=== PATIENT | female | born 1955 | race African-American/Black ===

== ENCOUNTER → 2016-07-03 | Outpatient (CLI) | payer OTHER ==
[2015-02-20 14:38] VITALS: BP 149/84
[~2016-07-03] MED LIST: ADAL40PE SQ; CHOL10003 PO; DOCU-27 PO; FOLI1TAB16 PO; FOLIC ACID PO; HYDR-965 PO; HYDR12.58 PO; HYDR25TA9 PO; LOSA25TA4 PO; METH2.5T PO; METO25TA4 PO; METO50TA2 PO; MULT1TAB52 PO; ONDA4TAB10 PO; SIMV40TA3 PO; TRAM-29 PO
[2016-07-03 12:13] LABS: BASO # 0.1 x10^3/uL (0.0-0.2); BASO % 1 % (0-3); EOS % 2 % (0-3); HEMOGLOBIN 12.4 g/dL (12.0-15.5); LYMPH # 1.4 x10^3/uL (1.0-4.8); LYMPH % 30 % (24-48); MEAN CORPUSCULAR HEMOGLOBIN 30 pg (25-35); MEAN CORPUSCULAR HGB CONC 33 g/dL (31-37); MEAN CORPUSCULAR VOLUME 92 fL (79-100); MONO % 10 % (0-9); NEUT % 57 % (31-73); PLATELET COUNT 217 x10^3/uL (140-400); RED BLOOD COUNT 4.12 x10^6/uL (3.50-5.40); RED CELL DISTRIBUTION WIDTH 12.7 % (11.5-14.5); WHITE BLOOD COUNT 4.5 x10^3/uL (4.0-11.0)
[2016-07-03 13:18] LABS: ALBUMIN 3.7 g/dL (3.4-5.0); ALBUMIN/GLOBULIN RATIO 1.1 (1.0-1.7); CALCIUM 9.2 mg/dL (8.5-10.1); CREATININE 0.8 mg/dL (0.6-1.0); GFR 87.7; POTASSIUM 4.4 mmol/L (3.5-5.1); TOTAL BILIRUBIN 0.7 mg/dL (0.2-1.0)
[2016-07-03 13:51] LABS: C-REACTIVE PROTEIN 0.9 mg/L (0-3.3)
== END | disposition home or self-care (01) ==
LOC: LAB 11:38
PROVIDERS: ATTEND Internal Medicine Rheumatology
DX: Z79.899 Other long term (current) drug therapy (principal)
CPT/HCPCS: 36415; 80053; 85027; 85651; 86140

== ENCOUNTER → 2017-01-12 | Outpatient (CLI) | payer OTHER ==
[2015-02-20 14:38] VITALS: BP 149/84
[~2017-01-12] MED LIST changes: +DOCU-109 PO; -DOCU-27 PO; -TRAM-29 PO; +TRAM-48 PO
--- NOTE | 2017-01-12 11:52 | RAD ---
Chest, 2 views, 01/12/2017: History: Shortness of breath, hypertension Comparison is made to a study from 10/26/2008. A left-sided transvenous pacemaker remains in place with 2 leads extending into the right heart. The heart size and pulmonary vascularity are normal. There are surgical sutures in the right lower chest with adjacent streaky parenchymal opacities probably representing scarring. There is a small nodule projected over the right upper chest. It has shown no definite change since 10/25/2008, favoring a benign etiology. There is a 2 cm nodular opacity projected over the left lower chest. This was not visible on the previous exams. There is no evidence of pleural fluid. IMPRESSION: 1. Postsurgical change in the right lung base with probable pleural-parenchymal scarring. 2. Persistent right upper lung pulmonary nodule. 3. New left lower lung nodule. CT scanning is suggested for further evaluation, if clinically indicated.
== END | disposition home or self-care (01) ==
LOC: RAD 11:21
PROVIDERS: ATTEND Internal Medicine Cardiovascular Disease
DX: R91.8 Other nonspecific abnormal finding of lung field (principal); I10 Essential (primary) hypertension; R91.1 Solitary pulmonary nodule; R06.02 Shortness of breath; Z95.0 Presence of cardiac pacemaker
CPT/HCPCS: 71020

== ENCOUNTER → 2017-01-20 | Outpatient (CLI) | payer OTHER ==
[2015-02-20 14:38] VITALS: BP 149/84
--- NOTE | 2017-01-20 09:44 | KCIC ---
Indication: Pulmonary nodules. Technique: Axial images and coronal and sagittal reformatted images are provided. Comparison is a chest radiograph from 8 days earlier. One or more of the following individualized dose reduction techniques were utilized for this examination: 1. Automated exposure control 2. Adjustment of the mA and/or kV according to patient size 3. Use of iterative reconstruction technique Findings: There are several noncalcified pulmonary nodules bilaterally, some of which appears some solid, measuring up to 6 mm in size. There is a calcified granuloma on the right. There is a large calcified granuloma on the left corresponding to the area of concern on chest radiograph. There are areas of presumed pleural parenchymal scarring in the right lung base. There is mild emphysema. There is no pleural effusion. There is mild diffuse groundglass opacity in both lower lobes. Central airways are patent. There is no pleural effusion. Pacemaker is noted. There is atheromatous disease in the thoracic aorta. There are calcified mediastinal lymph nodes. There are coronary artery calcifications. There is probably a small hiatal hernia. A few prevascular lymph nodes are mildly prominent but subcentimeter short axis. No definite hilar or mediastinal adenopathy on this noncontrast study is apparent. There are degenerative changes in the spine. IMPRESSION: 1. Pulmonary nodules for which 3-6 month follow-up would be recommended per Fleischner Society. Follow-up closer to 3 months would be beneficial given although additional findings described below. 2. Lower lobe diffuse groundglass opacity could be secondary to edema or infection, can also be reevaluated in 3 months. 3. Calcified granulomas correspond to the 2 nodules visualized by radiograph. 4. Emphysema. Electronically signed by: Tad Barr MD (01/20/2017 9:41 AM) [id number]
== END | disposition home or self-care (01) ==
LOC: KCIC CT 08:09
PROVIDERS: ATTEND Internal Medicine
DX: J43.9 Emphysema, unspecified (principal); R91.1 Solitary pulmonary nodule
CPT/HCPCS: 71250

== ENCOUNTER → 2017-01-29 | Outpatient (CLI) | payer OTHER ==
[2015-02-20 14:38] VITALS: BP 149/84
[2017-01-29 12:09] LABS: CALCIUM 9.8 mg/dL (8.5-10.1); CREATININE 0.8 mg/dL (0.6-1.0); GFR 87.7; POTASSIUM 4.2 mmol/L (3.5-5.1)
== END | disposition home or self-care (01) ==
LOC: LAB 11:08
PROVIDERS: ATTEND Internal Medicine
DX: E87.6 Hypokalemia (principal)
CPT/HCPCS: 36415; 80048

== ENCOUNTER → 2017-02-05 | Outpatient (CLI) | payer OTHER ==
[2015-02-20 14:38] VITALS: BP 149/84
--- NOTE | 2017-02-05 09:56 | CARD ---
APPROVED REPORT EXAM: Two-dimensional and M-mode echocardiogram with Doppler and color Doppler. Other Information Quality : Good INDICATION Dyspnea Third Degree AV Block 2D DIMENSIONS RVDd2.2 (2.9-3.5cm)Left Atrium(2D)2.9 (1.6-4.0cm) IVSd1.5 (0.7-1.1cm)Aortic Root(2D)2.7 (2.0-3.7cm) LVDd3.2 (3.9-5.9cm)LVOT Diameter1.9 (1.8-2.4cm) PWd1.1 (0.7-1.1cm)LVDs1.9 (2.5-4.0cm) FS (%) 30.0 %SV29.2 ml LVEF(%)60.0 (>50%) Aortic Valve AoV Peak Davidson.101.0cm/sAoV VTI16.7cm AO Peak GR.4.1mmHgLVOT Peak Davidson.87.0cm/s AO Mean GR.2mmHgAVA (VMAX)2.51cm2 KIMBERLEE (VTI)2.80cm2 Mitral Valve MV E Igbtmhcs71.5cm/sMV DECEL UHOD857ef MV A Cstahshl10.3cm/sE/A Ratio0.7 Tricuspid Valve TR P. Cxhqcsxd271mf/sRAP NLWKLZKW3kfAy TR Peak Gr.69acDvMVJB74wmZn Pulmonary Vein S1 Zibzodkb37.9cm/sD2 Wxfaekbk86.6cm/s LEFT VENTRICLE The left ventricle is normal size. There is mild asymmetric septal hypertrophy. The left ventricular systolic function is normal. The Ejection Fraction is 60-65%. There is normal LV segmental wall motio n. Transmitral Doppler flow pattern is Grade I-abnormal relaxation pattern. RIGHT VENTRICLE The right ventricle is normal size. The right ventricular systolic function is normal. There is a pac emaker lead in the right ventricle. ATRIA The left atrium size is normal. The right atrium size is normal. A pacemaker is seen in the right atr ium consistent with history. The interatrial septum is intact with no evidence for an atrial septal d efect or patent foramen ovale as noted on 2-D or Doppler imaging. AORTIC VALVE The aortic valve is calcified but opens well. Doppler and Color Flow revealed no significant aortic r egurgitation. There is no significant aortic valvular stenosis. MITRAL VALVE The mitral valve is normal in structure and function. Mitral annular calcification is mild. There is no evidence of mitral valve prolapse. There is no mitral valve stenosis. Doppler and Color-flow revea led trace mitral regurgitation. TRICUSPID VALVE The tricuspid valve is normal in structure and function. Doppler and Color Flow revealed mild tricusp id regurgitation. There is moderate pulmonary hypertension. The PA pressure was estimated at 52 mmHg. There is no tricuspid valve stenosis. PULMONIC VALVE The pulmonary valve is normal in structure and function. Doppler and Color Flow revealed no pulmonic valvular regurgitation. There is no pulmonic valvular stenosis. GREAT VESSELS The aortic root is normal in size. The ascending aorta is not well seen. The IVC is normal in size an d collapses >50% with inspiration. PERICARDIAL EFFUSION There is no evidence of significant pericardial effusion. Critical Notification Critical Value: No <Conclusion> The left ventricular systolic function is normal. The Ejection Fraction is 60-65%. There is normal LV segmental wall motion. Transmitral Doppler flow pattern is Grade I-abnormal relaxation pattern. There is a pacemaker lead in the right atrium and right ventricle. Trace mitral regurgitation. Mild tricuspid regurgitation. The PA pressure was estimated at 52 mmHg. There is no evidence of significant pericardial effusion.
== END | disposition home or self-care (01) ==
LOC: ECHO 08:19
PROVIDERS: ATTEND Internal Medicine Cardiovascular Disease
DX: I07.1 Rheumatic tricuspid insufficiency (principal); I44.2 Atrioventricular block, complete; R06.00 Dyspnea, unspecified; Z95.0 Presence of cardiac pacemaker
CPT/HCPCS: 93306

== ENCOUNTER → 2017-04-12 | Outpatient (CLI) | payer OTHER ==
[2015-02-20 14:38] VITALS: BP 149/84
[~2017-04-12] MED LIST changes: -METO50TA2 PO; +METO50TA6 PO; +ZOLPIDEM 5 MG TABLET. PO ONE
--- NOTE | 2017-04-13 14:08 | SLEEP ---
DATE OF STUDY: 04/12/2017 ATTENDING PHYSICIAN: Dr. Adi Davidson. REFERRING PHYSICIAN: Dr. Macario Carrera. The patient is a 61-year-old who weighs 168 pounds with a BMI of 29. The patient underwent sleep study at [facility]. The patient's [place] score was 5. During the night study, the patient spent 428 minutes in bed and slept for 392 minutes with a sleep efficiency of 92%. Sleep latency was 11 minutes with a REM latency of 206 minutes. Overall, sleep architecture showed normal stage 1 sleep, increased stage 2 sleep, normal slow wave and reduced REM sleep. During the night study, the patient had 2 obstructive apneas, 3 mixed and no central apneas and 52 hypopneas. The patient's apnea-hypopnea index was 9 per hour, supine index 9 per hour and a REM index of 38 per hour. Review of nocturnal oximetry study revealed a mean oxygen saturation of 87% with the lowest of 67%. A 90% of time oxygen saturation remained between 80% and 89% and 8% of the time between 70% and 79%. Nocturnal hypoxia was worse during REM sleep. EKG monitoring revealed an average heart rate of 58 beats per minute, no sustained arrhythmias were observed. Periodic limb movements in sleep were not seen. IMPRESSION: 1. Mild sleep apnea-hypopnea syndrome with worsening during REM sleep. Total apnea-hypopnea index 9 per hour with a REM apnea-hypopnea index of 38 per hour. 2. Moderate nocturnal hypoxia secondary to obstructive sleep apnea. The hypoxia was worse during REM sleep. 3. No clinically significant periodic limb movements in sleep. RECOMMENDATIONS: 1. The patient would benefit from treatment of sleep apnea with either CPAP or oral appliance to improve the patient's symptoms and also to improve nocturnal hypoxia. 2. Avoid central nervous system depressants. 3. Cautioned regarding driving until symptoms of sleep apnea have resolved with the above recommendations. 4. If the patient undergoes CPAP titration, then she should be followed up in 4-6 weeks to assess compliance with CPAP and to document clinical improvement. JOSE CRUZ VELASQUEZ MD DR: AYLEEN/sanchez JOB#: [id number] / [id number] MACARIO Metz MD
== END | disposition home or self-care (01) ==
LOC: RT 18:06
PROVIDERS: ATTEND Internal Medicine Pulmonary Disease
DX: G47.33 Obstructive sleep apnea (adult) (pediatric) (principal); R09.02 Hypoxemia
CPT/HCPCS: 95810

== ENCOUNTER → 2017-04-16 | Outpatient (CLI) | payer OTHER ==
[2015-02-20 14:38] VITALS: BP 149/84
[~2017-04-16] MED LIST changes: -ZOLPIDEM 5 MG TABLET. PO ONE
[2017-04-16 11:24] LABS: BASO # 0.1 x10^3/uL (0.0-0.2); BASO % 1 % (0-3); EOS % 4 % (0-3); HEMATOCRIT 42.1 % (36.0-47.0); HEMOGLOBIN 13.7 g/dL (12.0-15.5); LYMPH # 1.2 x10^3/uL (1.0-4.8); LYMPH % 18 % (24-48); MEAN CORPUSCULAR HEMOGLOBIN 29 pg (25-35); MEAN CORPUSCULAR HGB CONC 33 g/dL (31-37); MEAN CORPUSCULAR VOLUME 89 fL (79-100); MONO % 10 % (0-9); NEUT % 67 % (31-73); PLATELET COUNT 264 x10^3/uL (140-400); RED BLOOD COUNT 4.73 x10^6/uL (3.50-5.40); RED CELL DISTRIBUTION WIDTH 13.2 % (11.5-14.5); WHITE BLOOD COUNT 6.7 x10^3/uL (4.0-11.0)
[2017-04-16 11:39] LABS: ALBUMIN 3.4 g/dL (3.4-5.0); ALBUMIN/GLOBULIN RATIO 0.8 (1.0-1.7); CALCIUM 9.4 mg/dL (8.5-10.1); CREATININE 0.8 mg/dL (0.6-1.0); GFR 87.7; MAGNESIUM 1.8 mg/dL (1.8-2.4); POTASSIUM 3.3 mmol/L (3.5-5.1); TOTAL BILIRUBIN 0.8 mg/dL (0.2-1.0); TOTAL PROTEIN 7.8 g/dL (6.4-8.2)
== END | disposition home or self-care (01) ==
LOC: LAB 11:08
PROVIDERS: ATTEND Internal Medicine
DX: I10 Essential (primary) hypertension (principal)
CPT/HCPCS: 36415; 80053; 83735; 85025

== ENCOUNTER → 2017-07-05 | Outpatient (CLI) | payer OTHER ==
[2017-07-05] MEDS: ZOLPIDEM 5 MG TABLET. PO (22:00)
[2017-07-06] MEDS: OXYMETAZOLINE 0.05% NASAL SPRAY 30ML BOTTLE. NS (03:30)
== END | disposition home or self-care (01) ==
LOC: SLPLAB 18:27
DX: G47.33 Obstructive sleep apnea (adult) (pediatric) (principal)
CPT/HCPCS: 94660

== ENCOUNTER → 2017-07-09 | Outpatient (CLI) | payer OTHER ==
[2017-07-09 09:58] LABS: ADD MAN DIFF? NO
[2017-07-09 10:05] LABS: BASO % 1 % (0-3); EOS # 0.2 x10^3/uL (0.0-0.7); EOS % 4 % (0-3); HEMATOCRIT 41.6 % (36.0-47.0); HEMOGLOBIN 13.6 g/dL (12.0-15.5); LYMPH # 1.1 x10^3/uL (1.0-4.8); LYMPH % 19 % (24-48); MEAN CORPUSCULAR HEMOGLOBIN 29 pg (25-35); MEAN CORPUSCULAR HGB CONC 33 g/dL (31-37); MEAN CORPUSCULAR VOLUME 89 fL (79-100); MONO # 0.5 x10^3/uL (0.0-1.1); MONO % 9 % (0-9); NEUT # 3.9 x10^3uL (1.8-7.7); NEUT % 68 % (31-73); PLATELET COUNT 280 x10^3/uL (140-400); RED BLOOD COUNT 4.67 x10^6/uL (3.50-5.40); RED CELL DISTRIBUTION WIDTH 13.1 % (11.5-14.5); WHITE BLOOD COUNT 5.7 x10^3/uL (4.0-11.0)
[2017-07-09 10:21] LABS: ALBUMIN 3.6 g/dL (3.4-5.0); ALBUMIN/GLOBULIN RATIO 0.8 (1.0-1.7); ALK PHOS 105 U/L (46-116); ALT (SGPT) 24 U/L (14-59); ANION GAP 5 (6-14); AST (SGOT) 17 U/L (15-37); BLOOD UREA NITROGEN 10 mg/dL (7-20); BUN/CREATININE RATIO 13 (6-20); CALCIUM 9.9 mg/dL (8.5-10.1); CARBON DIOXIDE 33 mmol/L (21-32); CHLORIDE 105 mmol/L (98-107); CREATININE 0.8 mg/dL (0.6-1.0); GFR 87.4; GLUCOSE 97 mg/dL (70-99); POTASSIUM 3.6 mmol/L (3.5-5.1); SODIUM 143 mmol/L (136-145); TOTAL BILIRUBIN 0.5 mg/dL (0.2-1.0); TOTAL PROTEIN 7.9 g/dL (6.4-8.2)
[2017-07-09 10:30] LABS: THYROID STIM HORMONE (TSH) 1.608 uIU/mL (0.358-3.74)
== END | disposition home or self-care (01) ==
LOC: LAB 09:45
DX: I10 Essential (primary) hypertension (principal)
CPT/HCPCS: 36415; 80053; 84443; 85025

== ENCOUNTER → 2017-07-09 | Outpatient (CLI) | payer OTHER | END | disposition home or self-care (01) | LOC: KCIC CT 09:09 | DX: J43.9 Emphysema, unspecified (principal); I25.10 Atherosclerotic heart disease of native coronary artery without angina pectoris | CPT/HCPCS: 71250 ==

== ENCOUNTER → 2017-07-23 | Outpatient (CLI) | payer OTHER ==
[2017-07-23 11:39] LABS: C-REACTIVE PROTEIN 21.9 mg/L (0-3.3)
[2017-07-23 12:18] LABS: SEDIMENTATION RATE 58 (0-25)
[2017-07-27 09:31] LABS: T-SPOT TB TEST(OXFORD) SEE SEPARATE REPORT
== END | disposition home or self-care (01) ==
LOC: LAB 11:03
DX: Z79.899 Other long term (current) drug therapy (principal)
CPT/HCPCS: 36415; 85651; 86140; 86481

== ENCOUNTER → 2017-11-19 | Outpatient (CLI) | payer OTHER ==
[2017-11-19 11:41] LABS: ADD MAN DIFF? NO
[2017-11-19 11:49] LABS: BASO # 0.1 x10^3/uL (0.0-0.2); BASO % 1 % (0-3); EOS # 0.2 x10^3/uL (0.0-0.7); EOS % 3 % (0-3); HEMATOCRIT 40.6 % (36.0-47.0); HEMOGLOBIN 13.6 g/dL (12.0-15.5); LYMPH # 1.2 x10^3/uL (1.0-4.8); LYMPH % 21 % (24-48); MEAN CORPUSCULAR HEMOGLOBIN 31 pg (25-35); MEAN CORPUSCULAR HGB CONC 33 g/dL (31-37); MEAN CORPUSCULAR VOLUME 91 fL (79-100); MONO # 0.4 x10^3/uL (0.0-1.1); MONO % 7 % (0-9); NEUT # 3.7 x10^3uL (1.8-7.7); NEUT % 68 % (31-73); PLATELET COUNT 249 x10^3/uL (140-400); RED BLOOD COUNT 4.46 x10^6/uL (3.50-5.40); RED CELL DISTRIBUTION WIDTH 13.2 % (11.5-14.5); WHITE BLOOD COUNT 5.5 x10^3/uL (4.0-11.0)
[2017-11-19 12:00] LABS: ALBUMIN 3.5 g/dL (3.4-5.0); ALBUMIN/GLOBULIN RATIO 0.9 (1.0-1.7); ALK PHOS 84 U/L (46-116); ALT (SGPT) 21 U/L (14-59); ANION GAP 8 (6-14); AST (SGOT) 20 U/L (15-37); BLOOD UREA NITROGEN 12 mg/dL (7-20); BUN/CREATININE RATIO 12 (6-20); CALCIUM 9.1 mg/dL (8.5-10.1); CARBON DIOXIDE 32 mmol/L (21-32); CHLORIDE 101 mmol/L (98-107); CHOLESTEROL 158 mg/dL (0-200); CREATINE KINASE 201 U/L (26-192); GFR 67.5; GLUCOSE 109 mg/dL (70-99); HDLC 51 mg/dL (40-60); LDLC 95 mg/dL (0-100); NON-HDL CHOLESTEROL 107 mg/dL (0-129); POTASSIUM 3.3 mmol/L (3.5-5.1); SODIUM 141 mmol/L (136-145); TOTAL BILIRUBIN 0.8 mg/dL (0.2-1.0); TOTAL PROTEIN 7.3 g/dL (6.4-8.2); TRIGLYCERIDES 59 mg/dL (0-150); VLDLC 12 mg/dL (0-40)
[2017-11-19 12:03] LABS: CHOLESTEROL/HDL RATIO 3.1
== END | disposition home or self-care (01) ==
LOC: LAB 11:27
DX: I10 Essential (primary) hypertension (principal); E78.2 Mixed hyperlipidemia
CPT/HCPCS: 36415; 80053; 80061; 82550; 85025

== ENCOUNTER → 2017-12-24 | Outpatient (CLI) | payer OTHER ==
[2015-02-20 14:38] VITALS: BP 149/84
[2017-12-24 12:53] LABS: BASO # 0.1 x10^3/uL (0.0-0.2); BASO % 1 % (0-3); EOS # 0.2 x10^3/uL (0.0-0.7); EOS % 3 % (0-3); HEMATOCRIT 43.7 % (36.0-47.0); HEMOGLOBIN 14.6 g/dL (12.0-15.5); LYMPH # 1.4 x10^3/uL (1.0-4.8); LYMPH % 24 % (24-48); MEAN CORPUSCULAR HEMOGLOBIN 31 pg (25-35); MEAN CORPUSCULAR HGB CONC 33 g/dL (31-37); MEAN CORPUSCULAR VOLUME 92 fL (79-100); MONO # 0.5 x10^3/uL (0.0-1.1); MONO % 8 % (0-9); NEUT # 3.8 x10^3uL (1.8-7.7); NEUT % 64 % (31-73); PLATELET COUNT 240 x10^3/uL (140-400); RED BLOOD COUNT 4.74 x10^6/uL (3.50-5.40); WHITE BLOOD COUNT 5.9 x10^3/uL (4.0-11.0)
[2017-12-24 13:00] LABS: C-REACTIVE PROTEIN 2.1 mg/L (0-3.3); CALCIUM 9.3 mg/dL (8.5-10.1); GFR 67.5; POTASSIUM 3.1 mmol/L (3.5-5.1); TOTAL BILIRUBIN 0.7 mg/dL (0.2-1.0); TOTAL PROTEIN 8.2 g/dL (6.4-8.2)
== END | disposition home or self-care (01) ==
LOC: LAB 12:27
PROVIDERS: ATTEND Internal Medicine Rheumatology
DX: I25.10 Atherosclerotic heart disease of native coronary artery without angina pectoris (principal); I10 Essential (primary) hypertension; E78.5 Hyperlipidemia, unspecified; E78.00 Pure hypercholesterolemia, unspecified; J43.9 Emphysema, unspecified; E87.6 Hypokalemia; Z79.899 Other long term (current) drug therapy; Z95.0 Presence of cardiac pacemaker; Z90.710 Acquired absence of both cervix and uterus
CPT/HCPCS: 36415; 80053; 85025; 85651; 86140

== ENCOUNTER → 2018-04-29 | Outpatient (CLI) | payer OTHER ==
[2015-02-20 14:38] VITALS: BP 149/84
[~2018-04-29] MED LIST changes: +HYDR-2145 PO; +HYDR-3165 PO; -HYDR-965 PO; -HYDR25TA9 PO; -LOSA25TA4 PO; +LOSA25TA54 PO
[2018-04-29 11:56] LABS: ALBUMIN 3.1 g/dL (3.4-5.0); ALBUMIN/GLOBULIN RATIO 0.6 (1.0-1.7); CALCIUM 9.4 mg/dL (8.5-10.1); CREATININE 0.9 mg/dL (0.6-1.0); GFR 76.3; POTASSIUM 3.7 mmol/L (3.5-5.1); TOTAL BILIRUBIN 0.8 mg/dL (0.2-1.0)
[2018-04-29 12:01] LABS: CHOLESTEROL/HDL RATIO 2.9
== END | disposition home or self-care (01) ==
LOC: LAB 11:03
PROVIDERS: ATTEND Internal Medicine
DX: I10 Essential (primary) hypertension (principal); E78.2 Mixed hyperlipidemia
CPT/HCPCS: 36415; 80053; 80061; 82550; 84443

== ENCOUNTER 2018-06-28 11:49 | Inpatient (IN) | payer OTHER ==
[~2018-06-28] VITALS: Ht 162.6 cm; Wt 66.9 kg
--- NOTE | 2018-06-28 12:05 | PHYS DOC ---
Adult General Chief Complaint Chief Complaint: SHORTNESS OF BREATH HPI HPI Patient is a 63 year old female presented to ER today for evaluation of trouble breathing for about 2 weeks. Patient said her trouble breathing getting worse the last two days. Patient says she has history of COPD, former smoker. She is not on oxygen at home. She denies any chest pain. sHe had a pacemaker. She denies any cough or fever. Upon arrival to ER, her oxygen saturation was 75% on room air. Review of Systems Review of Systems Constitutional: Denies fever or chills [] Eyes: Denies change in visual acuity, redness, or eye pain [] HENT: Denies nasal congestion or sore throat [] Respiratory: Positive for cough and shortness of breath [] Cardiovascular: Positive for shortness of air. NO CHEST PAIN GI: Denies abdominal pain, nausea, vomiting, bloody stools or diarrhea [] : Denies dysuria or hematuria [] Musculoskeletal: Denies back pain or joint pain [] Integument: Denies rash or skin lesions [] Neurologic: Denies headache, focal weakness or sensory changes [] Endocrine: Denies polyuria or polydipsia [] All other systems were reviewed and found to be within normal limits, except as documented in this note. Current Medications Current Medications Current Medications Medications (Trade) Dose Ordered Sig/Riccardo Start Time Stop Time Status Last Admin Dose Admin Albuterol/ Ipratropium (Duoneb) 3 ml RTQID 06/28/18 16:00 06/29/18 15:59 Furosemide (Lasix) 40 mg 1X ONCE 06/28/18 12:15 06/28/18 12:16 DC 06/28/18 12:50 40 MG Methylprednisolone Sodium Succinate (SOLU-Medrol 125MG VIAL) 125 mg 1X ONCE 06/28/18 12:15 06/28/18 12:16 DC 06/28/18 12:50 125 MG Ondansetron HCl (Zofran) 4 mg PRN Q8HRS PRN 06/28/18 14:00 06/29/18 13:59 Allergies Allergies Allergies Coded Allergies Type Severity Reaction Last Updated Verified Penicillins Allergy Intermediate RASH AND ITCHING 02/19/15 Yes YADI Inhibitors Adverse Reaction Intermediate COUGH 02/19/15 Yes Physical Exam Physical Exam Constitutional: Well developed, well nourished, no acute distress, non-toxic appearance. [] HENT: Normocephalic, atraumatic, bilateral external ears normal, oropharynx moist, no oral exudates, nose normal. [] Eyes: PERRLA, EOMI, conjunctiva normal, no discharge. [] Neck: Normal range of motion, no tenderness, supple, no stridor. [] Cardiovascular:Heart rate regular rhythm, no murmur [] Lungs & Thorax: Decreased air movement throughout lung cooper, rales at lung bases. Abdomen: Bowel sounds normal, soft, no tenderness, no masses, no pulsatile masses. [] Skin: Warm, dry, no erythema, no rash. [] Back: No tenderness, no CVA tenderness. [] Extremities: No tenderness, no cyanosis, no clubbing, ROM intact, no edema. [] Neurologic: Alert and oriented X 3, normal motor function, normal sensory function, no focal deficits noted. [] Psychologic: Affect normal, judgement normal, mood normal. [] Current Patient Data Vital Signs Vital Signs Date Time Temp Pulse Resp B/P (MAP) Pulse Ox O2 Delivery O2 Flow Rate FiO2 06/28/18 12:31 94 Nasal Cannula 5.0 06/28/18 11:49 98.4 95 21 181/108 (132) 98.4 Lab Values Laboratory Tests Test 06/28/18 12:17 06/28/18 12:20 06/28/18 12:25 06/28/18 13:20 O2 Saturation 93 % (92-99) Arterial Blood pH 7.41 (7.35-7.45) Arterial Blood pCO2 at Patient Temp 49 mmHg (35-46) H Arterial Blood pO2 at Patient Temp 71 mmHg (65-108) Arterial Blood HCO3 30 mmol/L (21-28) H Arterial Blood Base Excess 4 mmol/L (-3-3) H FiO2 40% nc White Blood Count 10.2 x10^3/uL (4.0-11.0) Red Blood Count 5.21 x10^6/uL (3.50-5.40) Hemoglobin 15.4 g/dL (12.0-15.5) Hematocrit 48.3 % (36.0-47.0) H Mean Corpuscular Volume 93 fL (79-100) Mean Corpuscular Hemoglobin 30 pg (25-35) Mean Corpuscular Hemoglobin Concent 32 g/dL (31-37) Red Cell Distribution Width 13.8 % (11.5-14.5) Platelet Count 251 x10^3/uL (140-400) Neutrophils (%) (Auto) 83 % (31-73) H Lymphocytes (%) (Auto) 7 % (24-48) L Monocytes (%) (Auto) 9 % (0-9) Eosinophils (%) (Auto) 0 % (0-3) Basophils (%) (Auto) 1 % (0-3) Neutrophils # (Auto) 8.4 x10^3uL (1.8-7.7) H Lymphocytes # (Auto) 0.7 x10^3/uL (1.0-4.8) L Monocytes # (Auto) 0.9 x10^3/uL (0.0-1.1) Eosinophils # (Auto) 0.0 x10^3/uL (0.0-0.7) Basophils # (Auto) 0.1 x10^3/uL (0.0-0.2) Sodium Level 141 mmol/L (136-145) Potassium Level 3.5 mmol/L (3.5-5.1) Chloride Level 99 mmol/L (98-107) Carbon Dioxide Level 35 mmol/L (21-32) H Anion Gap 7 (6-14) Blood Urea Nitrogen 15 mg/dL (7-20) Creatinine 0.9 mg/dL (0.6-1.0) Estimated GFR (Cockcroft-Gault) 76.0 BUN/Creatinine Ratio 17 (6-20) Glucose Level 132 mg/dL (70-99) H Calcium Level 9.5 mg/dL (8.5-10.1) Total Bilirubin 1.6 mg/dL (0.2-1.0) H Aspartate Amino Transferase (AST) 43 U/L (15-37) H Alanine Aminotransferase (ALT) 49 U/L (14-59) Alkaline Phosphatase 79 U/L (46-116) Creatine Kinase 221 U/L (26-192) H Creatine Kinase MB (Mass) 2.5 ng/mL (0.0-3.6) Creatine Kinase MB Relative Index 1.1 % (0-4) Troponin I Quantitative 0.047 ng/mL (0.000-0.055) WQ-Zrx-K-Type Natriuretic Peptide 3891 pg/mL (0-124) H Total Protein 8.0 g/dL (6.4-8.2) Albumin 3.6 g/dL (3.4-5.0) Albumin/Globulin Ratio 0.8 (1.0-1.7) L Urine Collection Type Void Urine Color Yellow Urine Clarity Clear Urine pH 6.0 Urine Specific [place] 1.010 Urine Protein 100 mg/dL (NEG-TRACE) Urine Glucose (UA) Negative mg/dL (NEG) Urine Ketones (Stick) Negative mg/dL (NEG) Urine Blood Trace (NEG) Urine Nitrite Negative (NEG) Urine Bilirubin Negative (NEG) Urine Urobilinogen Dipstick 0.2 mg/dL (0.2 mg/dL) Urine Leukocyte Esterase Small (NEG) Urine RBC Rare /HPF (0-2) Urine WBC Rare /HPF (0-4) Urine Squamous Epithelial Cells Few /LPF Urine Bacteria Few /HPF (0-FEW) Laboratory Tests 06/28/18 12:20 Laboratory Tests 06/28/18 12:25 EKG EKG EKG WAS READ BY THIS DOCTOR AT 12 AM RATE OF 92 BPM, NO STEMI, SINUS RHYTHM. Radiology/Procedures Radiology/Procedures [][facility] [address] [place], [place] [id number] IMAGING REPORT Signed PATIENT: RG GUTIERRES ACCOUNT: [id number] : 1955 LOCATION: ER AGE: 63 SEX: F EXAM STATUS: REG ER ORD. PHYSICIAN: KATRINA QUINTEROS DO REASON: SOA PROCEDURE: PORTABLE CHEST 1V PORTABLE CHEST 1V Clinical Indication: SHORT OF AIR Comparison: CT chest without contrast, July 09, 2017. Findings: Left chest dual-chamber pacer. Atherosclerotic aortic arch. Cardiac size normal. Large calcified granulomas right upper lung and left midlung are stable. Suture material and tenting of the right hemidiaphragm with mild pleural thickening is unchanged. No lung consolidation. No pneumothorax. Bones unremarkable. IMPRESSION: No acute cardiopulmonary process. Stable chest findings. Electronically signed by: Donte Thomas MD (06/28/2018 1:03 PM) [id number] DICTATED and SIGNED BY: DONTE THOMAS MD DATE: 06/28/18 1258 Course & Med Decision Making Course & Med Decision Making Pertinent Labs and Imaging studies reviewed. (See chart for details) Patient was given DuoNeb treatment in the ER, she was also given 40 mg Lasix IV. Patient feels much better. Patient's oxygen saturation was 95% on 2 L oxygen. Dragon Disclaimer Dragon Disclaimer This electronic medical record was generated, in whole or in part, using a voice recognition dictation system. Departure Departure Impression: Primary Impression: CHF (congestive heart failure) Additional Impression: COPD exacerbation Disposition: 09 ADMITTED INPATIENT Admitting Physician: Caroline Davidson Condition: IMPROVED Referrals: CAROLINE DAVIDSON MD (PCP) Problem Qualifiers KATRINA QUINTEROS DO Jun 28, 2018 12:05
[2018-06-28] MEDS ORDERED: IPRATRPIUM/ALBUTEROL 0.5/2.5MG 3 ML NEBU. NEB ONE (12:15)
[2018-06-28] MEDS ORDERED: FUROSEMIDE 40 MG/4 ML VIAL. IVP ONE (12:15)
[2018-06-28] MEDS ORDERED: methylPREDNISolone SOD SUCC PF 125 MG/2 ML VIAL. IV ONE (12:15)
[2018-06-28 12:26] LABS: BASO # 0.1 x10^3/uL (0.0-0.2); BASO % 1 % (0-3); EOS % 0 % (0-3); HEMATOCRIT 48.3 % (36.0-47.0); HEMOGLOBIN 15.4 g/dL (12.0-15.5); LYMPH # 0.7 x10^3/uL (1.0-4.8); LYMPH % 7 % (24-48); MEAN CORPUSCULAR HEMOGLOBIN 30 pg (25-35); MEAN CORPUSCULAR HGB CONC 32 g/dL (31-37); MEAN CORPUSCULAR VOLUME 93 fL (79-100); MONO # 0.9 x10^3/uL (0.0-1.1); MONO % 9 % (0-9); NEUT # 8.4 x10^3uL (1.8-7.7); NEUT % 83 % (31-73); PLATELET COUNT 251 x10^3/uL (140-400); RED BLOOD COUNT 5.21 x10^6/uL (3.50-5.40); RED CELL DISTRIBUTION WIDTH 13.8 % (11.5-14.5); WHITE BLOOD COUNT 10.2 x10^3/uL (4.0-11.0)
[2018-06-28 12:50] LABS: BASE EXCESS ABG 4 mmol/L (-3-3); HCO3 ABG 30 mmol/L (21-28); PCO2 ABG 49 mmHg (35-46); PO2 ABG 71 mmHg (65-108); SAT O2 ABG 93 % (92-99)
[2018-06-28 12:53] LABS: FIO2 ABG 40% NC
[2018-06-28 13:06] LABS: CALCIUM 9.5 mg/dL (8.5-10.1); CREATININE 0.9 mg/dL (0.6-1.0); POTASSIUM 3.5 mmol/L (3.5-5.1)
--- NOTE | 2018-06-28 13:06 | RAD ---
PORTABLE CHEST 1V Clinical Indication: SHORT OF AIR Comparison: CT chest without contrast, July 09, 2017. Findings: Left chest dual-chamber pacer. Atherosclerotic aortic arch. Cardiac size normal. Large calcified granulomas right upper lung and left midlung are stable. Suture material and tenting of the right hemidiaphragm with mild pleural thickening is unchanged. No lung consolidation. No pneumothorax. Bones unremarkable. IMPRESSION: No acute cardiopulmonary process. Stable chest findings. Electronically signed by: Donte Thomas MD (06/28/2018 1:03 PM) [id number]
--- NOTE | 2018-06-28 13:11 | EKG ---
[facility] [address] [place] [address] Test Date: 2018-06-28 Test Time: 12:00:06 Pat Name: RG GUTIERRES Department: Room: Gender: F Cart Attendant: : 1955 Requested By: KATRINA QUINTEROS Order Number: [id number] Reading MD: Garrett Josue Measurements Intervals [place] Rate: 92 P: 55 SC: 144 QRS: -108 QRSD: 158 T: 66 QT: 394 QTc: 493 Interpretive Statements ATRIAL SENSED VENTRICULAR PACED RHYTHM Electronically Signed On 07-05-2018 10:57:34 CREDIT RATING CHECKER by Garrett Josue
[2018-06-28 13:12] LABS: ALBUMIN 3.6 g/dL (3.4-5.0); ALBUMIN/GLOBULIN RATIO 0.8 (1.0-1.7); TOTAL BILIRUBIN 1.6 mg/dL (0.2-1.0)
[2018-06-28 13:54] LABS: BILIRUBIN,URINE NEGATIVE (NEG); CLARITY,URINE CLEAR; COLOR,URINE YELLOW; NITRITE,URINE NEGATIVE (NEG); PROTEIN,URINE 100 mg/dL (NEG-TRACE); UROBILINOGEN,URINE 0.2 mg/dL (0.2 mg/dL)
[2018-06-28] MEDS ORDERED: ONDANSETRON PF 4 MG/2 ML VIAL. IV PRN (14:00)
[2018-06-28 14:09] LABS: RBC,URINE RARE /HPF (0-2); WBC,URINE RARE /HPF (0-4)
[2018-06-28 14:10] LABS: BACTERIA,URINE FEW /HPF (0-FEW); SQUAMOUS EPITHELIAL CELL,UR FEW /LPF
[2018-06-28] MEDS: IPRATRPIUM/ALBUTEROL 0.5/2.5MG 3 ML NEBU. NEB SCH ×2 (15:37→19:14)
[2018-06-28 16:24] VITALS: BP 168/99
[2018-06-28] MEDS ORDERED: METO25TA4 PO (17:07)
[2018-06-28] MEDS ORDERED: TRAM50TA PO (17:07)
[2018-06-28] MEDS ORDERED: traMADol 50 MG TABLET PO PRN (17:45)
[2018-06-28] MEDS: ENOXAPARIN 40 MG/0.4 ML SYRINGE. SQ SCH (18:30)
--- NOTE | 2018-06-28 18:54 | PDOC ---
Provider Note Provider Note Patient seen. History and Physical dictated. See dictation# [id number] CAROLINE EATON MD Jun 28, 2018 18:54
[2018-06-28 19:00] VITALS: BP 141/91
--- NOTE | 2018-06-28 19:12 | HP ---
ADMIT DATE: 06/28/2018 HISTORY OF PRESENT ILLNESS: This 63-year-old female has been getting short of breath for some time. The patient states that it has been going on for some time, but she could not tell me how long. The patient does have cough, but the mucus is clear. She denies any fever or chills. She became short of breath in the Emergency Room, oxygen saturation was 75% on room air. The patient admits that she is supposed to be on oxygen by nasal cannula 2 liters per minute at home along with a CPAP machine, but she could not afford and so, she has not been able to get the equipment for quite some time. She has been using her inhalers. In the Emergency Room, the patient was examined and chest x-ray did not show any acute abnormalities; however, her ProBNP was 3891. Troponin was 0.047, albumin was 3.6. Sodium 141, potassium 3.5, BUN 15, creatinine 0.9, glucose 132. WBC count 10.2, hemoglobin was 15.4. ABG revealed pH 7.41, pCO2 49 and pO2 of 71 on 40% nasal cannula. She was placed on 5 liters nasal cannula and because of the acute hypoxic respiratory failure with possible congestive heart failure in a patient known to have COPD, rheumatoid arthritis and coronary artery disease, the patient was admitted for further evaluation and management. REVIEW OF SYSTEMS: The patient denies any fever or chills. The patient denies any nausea, vomiting, diarrhea, abdominal pain. She does admit to joint pains, fatigue, weakness and being short of breath. Other systems reviewed and are negative. PAST MEDICAL HISTORY: The patient is known to have history of hypertension, chronic obstructive pulmonary disease, rheumatoid arthritis of multiple sites without organ involvement with positive rheumatoid factor. She is on Humira. She has a history of weight loss, mixed hyperlipidemia. She also has coronary artery disease. PAST SURGICAL HISTORY: The patient has a history of wrist fracture in 2013, cardiac pacemaker in 2009, right lung resection in 1996 to remove a part of the lump. She has a history of a total hysterectomy. The right lower lung resection that she had was for removal of the lower part of the lump for fungal infection, possible histoplasmosis. FAMILY HISTORY: There is history of father had Parkinson's disease. Mother had stroke. There is family history of hypertension, coronary artery disease and obesity. ALLERGIES: THE PATIENT IS ALLERGIC TO LISINOPRIL THAT CAUSES COUGH. PENICILLIN CAUSES RASH. MEDICATIONS: Reviewed and reconciled. SOCIAL HISTORY: No history of alcoholism or drug abuse. The patient is a former smoker. PHYSICAL EXAMINATION: VITAL SIGNS: Temperature 98.4, pulse 95 per minute, respirations 21 per minute, blood pressure 181/108 mmHg. Now, the blood pressure is 168/99 mmHg, prior to that was 120/69 mmHg. GENERAL: The patient is an elderly female who is alert, oriented x 3 and in mild respiratory distress. SKIN: Warm and dry. There is no cyanosis. The patient is on oxygen by nasal cannula 5 liters per minute. HEENT: Unremarkable. LUNGS: Decreased breath sounds at bases. CARDIOVASCULAR SYSTEM: S1, S2 regular. ABDOMEN: Soft, nontender, no guarding, no rigidity. Bowel sounds present. EXTREMITIES: No edema. EYES: Pupils reacting to light. Conjunctivae pink. Sclerae muddy. CENTRAL NERVOUS SYSTEM: Alert and oriented. LABORATORY FINDINGS: As noted earlier, chest x-ray did not show any acute congestive changes. BNP is 3891. Troponin 0.047. CK 221. Sodium 141, potassium 3.5, BUN 15, creatinine 0.9. WBC count 10.2, hemoglobin 15.4. Urinalysis is negative. IMPRESSION: 1. Acute on chronic hypoxic respiratory failure with hypercapnia. This may be likely because the patient has not been able to afford her oxygen at home and CPAP at home. 2. Acute exacerbation of chronic obstructive pulmonary disease. The patient was given IV Solu-Medrol earlier. We will continue breathing treatment. 3. Acute congestive heart failure. 4. Coronary artery disease. 5. Elevated troponin, may be type 2 demand ischemia. 6. Hypertensive crisis. 7. Rheumatoid arthritis, on Humira. 8. Coronary artery disease. 9. Osteoarthritis. 10. Obstructive sleep apnea. 11. History of cardiac pacemaker. 12. 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 PLAN: We will admit to the hospital. We will enlist the help of administrator social welfare to see if we can get her CPAP and oxygen restored at home. Consult Dr. Beltre for pulmonary evaluation and management, consult Dr. Mcgee for cardiology evaluation and management. I will also replace potassium for hypokalemia. For details, please refer to the orders. CAROLINE EATON MD DR: Bandar JOB#: [id number] / [id number]
[2018-06-28] MEDS: FAMOTIDINE 20 MG TABLET. PO SCH (20:26)
[2018-06-28] MEDS: SIMVASTATIN 40 MG TABLET. PO SCH (20:26)
[2018-06-28] MEDS: POTASSIUM CHLORIDE 20 MEQ TABLET.ER. PO SCH (20:26)
[2018-06-28] MEDS: METOPROLOL TART IMMED RELEASE 25 MG TABLET. PO SCH (20:27)
[2018-06-28 23:00] VITALS: BP 106/79
[2018-06-29 03:00] VITALS: BP 104/69
[2018-06-29 07:00] VITALS: BP 121/77
[2018-06-29 07:01] LABS: BASO # 0.1 x10^3/uL (0.0-0.2); BASO % 1 % (0-3); EOS % 0 % (0-3); HEMATOCRIT 42.4 % (36.0-47.0); HEMOGLOBIN 13.5 g/dL (12.0-15.5); LYMPH # 0.7 x10^3/uL (1.0-4.8); LYMPH % 6 % (24-48); MEAN CORPUSCULAR HEMOGLOBIN 30 pg (25-35); MEAN CORPUSCULAR HGB CONC 32 g/dL (31-37); MEAN CORPUSCULAR VOLUME 93 fL (79-100); MONO # 1.3 x10^3/uL (0.0-1.1); MONO % 12 % (0-9); NEUT # 9.2 x10^3uL (1.8-7.7); NEUT % 81 % (31-73); PLATELET COUNT 208 x10^3/uL (140-400); RED BLOOD COUNT 4.56 x10^6/uL (3.50-5.40); RED CELL DISTRIBUTION WIDTH 13.8 % (11.5-14.5); WHITE BLOOD COUNT 11.2 x10^3/uL (4.0-11.0)
[2018-06-29 07:34] LABS: ALBUMIN 2.3 g/dL (3.4-5.0); ALBUMIN/GLOBULIN RATIO 0.6 (1.0-1.7); CALCIUM 8.8 mg/dL (8.5-10.1); CREATININE 0.7 mg/dL (0.6-1.0); GFR 101.6; POTASSIUM 4.4 mmol/L (3.5-5.1); TOTAL BILIRUBIN 0.9 mg/dL (0.2-1.0)
[2018-06-29] MEDS: IPRATRPIUM/ALBUTEROL 0.5/2.5MG 3 ML NEBU. NEB SCH ×3 (07:49→19:51)
[2018-06-29] MEDS: LOSARTAN POTASSIUM 25 MG TABLET. PO SCH (09:25)
[2018-06-29] MEDS: hydroCHLOROthiazide 12.5 MG CAPSULE PO SCH (09:26)
[2018-06-29] MEDS: POTASSIUM CHLORIDE 20 MEQ TABLET.ER. PO SCH ×2 (09:26→16:58)
[2018-06-29] MEDS: METOPROLOL TART IMMED RELEASE 25 MG TABLET. PO SCH ×2 (09:26→20:18)
--- NOTE | 2018-06-29 10:15 | PDOC ---
IM PROGRESS NOTES- Subjective Subjective Dyspnea is improving Objective Vitals Vital Signs Date Time Temp Pulse Resp B/P (MAP) Pulse Ox O2 Delivery O2 Flow Rate FiO2 06/29/18 09:26 82 121/77 06/29/18 07:50 98 Nasal Cannula 5.0 06/29/18 07:00 98.1 16 98.1 Input & Output Intake and Output 06/29/18 07:00 Intake Total 260 ml Output Total 0 ml Balance 260 ml Intake Oral 260 ml Output Urine Total 0 ml # Voids 2 Physical Exam Physical Exam General appearance -alert, chronically ill, in mild distress, oriented 3 Mental Status - alert, oriented to person, place, and time, affect appropriate to mood Head - normal Chest -decreased breath sounds at bases Heart - S1 and S2 normal Abdomen - soft, nontender, nondistended, no masses or organomegaly Neurological - alert and oriented Musculoskeletal - no muscular tenderness noted Extremities - no pedal edema Skin - warm and dry Labs Laboratory Tests Test 06/28/18 12:17 06/28/18 12:20 06/28/18 12:25 06/28/18 13:20 O2 Saturation 93 % (92-99) Arterial Blood pH 7.41 (7.35-7.45) Arterial Blood pCO2 at Patient Temp 49 mmHg (35-46) Arterial Blood pO2 at Patient Temp 71 mmHg (65-108) Arterial Blood HCO3 30 mmol/L (21-28) Arterial Blood Base Excess 4 mmol/L (-3-3) FiO2 40% nc White Blood Count 10.2 x10^3/uL (4.0-11.0) Red Blood Count 5.21 x10^6/uL (3.50-5.40) Hemoglobin 15.4 g/dL (12.0-15.5) Hematocrit 48.3 % (36.0-47.0) Mean Corpuscular Volume 93 fL (79-100) Mean Corpuscular Hemoglobin 30 pg (25-35) Mean Corpuscular Hemoglobin Concent 32 g/dL (31-37) Red Cell Distribution Width 13.8 % (11.5-14.5) Platelet Count 251 x10^3/uL (140-400) Neutrophils (%) (Auto) 83 % (31-73) Lymphocytes (%) (Auto) 7 % (24-48) Monocytes (%) (Auto) 9 % (0-9) Eosinophils (%) (Auto) 0 % (0-3) Basophils (%) (Auto) 1 % (0-3) Neutrophils # (Auto) 8.4 x10^3uL (1.8-7.7) Lymphocytes # (Auto) 0.7 x10^3/uL (1.0-4.8) Monocytes # (Auto) 0.9 x10^3/uL (0.0-1.1) Eosinophils # (Auto) 0.0 x10^3/uL (0.0-0.7) Basophils # (Auto) 0.1 x10^3/uL (0.0-0.2) Sodium Level 141 mmol/L (136-145) Potassium Level 3.5 mmol/L (3.5-5.1) Chloride Level 99 mmol/L (98-107) Carbon Dioxide Level 35 mmol/L (21-32) Anion Gap 7 (6-14) Blood Urea Nitrogen 15 mg/dL (7-20) Creatinine 0.9 mg/dL (0.6-1.0) Estimated GFR (Cockcroft-Gault) 76.0 BUN/Creatinine Ratio 17 (6-20) Glucose Level 132 mg/dL (70-99) Calcium Level 9.5 mg/dL (8.5-10.1) Total Bilirubin 1.6 mg/dL (0.2-1.0) Aspartate Amino Transf (AST/SGOT) 43 U/L (15-37) Alanine Aminotransferase (ALT/SGPT) 49 U/L (14-59) Alkaline Phosphatase 79 U/L (46-116) Creatine Kinase 221 U/L (26-192) Creatine Kinase MB (Mass) 2.5 ng/mL (0.0-3.6) Creatine Kinase MB Relative Index 1.1 % (0-4) Troponin I Quantitative 0.047 ng/mL (0.000-0.055) XP-Kia-L-Type Natriuretic Peptide 3891 pg/mL (0-124) Total Protein 8.0 g/dL (6.4-8.2) Albumin 3.6 g/dL (3.4-5.0) Albumin/Globulin Ratio 0.8 (1.0-1.7) Urine Collection Type Void Urine Color Yellow Urine Clarity Clear Urine pH 6.0 Urine Specific Berry 1.010 Urine Protein 100 mg/dL (NEG-TRACE) Urine Glucose (UA) Negative mg/dL (NEG) Urine Ketones (Stick) Negative mg/dL (NEG) Urine Blood Trace (NEG) Urine Nitrite Negative (NEG) Urine Bilirubin Negative (NEG) Urine Urobilinogen Dipstick 0.2 mg/dL (0.2 mg/dL) Urine Leukocyte Esterase Small (NEG) Urine RBC Rare /HPF (0-2) Urine WBC Rare /HPF (0-4) Urine Squamous Epithelial Cells Few /LPF Urine Bacteria Few /HPF (0-FEW) Test 06/29/18 06:25 White Blood Count 11.2 x10^3/uL (4.0-11.0) Red Blood Count 4.56 x10^6/uL (3.50-5.40) Hemoglobin 13.5 g/dL (12.0-15.5) Hematocrit 42.4 % (36.0-47.0) Mean Corpuscular Volume 93 fL (79-100) Mean Corpuscular Hemoglobin 30 pg (25-35) Mean Corpuscular Hemoglobin Concent 32 g/dL (31-37) Red Cell Distribution Width 13.8 % (11.5-14.5) Platelet Count 208 x10^3/uL (140-400) Neutrophils (%) (Auto) 81 % (31-73) Lymphocytes (%) (Auto) 6 % (24-48) Monocytes (%) (Auto) 12 % (0-9) Eosinophils (%) (Auto) 0 % (0-3) Basophils (%) (Auto) 1 % (0-3) Neutrophils # (Auto) 9.2 x10^3uL (1.8-7.7) Lymphocytes # (Auto) 0.7 x10^3/uL (1.0-4.8) Monocytes # (Auto) 1.3 x10^3/uL (0.0-1.1) Eosinophils # (Auto) 0.0 x10^3/uL (0.0-0.7) Basophils # (Auto) 0.1 x10^3/uL (0.0-0.2) Sodium Level 143 mmol/L (136-145) Potassium Level 4.4 mmol/L (3.5-5.1) Chloride Level 103 mmol/L (98-107) Carbon Dioxide Level 37 mmol/L (21-32) Anion Gap 3 (6-14) Blood Urea Nitrogen 24 mg/dL (7-20) Creatinine 0.7 mg/dL (0.6-1.0) Estimated GFR (Cockcroft-Gault) 101.6 BUN/Creatinine Ratio 34 (6-20) Glucose Level 108 mg/dL (70-99) Calcium Level 8.8 mg/dL (8.5-10.1) Total Bilirubin 0.9 mg/dL (0.2-1.0) Aspartate Amino Transf (AST/SGOT) 26 U/L (15-37) Alanine Aminotransferase (ALT/SGPT) 29 U/L (14-59) Alkaline Phosphatase 66 U/L (46-116) Total Protein 6.0 g/dL (6.4-8.2) Albumin 2.3 g/dL (3.4-5.0) Albumin/Globulin Ratio 0.6 (1.0-1.7) Laboratory Tests Test 06/28/18 12:17 06/28/18 12:20 06/28/18 12:25 06/28/18 13:20 O2 Saturation 93 % (92-99) Arterial Blood pH 7.41 (7.35-7.45) Arterial Blood pCO2 at Patient Temp 49 mmHg (35-46) Arterial Blood pO2 at Patient Temp 71 mmHg (65-108) Arterial Blood HCO3 30 mmol/L (21-28) Arterial Blood Base Excess 4 mmol/L (-3-3) FiO2 40% nc White Blood Count 10.2 x10^3/uL (4.0-11.0) Red Blood Count 5.21 x10^6/uL (3.50-5.40) Hemoglobin 15.4 g/dL (12.0-15.5) Hematocrit 48.3 % (36.0-47.0) Mean Corpuscular Volume 93 fL (79-100) Mean Corpuscular Hemoglobin 30 pg (25-35) Mean Corpuscular Hemoglobin Concent 32 g/dL (31-37) Red Cell Distribution Width 13.8 % (11.5-14.5) Platelet Count 251 x10^3/uL (140-400) Neutrophils (%) (Auto) 83 % (31-73) Lymphocytes (%) (Auto) 7 % (24-48) Monocytes (%) (Auto) 9 % (0-9) Eosinophils (%) (Auto) 0 % (0-3) Basophils (%) (Auto) 1 % (0-3) Neutrophils # (Auto) 8.4 x10^3uL (1.8-7.7) Lymphocytes # (Auto) 0.7 x10^3/uL (1.0-4.8) Monocytes # (Auto) 0.9 x10^3/uL (0.0-1.1) Eosinophils # (Auto) 0.0 x10^3/uL (0.0-0.7) Basophils # (Auto) 0.1 x10^3/uL (0.0-0.2) Sodium Level 141 mmol/L (136-145) Potassium Level 3.5 mmol/L (3.5-5.1) Chloride Level 99 mmol/L (98-107) Carbon Dioxide Level 35 mmol/L (21-32) Anion Gap 7 (6-14) Blood Urea Nitrogen 15 mg/dL (7-20) Creatinine 0.9 mg/dL (0.6-1.0) Estimated GFR (Cockcroft-Gault) 76.0 BUN/Creatinine Ratio 17 (6-20) Glucose Level 132 mg/dL (70-99) Calcium Level 9.5 mg/dL (8.5-10.1) Total Bilirubin 1.6 mg/dL (0.2-1.0) Aspartate Amino Transf (AST/SGOT) 43 U/L (15-37) Alanine Aminotransferase (ALT/SGPT) 49 U/L (14-59) Alkaline Phosphatase 79 U/L (46-116) Creatine Kinase 221 U/L (26-192) Creatine Kinase MB (Mass) 2.5 ng/mL (0.0-3.6) Creatine Kinase MB Relative Index 1.1 % (0-4) Troponin I Quantitative 0.047 ng/mL (0.000-0.055) ZV-Qtn-C-Type Natriuretic Peptide 3891 pg/mL (0-124) Total Protein 8.0 g/dL (6.4-8.2) Albumin 3.6 g/dL (3.4-5.0) Albumin/Globulin Ratio 0.8 (1.0-1.7) Urine Collection Type Void Urine Color Yellow Urine Clarity Clear Urine pH 6.0 Urine Specific Berry 1.010 Urine Protein 100 mg/dL (NEG-TRACE) Urine Glucose (UA) Negative mg/dL (NEG) Urine Ketones (Stick) Negative mg/dL (NEG) Urine Blood Trace (NEG) Urine Nitrite Negative (NEG) Urine Bilirubin Negative (NEG) Urine Urobilinogen Dipstick 0.2 mg/dL (0.2 mg/dL) Urine Leukocyte Esterase Small (NEG) Urine RBC Rare /HPF (0-2) Urine WBC Rare /HPF (0-4) Urine Squamous Epithelial Cells Few /LPF Urine Bacteria Few /HPF (0-FEW) Test 06/29/18 06:25 White Blood Count 11.2 x10^3/uL (4.0-11.0) Red Blood Count 4.56 x10^6/uL (3.50-5.40) Hemoglobin 13.5 g/dL (12.0-15.5) Hematocrit 42.4 % (36.0-47.0) Mean Corpuscular Volume 93 fL (79-100) Mean Corpuscular Hemoglobin 30 pg (25-35) Mean Corpuscular Hemoglobin Concent 32 g/dL (31-37) Red Cell Distribution Width 13.8 % (11.5-14.5) Platelet Count 208 x10^3/uL (140-400) Neutrophils (%) (Auto) 81 % (31-73) Lymphocytes (%) (Auto) 6 % (24-48) Monocytes (%) (Auto) 12 % (0-9) Eosinophils (%) (Auto) 0 % (0-3) Basophils (%) (Auto) 1 % (0-3) Neutrophils # (Auto) 9.2 x10^3uL (1.8-7.7) Lymphocytes # (Auto) 0.7 x10^3/uL (1.0-4.8) Monocytes # (Auto) 1.3 x10^3/uL (0.0-1.1) Eosinophils # (Auto) 0.0 x10^3/uL (0.0-0.7) Basophils # (Auto) 0.1 x10^3/uL (0.0-0.2) Sodium Level 143 mmol/L (136-145) Potassium Level 4.4 mmol/L (3.5-5.1) Chloride Level 103 mmol/L (98-107) Carbon Dioxide Level 37 mmol/L (21-32) Anion Gap 3 (6-14) Blood Urea Nitrogen 24 mg/dL (7-20) Creatinine 0.7 mg/dL (0.6-1.0) Estimated GFR (Cockcroft-Gault) 101.6 BUN/Creatinine Ratio 34 (6-20) Glucose Level 108 mg/dL (70-99) Calcium Level 8.8 mg/dL (8.5-10.1) Total Bilirubin 0.9 mg/dL (0.2-1.0) Aspartate Amino Transf (AST/SGOT) 26 U/L (15-37) Alanine Aminotransferase (ALT/SGPT) 29 U/L (14-59) Alkaline Phosphatase 66 U/L (46-116) Total Protein 6.0 g/dL (6.4-8.2) Albumin 2.3 g/dL (3.4-5.0) Albumin/Globulin Ratio 0.6 (1.0-1.7) Meds Current Medications Acetaminophen (Tylenol) 650 mg PRN Q6HRS PRN PO MILD PAIN / TEMP; Start at 17:45 Albuterol/ Ipratropium (Duoneb) 3 ml 1X ONCE NEB Last administered on at 12:15; Start 06/28/18 at 12:15; Stop 06/28/18 at 12:16; Status DC Albuterol/ Ipratropium (Duoneb) 3 ml RTQID NEB Last administered on 06/29/18at 07:49; Start 06/28/18 at 16:00; Stop 06/29/18 at 15:59 Enoxaparin Sodium (Lovenox 40mg Syringe) 40 mg Q24H SQ Last administered on at 18:30; Start 06/28/18 at 18:00 Famotidine (Pepcid) 20 mg QHS PO Last administered on 06/28/18at 20:26; Start at 21:00 Furosemide (Lasix) 40 mg 1X ONCE IVP Last administered on 06/28/18at 12:50; Start 06/28/18 at 12:15; Stop 06/28/18 at 12:16; Status DC Hydrochlorothiazide (Microzide) 12.5 mg DAILY PO Last administered on 09:26; Start 06/29/18 at 09:00 Losartan Potassium (Cozaar) 25 mg DAILY PO Last administered on 06/29/18 09:25 ; Start 06/29/18 at 09:00 Methylprednisolone Sodium Succinate (SOLU-Medrol 125MG VIAL) 125 mg 1X ONCE IV Last administered on 06/28/18at 12:50; Start 06/28/18 at 12:15; Stop 06/28/18 at 12:16; Status DC Metoprolol Tartrate (Lopressor) 25 mg BID PO Last administered on 06/29/18 09: 26; Start 06/28/18 at 21:00 Ondansetron HCl (Zofran) 4 mg PRN Q8HRS PRN IV NAUSEA/VOMITING; Start 06/28/18 at 14:00; Stop 06/29/18 at 13:59 Potassium Chloride (Klor-Con) 20 meq BIDAFTMEAL PO Last administered on at 09:26; Start 06/28/18 at 19:00 Simvastatin (Zocor) 40 mg QHS PO Last administered on 06/28/18at 20:26; Start at 21:00 Tramadol HCl (Ultram) 50 mg PRN Q6HRS PRN PO PAIN; Start 06/28/18 at 17:45 Assessment Assessment 1. Acute on chronic hypoxic respiratory failure with hypercapnia. This may be likely because the patient has not been able to afford her oxygen at home and CPAP at home. 2. Acute exacerbation of chronic obstructive pulmonary disease. The patient was given IV Solu-Medrol earlier. We will continue breathing treatment. 3. Acute congestive heart failure. 4. Coronary artery disease. 5. Elevated troponin, may be type 2 demand ischemia. 6. Hypertensive crisis. 7. Rheumatoid arthritis, on Humira. 8. Coronary artery disease. 9. Osteoarthritis. 10. Obstructive sleep apnea. 11. History of cardiac pacemaker. 12. 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 PLAN: We will admit to the hospital. We will enlist the help of family welfare social work professor to see if we can get her CPAP and oxygen restored at home. Consult Dr. Beltre for pulmonary evaluation and management, consult Dr. Mcgee for cardiology evaluation and management. I will also replace potassium for hypokalemia. For details, please refer to the orders. Consult family welfare social work professor. If patient is stable and improving we'll discharge home with CPAP and oxygen tomorrow. Currently she does not have any oxygen or CPAP at home. Plan Plan For more details regarding further plans, please refer to the orders. CAROLINE EATON MD Jun 29, 2018 10:15
[2018-06-29 11:00] VITALS: BP 101/66
[2018-06-29] MEDS: ACETAMINOPHEN 325 MG TABLET. PO PRN (12:50)
--- NOTE | 2018-06-29 14:48 | PDOC ---
PULMONARY PROGRESS NOTES Vitals Vital Signs Date Time Temp Pulse Resp B/P (MAP) Pulse Ox O2 Delivery O2 Flow Rate FiO2 06/29/18 11:00 98.8 85 18 101/66 (78) 95 Nasal Cannula 5.0 98.8 Labs Laboratory Tests Test 06/28/18 12:17 06/28/18 12:20 06/28/18 12:25 06/28/18 13:20 O2 Saturation 93 % (92-99) Arterial Blood pH 7.41 (7.35-7.45) Arterial Blood pCO2 at Patient Temp 49 mmHg (35-46) Arterial Blood pO2 at Patient Temp 71 mmHg (65-108) Arterial Blood HCO3 30 mmol/L (21-28) Arterial Blood Base Excess 4 mmol/L (-3-3) FiO2 40% nc White Blood Count 10.2 x10^3/uL (4.0-11.0) Red Blood Count 5.21 x10^6/uL (3.50-5.40) Hemoglobin 15.4 g/dL (12.0-15.5) Hematocrit 48.3 % (36.0-47.0) Mean Corpuscular Volume 93 fL (79-100) Mean Corpuscular Hemoglobin 30 pg (25-35) Mean Corpuscular Hemoglobin Concent 32 g/dL (31-37) Red Cell Distribution Width 13.8 % (11.5-14.5) Platelet Count 251 x10^3/uL (140-400) Neutrophils (%) (Auto) 83 % (31-73) Lymphocytes (%) (Auto) 7 % (24-48) Monocytes (%) (Auto) 9 % (0-9) Eosinophils (%) (Auto) 0 % (0-3) Basophils (%) (Auto) 1 % (0-3) Neutrophils # (Auto) 8.4 x10^3uL (1.8-7.7) Lymphocytes # (Auto) 0.7 x10^3/uL (1.0-4.8) Monocytes # (Auto) 0.9 x10^3/uL (0.0-1.1) Eosinophils # (Auto) 0.0 x10^3/uL (0.0-0.7) Basophils # (Auto) 0.1 x10^3/uL (0.0-0.2) Sodium Level 141 mmol/L (136-145) Potassium Level 3.5 mmol/L (3.5-5.1) Chloride Level 99 mmol/L (98-107) Carbon Dioxide Level 35 mmol/L (21-32) Anion Gap 7 (6-14) Blood Urea Nitrogen 15 mg/dL (7-20) Creatinine 0.9 mg/dL (0.6-1.0) Estimated GFR (Cockcroft-Gault) 76.0 BUN/Creatinine Ratio 17 (6-20) Glucose Level 132 mg/dL (70-99) Calcium Level 9.5 mg/dL (8.5-10.1) Total Bilirubin 1.6 mg/dL (0.2-1.0) Aspartate Amino Transf (AST/SGOT) 43 U/L (15-37) Alanine Aminotransferase (ALT/SGPT) 49 U/L (14-59) Alkaline Phosphatase 79 U/L (46-116) Creatine Kinase 221 U/L (26-192) Creatine Kinase MB (Mass) 2.5 ng/mL (0.0-3.6) Creatine Kinase MB Relative Index 1.1 % (0-4) Troponin I Quantitative 0.047 ng/mL (0.000-0.055) CK-Eqt-V-Type Natriuretic Peptide 3891 pg/mL (0-124) Total Protein 8.0 g/dL (6.4-8.2) Albumin 3.6 g/dL (3.4-5.0) Albumin/Globulin Ratio 0.8 (1.0-1.7) Urine Collection Type Void Urine Color Yellow Urine Clarity Clear Urine pH 6.0 Urine Specific Check 1.010 Urine Protein 100 mg/dL (NEG-TRACE) Urine Glucose (UA) Negative mg/dL (NEG) Urine Ketones (Stick) Negative mg/dL (NEG) Urine Blood Trace (NEG) Urine Nitrite Negative (NEG) Urine Bilirubin Negative (NEG) Urine Urobilinogen Dipstick 0.2 mg/dL (0.2 mg/dL) Urine Leukocyte Esterase Small (NEG) Urine RBC Rare /HPF (0-2) Urine WBC Rare /HPF (0-4) Urine Squamous Epithelial Cells Few /LPF Urine Bacteria Few /HPF (0-FEW) Test 06/29/18 06:25 White Blood Count 11.2 x10^3/uL (4.0-11.0) Red Blood Count 4.56 x10^6/uL (3.50-5.40) Hemoglobin 13.5 g/dL (12.0-15.5) Hematocrit 42.4 % (36.0-47.0) Mean Corpuscular Volume 93 fL (79-100) Mean Corpuscular Hemoglobin 30 pg (25-35) Mean Corpuscular Hemoglobin Concent 32 g/dL (31-37) Red Cell Distribution Width 13.8 % (11.5-14.5) Platelet Count 208 x10^3/uL (140-400) Neutrophils (%) (Auto) 81 % (31-73) Lymphocytes (%) (Auto) 6 % (24-48) Monocytes (%) (Auto) 12 % (0-9) Eosinophils (%) (Auto) 0 % (0-3) Basophils (%) (Auto) 1 % (0-3) Neutrophils # (Auto) 9.2 x10^3uL (1.8-7.7) Lymphocytes # (Auto) 0.7 x10^3/uL (1.0-4.8) Monocytes # (Auto) 1.3 x10^3/uL (0.0-1.1) Eosinophils # (Auto) 0.0 x10^3/uL (0.0-0.7) Basophils # (Auto) 0.1 x10^3/uL (0.0-0.2) Sodium Level 143 mmol/L (136-145) Potassium Level 4.4 mmol/L (3.5-5.1) Chloride Level 103 mmol/L (98-107) Carbon Dioxide Level 37 mmol/L (21-32) Anion Gap 3 (6-14) Blood Urea Nitrogen 24 mg/dL (7-20) Creatinine 0.7 mg/dL (0.6-1.0) Estimated GFR (Cockcroft-Gault) 101.6 BUN/Creatinine Ratio 34 (6-20) Glucose Level 108 mg/dL (70-99) Calcium Level 8.8 mg/dL (8.5-10.1) Total Bilirubin 0.9 mg/dL (0.2-1.0) Aspartate Amino Transf (AST/SGOT) 26 U/L (15-37) Alanine Aminotransferase (ALT/SGPT) 29 U/L (14-59) Alkaline Phosphatase 66 U/L (46-116) Total Protein 6.0 g/dL (6.4-8.2) Albumin 2.3 g/dL (3.4-5.0) Albumin/Globulin Ratio 0.6 (1.0-1.7) Laboratory Tests Test 06/29/18 06:25 White Blood Count 11.2 x10^3/uL (4.0-11.0) Red Blood Count 4.56 x10^6/uL (3.50-5.40) Hemoglobin 13.5 g/dL (12.0-15.5) Hematocrit 42.4 % (36.0-47.0) Mean Corpuscular Volume 93 fL (79-100) Mean Corpuscular Hemoglobin 30 pg (25-35) Mean Corpuscular Hemoglobin Concent 32 g/dL (31-37) Red Cell Distribution Width 13.8 % (11.5-14.5) Platelet Count 208 x10^3/uL (140-400) Neutrophils (%) (Auto) 81 % (31-73) Lymphocytes (%) (Auto) 6 % (24-48) Monocytes (%) (Auto) 12 % (0-9) Eosinophils (%) (Auto) 0 % (0-3) Basophils (%) (Auto) 1 % (0-3) Neutrophils # (Auto) 9.2 x10^3uL (1.8-7.7) Lymphocytes # (Auto) 0.7 x10^3/uL (1.0-4.8) Monocytes # (Auto) 1.3 x10^3/uL (0.0-1.1) Eosinophils # (Auto) 0.0 x10^3/uL (0.0-0.7) Basophils # (Auto) 0.1 x10^3/uL (0.0-0.2) Sodium Level 143 mmol/L (136-145) Potassium Level 4.4 mmol/L (3.5-5.1) Chloride Level 103 mmol/L (98-107) Carbon Dioxide Level 37 mmol/L (21-32) Anion Gap 3 (6-14) Blood Urea Nitrogen 24 mg/dL (7-20) Creatinine 0.7 mg/dL (0.6-1.0) Estimated GFR (Cockcroft-Gault) 101.6 BUN/Creatinine Ratio 34 (6-20) Glucose Level 108 mg/dL (70-99) Calcium Level 8.8 mg/dL (8.5-10.1) Total Bilirubin 0.9 mg/dL (0.2-1.0) Aspartate Amino Transf (AST/SGOT) 26 U/L (15-37) Alanine Aminotransferase (ALT/SGPT) 29 U/L (14-59) Alkaline Phosphatase 66 U/L (46-116) Total Protein 6.0 g/dL (6.4-8.2) Albumin 2.3 g/dL (3.4-5.0) Albumin/Globulin Ratio 0.6 (1.0-1.7) Medications Active Scripts Medications Dose Route/Sig Max Daily Dose Days Date Category Metoprolol Tartrate 25 Mg Tablet 25 Mg PO BID 06/28/18 Reported Tramadol Hcl 50 Mg Tablet 50 Mg PO PRN Q6HRS PRN 06/28/18 Reported Humira (Adalimumab) 40 Mg/0.8 Ml [email or web address] 40 Mg SQ Q2WKS 02/20/15 Reported Hydrochlorothiazide Tablet (Hydrochlorothiazide) 12.5 Mg Tablet 12.5 Mg PO DAILY 02/19/15 Reported Simvastatin 40 Mg Tablet 40 Mg PO HS 02/19/15 Reported Ultram (Tramadol Hcl) 50 Mg Tablet 50 Mg PO Q6H PRN 02/19/15 Reported Losartan Potassium (Losartan Potassium) 25 Mg Tablet 25 Mg PO DAILY 10/30/13 Reported Impression . FULL NOTE DICTATED SEE ORDERS THANKS AGREE WITH CURRENT RX DIANA HOROWITZ MD Jun 29, 2018 14:48
[2018-06-29 15:00] VITALS: BP 92/55
--- NOTE | 2018-06-29 16:45 | PDOC2 ---
CARDIAC CONSULT DATE OF CONSULT Date of Consult DATE: 06/29/18 TIME: 1200 REASON FOR CONSULT Reason for Consult: CHF REFERRING PHYSICIAN Referring Physician: Ankit SOURCE Source: Chart review, Patient HISTORY OF PRESENT ILLNESS HISTORY OF PRESENT ILLNESS This is 63 yo female admitted for complains of SOA. Reports that she has been having QUINN. No complains of chest pain or palpitations. No dizziness or passing out. She has lost about 80 pounds in the last year. Reports no nausea or vomiting. No wheezing no PND or orthopnea. She does not use oxygen and has not been having any cough, no fever or chills. Reports that her distance with ambulation has decreased gradually. Verbalized compliance with her medications. She is no longer on lasix but on HCTZ and no longer on methotrexate but still on Humira. She has never been told of any pulmonary fibrosis. Presently she is needing 5 LPM of oxygen no complains of leg edema. PAST MEDICAL HISTORY Cardiovascular: CAD (?), HTN, Hyperlipidemia, Other (CHB/SVT) Pulmonary: COPD CENTRAL NERVOUS SYSTEM: Carpal Tunnel Syndrome Musculoskeletal: Osteoarthritis Rheumatologic: Rheumatoid arthritis ENT: No pertinent hx Renal/: No pertinent hx Endocrine: Diabetes (2) PAST SURGICAL HISTORY Past Surgical History: Pacemaker (medtronic), Hysterectomy, Other FAMILY HISTORY Family History: Heart Disease SOCIAL HISTORY Smoke: Quit ALCOHOL: none Drugs: None Lives: with Family CURRENT MEDICATIONS CURRENT MEDICATIONS Current Medications Medications (Trade) Dose Ordered Sig/Riccardo Route PRN Reason Start Time Stop Time Status Last Admin Dose Admin Losartan Potassium (Cozaar) 25 mg DAILY PO 06/29/18 09:00 06/29/18 09:25 Metoprolol Tartrate (Lopressor) 25 mg BID PO 06/28/18 21:00 06/29/18 09:26 Hydrochlorothiazide (Microzide) 12.5 mg DAILY PO 06/29/18 09:00 06/29/18 09:26 Simvastatin (Zocor) 40 mg QHS PO 06/28/18 21:00 06/28/18 20:26 Acetaminophen (Tylenol) 650 mg PRN Q6HRS PRN PO MILD PAIN / TEMP 06/28/18 17:45 06/29/18 12:50 Famotidine (Pepcid) 20 mg QHS PO 06/28/18 21:00 06/28/18 20:26 Enoxaparin Sodium (Lovenox 40mg Syringe) 40 mg Q24H SQ 06/28/18 18:00 06/28/18 18:30 Potassium Chloride (Klor-Con) 20 meq BIDAFTMEAL PO 06/28/18 19:00 06/29/18 09:26 ALLERGIES ALLERGIES: Coded Allergies: Penicillins (Verified Allergy, Intermediate, RASH AND ITCHING, 02/19/15) YADI Inhibitors (Verified Adverse Reaction, Intermediate, COUGH, 02/19/15) ROS Review of System 14 point ROS evaluated with pertinent positives noted per HPI PHYSICAL EXAM General: Alert, Oriented X3, Cooperative, No acute distress HEENT: Atraumatic, Mucous membr. moist/pink VITALS VITALS Vital Signs Date Time Temp Pulse Resp B/P (MAP) Pulse Ox O2 Delivery O2 Flow Rate FiO2 06/29/18 15:07 94 Nasal Cannula 5.0 06/29/18 15:00 97.4 81 18 92/55 (67) 97.4 LABS Lab: Laboratory Tests Test 06/29/18 06:25 White Blood Count 11.2 x10^3/uL (4.0-11.0) Red Blood Count 4.56 x10^6/uL (3.50-5.40) Hemoglobin 13.5 g/dL (12.0-15.5) Hematocrit 42.4 % (36.0-47.0) Mean Corpuscular Volume 93 fL (79-100) Mean Corpuscular Hemoglobin 30 pg (25-35) Mean Corpuscular Hemoglobin Concent 32 g/dL (31-37) Red Cell Distribution Width 13.8 % (11.5-14.5) Platelet Count 208 x10^3/uL (140-400) Neutrophils (%) (Auto) 81 % (31-73) Lymphocytes (%) (Auto) 6 % (24-48) Monocytes (%) (Auto) 12 % (0-9) Eosinophils (%) (Auto) 0 % (0-3) Basophils (%) (Auto) 1 % (0-3) Neutrophils # (Auto) 9.2 x10^3uL (1.8-7.7) Lymphocytes # (Auto) 0.7 x10^3/uL (1.0-4.8) Monocytes # (Auto) 1.3 x10^3/uL (0.0-1.1) Eosinophils # (Auto) 0.0 x10^3/uL (0.0-0.7) Basophils # (Auto) 0.1 x10^3/uL (0.0-0.2) Sodium Level 143 mmol/L (136-145) Potassium Level 4.4 mmol/L (3.5-5.1) Chloride Level 103 mmol/L (98-107) Carbon Dioxide Level 37 mmol/L (21-32) Anion Gap 3 (6-14) Blood Urea Nitrogen 24 mg/dL (7-20) Creatinine 0.7 mg/dL (0.6-1.0) Estimated GFR (Cockcroft-Gault) 101.6 BUN/Creatinine Ratio 34 (6-20) Glucose Level 108 mg/dL (70-99) Calcium Level 8.8 mg/dL (8.5-10.1) Total Bilirubin 0.9 mg/dL (0.2-1.0) Aspartate Amino Transf (AST/SGOT) 26 U/L (15-37) Alanine Aminotransferase (ALT/SGPT) 29 U/L (14-59) Alkaline Phosphatase 66 U/L (46-116) Total Protein 6.0 g/dL (6.4-8.2) Albumin 2.3 g/dL (3.4-5.0) Albumin/Globulin Ratio 0.6 (1.0-1.7) ASSESSMENT/PLAN ASSESSMENT/PLAN 1. Dyspnea: underlying COPD. Pulmonary fibrosis? 2. Suspect Chronic diastolic CHF: clinically none acute. 3. CAD: unclear for previous workup. EKG paced rhythm 4. Wt loss: claimed 80 pound wt loss in 1 yr. defer to PCP 5. HTN: labile initially but better 6. 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 Hx of RA with prior methotrexate use and now on humira. Recommendation 1. TTE. May need CT chest, defer to pulmonary 2. If no prior ischemic workup then may consider outpt vs inpt pending TTE report. Troponin and lipid panel. 3. Will interrogate device tomorrow. 4. Continue current BP regimen. DELROY NOVAK APRN Jun 29, 2018 16:45
[2018-06-29] MEDS: ENOXAPARIN 40 MG/0.4 ML SYRINGE. SQ SCH (16:59)
[2018-06-29 19:00] VITALS: BP 124/76
[2018-06-29] MEDS ORDERED: ENOXAPARIN 40 MG/0.4 ML SYRINGE. SQ ONE (19:45)
[2018-06-29] MEDS ORDERED: ENOXAPARIN 30 MG/0.3 ML SYRINGE. SQ ONE (19:45)
[2018-06-29] MEDS: FAMOTIDINE 20 MG TABLET. PO SCH (20:17)
[2018-06-29] MEDS: SIMVASTATIN 40 MG TABLET. PO SCH (20:18)
[2018-06-29 23:02] VITALS: BP 124/80
--- NOTE | 2018-06-30 00:15 | CONS ---
DATE OF CONSULTATION: 06/29/2018 ATTENDING PHYSICIAN: Adi Davidson M.D. REASON FOR CONSULTATION: The patient is seen in Pulmonary consultation at the request of Dr. Davidson for hypoxemia and shortness of air. HISTORY OF PRESENT ILLNESS: The patient is a 63-year-old female who quit tobacco 20 years ago, normally does not wear oxygen at home, uses Symbicort and ProAir. She had increasing shortness of breath over the last several days prior to admission. She became short of breath and was presented to the Emergency Room. She was found to have O2 saturation on room air of 75%. She was placed on oxygen supplementation and was admitted. I was asked to see her in consultation. She had a chest x-ray, which was essentially normal. She is currently being treated for acute exacerbation of COPD. She had an arterial blood gas on 40%, which revealed a pH of 7.41, PaCO2 of 49 and PaO2 of 71. White count was normal. Hemoglobin and hematocrit were noted. Electrolytes were noted. Troponin was not elevated. PAST MEDICAL HISTORY: Remarkable for COPD, rheumatoid arthritis, coronary artery disease and hypertension. PAST SURGICAL HISTORY: Previous wrist fracture repair and pacemaker. She had right lung resection in 1996, specifics are unknown. She is status post total hysterectomy. She has also had some partial lung resection for fungal process or possibly histoplasmosis. FAMILY HISTORY: Parkinsonism. Mother had hypertension and coronary artery disease. ALLERGIES: LISTED TO LISINOPRIL AND PENICILLIN, CAUSING A RASH. REVIEW OF SYSTEMS: CONSTITUTIONAL: No fever or chills. EYES: No change in visual acuity. HENT: No nasal congestion or sore throat. PULMONARY: As indicated above. CARDIOVASCULAR: No chest pain. No pressure. GASTROINTESTINAL: No nausea, vomiting or diarrhea. GENITOURINARY: No dysuria or frequency. MUSCULOSKELETAL: No localized muscle aches or joint pains. SKIN: No new skin rashes. NEUROLOGIC: No headaches, diplopia or blurred vision. PHYSICAL EXAMINATION: GENERAL: On exam, the patient had improved since yesterday. O2 saturation currently on 5 liters is 95%. HEENT: Eyes, the sclerae were nonicteric. NECK: Jugular venous distention was not elevated. No lymphadenopathy. CHEST: Full expansion. LUNGS: Coarse breath sounds, with expiratory wheeze. CARDIOVASCULAR EXAMINATION: Regular rate and rhythm with S1, S2. No S3. ABDOMEN: Soft, nontender and nondistended. EXTREMITIES: No clubbing, cyanosis or edema. NEUROLOGIC: The patient was awake, alert, following commands. A detailed neuro exam not performed. LABORATORY DATA: Labs as indicated above. Chest x-ray as indicated above. IMPRESSION: 1. Acute hypoxemic respiratory failure secondary to acute exacerbation of chronic obstructive pulmonary disease. 2. Acute exacerbation of chronic obstructive pulmonary disease. 3. Kxaqb-gg-ykzqiju diastolic heart failure. 4. Coronary artery disease. 5. Elevated troponin, suspect type 2 demand ischemia. 6. Hypertensive crisis. 7. 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 8. Obstructive sleep apnea. 9. 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 PLAN: 1. I agree with current medical management. 2. Continue home CPAP. 3. Follow Cardiology input. 4. DVT and GI prophylaxis. 5. Follow up in the outpatient department with either myself or Dr. Clark. Dr. Davidson, I do appreciate the privilege in sharing in the patient's care. DIANA HOROWITZ MD DR: CELIO/sanchez JOB#: [id number] / [id number]
[2018-06-30 03:19] VITALS: BP 129/84
[2018-06-30 04:26] LABS: ALBUMIN 2.4 g/dL (3.4-5.0); ALBUMIN/GLOBULIN RATIO 0.7 (1.0-1.7); CALCIUM 8.4 mg/dL (8.5-10.1); CHOLESTEROL/HDL RATIO 3.1; CREATININE 0.8 mg/dL (0.6-1.0); GFR 87.1; POTASSIUM 4.5 mmol/L (3.5-5.1); TOTAL BILIRUBIN 0.9 mg/dL (0.2-1.0)
[2018-06-30 07:00] VITALS: BP 116/74
--- NOTE | 2018-06-30 08:59 | PDOC ---
PULMONARY PROGRESS NOTES Vitals Vital Signs Date Time Temp Pulse Resp B/P (MAP) Pulse Ox O2 Delivery O2 Flow Rate FiO2 06/30/18 07:00 98.9 100 18 116/74 (88) 94 Nasal Cannula 5.0 98.9 Labs Laboratory Tests Test 06/28/18 12:17 06/28/18 12:20 06/28/18 12:25 06/28/18 13:20 O2 Saturation 93 % (92-99) Arterial Blood pH 7.41 (7.35-7.45) Arterial Blood pCO2 at Patient Temp 49 mmHg (35-46) Arterial Blood pO2 at Patient Temp 71 mmHg (65-108) Arterial Blood HCO3 30 mmol/L (21-28) Arterial Blood Base Excess 4 mmol/L (-3-3) FiO2 40% nc White Blood Count 10.2 x10^3/uL (4.0-11.0) Red Blood Count 5.21 x10^6/uL (3.50-5.40) Hemoglobin 15.4 g/dL (12.0-15.5) Hematocrit 48.3 % (36.0-47.0) Mean Corpuscular Volume 93 fL (79-100) Mean Corpuscular Hemoglobin 30 pg (25-35) Mean Corpuscular Hemoglobin Concent 32 g/dL (31-37) Red Cell Distribution Width 13.8 % (11.5-14.5) Platelet Count 251 x10^3/uL (140-400) Neutrophils (%) (Auto) 83 % (31-73) Lymphocytes (%) (Auto) 7 % (24-48) Monocytes (%) (Auto) 9 % (0-9) Eosinophils (%) (Auto) 0 % (0-3) Basophils (%) (Auto) 1 % (0-3) Neutrophils # (Auto) 8.4 x10^3uL (1.8-7.7) Lymphocytes # (Auto) 0.7 x10^3/uL (1.0-4.8) Monocytes # (Auto) 0.9 x10^3/uL (0.0-1.1) Eosinophils # (Auto) 0.0 x10^3/uL (0.0-0.7) Basophils # (Auto) 0.1 x10^3/uL (0.0-0.2) Sodium Level 141 mmol/L (136-145) Potassium Level 3.5 mmol/L (3.5-5.1) Chloride Level 99 mmol/L (98-107) Carbon Dioxide Level 35 mmol/L (21-32) Anion Gap 7 (6-14) Blood Urea Nitrogen 15 mg/dL (7-20) Creatinine 0.9 mg/dL (0.6-1.0) Estimated GFR (Cockcroft-Gault) 76.0 BUN/Creatinine Ratio 17 (6-20) Glucose Level 132 mg/dL (70-99) Calcium Level 9.5 mg/dL (8.5-10.1) Total Bilirubin 1.6 mg/dL (0.2-1.0) Aspartate Amino Transf (AST/SGOT) 43 U/L (15-37) Alanine Aminotransferase (ALT/SGPT) 49 U/L (14-59) Alkaline Phosphatase 79 U/L (46-116) Creatine Kinase 221 U/L (26-192) Creatine Kinase MB (Mass) 2.5 ng/mL (0.0-3.6) Creatine Kinase MB Relative Index 1.1 % (0-4) Troponin I Quantitative 0.047 ng/mL (0.000-0.055) LX-Syx-H-Type Natriuretic Peptide 3891 pg/mL (0-124) Total Protein 8.0 g/dL (6.4-8.2) Albumin 3.6 g/dL (3.4-5.0) Albumin/Globulin Ratio 0.8 (1.0-1.7) Urine Collection Type Void Urine Color Yellow Urine Clarity Clear Urine pH 6.0 Urine Specific [place] 1.010 Urine Protein 100 mg/dL (NEG-TRACE) Urine Glucose (UA) Negative mg/dL (NEG) Urine Ketones (Stick) Negative mg/dL (NEG) Urine Blood Trace (NEG) Urine Nitrite Negative (NEG) Urine Bilirubin Negative (NEG) Urine Urobilinogen Dipstick 0.2 mg/dL (0.2 mg/dL) Urine Leukocyte Esterase Small (NEG) Urine RBC Rare /HPF (0-2) Urine WBC Rare /HPF (0-4) Urine Squamous Epithelial Cells Few /LPF Urine Bacteria Few /HPF (0-FEW) Test 06/29/18 06:25 06/29/18 18:45 06/30/18 03:20 White Blood Count 11.2 x10^3/uL (4.0-11.0) Red Blood Count 4.56 x10^6/uL (3.50-5.40) Hemoglobin 13.5 g/dL (12.0-15.5) Hematocrit 42.4 % (36.0-47.0) Mean Corpuscular Volume 93 fL (79-100) Mean Corpuscular Hemoglobin 30 pg (25-35) Mean Corpuscular Hemoglobin Concent 32 g/dL (31-37) Red Cell Distribution Width 13.8 % (11.5-14.5) Platelet Count 208 x10^3/uL (140-400) Neutrophils (%) (Auto) 81 % (31-73) Lymphocytes (%) (Auto) 6 % (24-48) Monocytes (%) (Auto) 12 % (0-9) Eosinophils (%) (Auto) 0 % (0-3) Basophils (%) (Auto) 1 % (0-3) Neutrophils # (Auto) 9.2 x10^3uL (1.8-7.7) Lymphocytes # (Auto) 0.7 x10^3/uL (1.0-4.8) Monocytes # (Auto) 1.3 x10^3/uL (0.0-1.1) Eosinophils # (Auto) 0.0 x10^3/uL (0.0-0.7) Basophils # (Auto) 0.1 x10^3/uL (0.0-0.2) Sodium Level 143 mmol/L (136-145) 143 mmol/L (136-145) Potassium Level 4.4 mmol/L (3.5-5.1) 4.5 mmol/L (3.5-5.1) Chloride Level 103 mmol/L (98-107) 103 mmol/L (98-107) Carbon Dioxide Level 37 mmol/L (21-32) 37 mmol/L (21-32) Anion Gap 3 (6-14) 3 (6-14) Blood Urea Nitrogen 24 mg/dL (7-20) 15 mg/dL (7-20) Creatinine 0.7 mg/dL (0.6-1.0) 0.8 mg/dL (0.6-1.0) Estimated GFR (Cockcroft-Gault) 101.6 87.1 BUN/Creatinine Ratio 34 (6-20) 19 (6-20) Glucose Level 108 mg/dL (70-99) 100 mg/dL (70-99) Calcium Level 8.8 mg/dL (8.5-10.1) 8.4 mg/dL (8.5-10.1) Total Bilirubin 0.9 mg/dL (0.2-1.0) 0.9 mg/dL (0.2-1.0) Aspartate Amino Transf (AST/SGOT) 26 U/L (15-37) 22 U/L (15-37) Alanine Aminotransferase (ALT/SGPT) 29 U/L (14-59) 30 U/L (14-59) Alkaline Phosphatase 66 U/L (46-116) 54 U/L (46-116) Troponin I Quantitative 0.365 ng/mL (0.000-0.055) 0.363 ng/mL (0.000-0.055) Total Protein 6.0 g/dL (6.4-8.2) 6.0 g/dL (6.4-8.2) Albumin 2.3 g/dL (3.4-5.0) 2.4 g/dL (3.4-5.0) Albumin/Globulin Ratio 0.6 (1.0-1.7) 0.7 (1.0-1.7) Triglycerides Level 43 mg/dL (0-150) Cholesterol Level 99 mg/dL (0-200) LDL Cholesterol, Calculated 58 mg/dL (0-100) VLDL Cholesterol, Calculated 9 mg/dL (0-40) Non-HDL Cholesterol Calculated 67 mg/dL (0-129) HDL Cholesterol 32 mg/dL (40-60) Cholesterol/HDL Ratio 3.1 Laboratory Tests Test 06/29/18 18:45 06/30/18 03:20 Troponin I Quantitative 0.363 ng/mL (0.000-0.055) Sodium Level 143 mmol/L (136-145) Potassium Level 4.5 mmol/L (3.5-5.1) Chloride Level 103 mmol/L (98-107) Carbon Dioxide Level 37 mmol/L (21-32) Anion Gap 3 (6-14) Blood Urea Nitrogen 15 mg/dL (7-20) Creatinine 0.8 mg/dL (0.6-1.0) Estimated GFR (Cockcroft-Gault) 87.1 BUN/Creatinine Ratio 19 (6-20) Glucose Level 100 mg/dL (70-99) Calcium Level 8.4 mg/dL (8.5-10.1) Total Bilirubin 0.9 mg/dL (0.2-1.0) Aspartate Amino Transf (AST/SGOT) 22 U/L (15-37) Alanine Aminotransferase (ALT/SGPT) 30 U/L (14-59) Alkaline Phosphatase 54 U/L (46-116) Total Protein 6.0 g/dL (6.4-8.2) Albumin 2.4 g/dL (3.4-5.0) Albumin/Globulin Ratio 0.7 (1.0-1.7) Triglycerides Level 43 mg/dL (0-150) Cholesterol Level 99 mg/dL (0-200) LDL Cholesterol, Calculated 58 mg/dL (0-100) VLDL Cholesterol, Calculated 9 mg/dL (0-40) Non-HDL Cholesterol Calculated 67 mg/dL (0-129) HDL Cholesterol 32 mg/dL (40-60) Cholesterol/HDL Ratio 3.1 Medications Active Scripts Medications Dose Route/Sig Max Daily Dose Days Date Category Metoprolol Tartrate 25 Mg Tablet 25 Mg PO BID 06/28/18 Reported Tramadol Hcl 50 Mg Tablet 50 Mg PO PRN Q6HRS PRN 06/28/18 Reported Humira (Adalimumab) 40 Mg/0.8 Ml Pen.ij.kit 40 Mg SQ Q2WKS 02/20/15 Reported Hydrochlorothiazide Tablet (Hydrochlorothiazide) 12.5 Mg Tablet 12.5 Mg PO DAILY 02/19/15 Reported Simvastatin 40 Mg Tablet 40 Mg PO HS 02/19/15 Reported Ultram (Tramadol Hcl) 50 Mg Tablet 50 Mg PO Q6H PRN 02/19/15 Reported Losartan Potassium (Losartan Potassium) 25 Mg Tablet 25 Mg PO DAILY 10/30/13 Reported Impression . IMPRESSION: 1. Acute hypoxemic respiratory failure secondary to acute exacerbation of chronic obstructive pulmonary disease. 2. Acute exacerbation of chronic obstructive pulmonary disease. 3. Oynld-sa-umhmrge diastolic heart failure. 4. Coronary artery disease. 5. Elevated troponin, suspect type 2 demand ischemia. 6. Hypertensive crisis. 7. 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 8. Obstructive sleep apnea. 9. 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 FEVI LESS THAN ONE LITER Plan . SPOKE WITH DR EATON AND CARD CARD WORK UP TODAY IF D/C FOLLOW UP IN OFFICE 1. I agree with current medical management. 2. Continue home CPAP. 3. Follow Cardiology input. 4. DVT and GI prophylaxis. 5. Follow up in the outpatient department with either myself or Dr. Clark. DIANA HOROWITZ MD Jun 30, 2018 08:59
[2018-06-30] MEDS: LOSARTAN POTASSIUM 25 MG TABLET. PO SCH (09:37)
[2018-06-30] MEDS: ACETAMINOPHEN 325 MG TABLET. PO PRN (09:37)
[2018-06-30] MEDS: ASPIRIN ENTERIC COATED 81 MG TABLET.DR. PO SCH (09:37)
[2018-06-30] MEDS: POTASSIUM CHLORIDE 20 MEQ TABLET.ER. PO SCH ×2 (09:38→17:43)
[2018-06-30] MEDS: hydroCHLOROthiazide 12.5 MG CAPSULE PO SCH (09:38)
--- NOTE | 2018-06-30 09:44 | PDOC ---
CARDIO Progress Notes Date and Time Date of Service 06/30/18 Time of Evaluation 0930 Subjective Subjective: No Chest Pain, No shortness of breath Vitals Vitals Vital Signs Date Time Temp Pulse Resp B/P (MAP) Pulse Ox O2 Delivery O2 Flow Rate FiO2 06/30/18 07:00 98.9 100 18 116/74 (88) 94 Nasal Cannula 5.0 98.9 Weight Weight [ ] Input and Output Intake and Output Intake and Output 06/30/18 07:00 # Voids 6 Laboratory Labs Laboratory Tests Test 06/29/18 18:45 06/30/18 03:20 Troponin I Quantitative 0.363 ng/mL (0.000-0.055) Sodium Level 143 mmol/L (136-145) Potassium Level 4.5 mmol/L (3.5-5.1) Chloride Level 103 mmol/L (98-107) Carbon Dioxide Level 37 mmol/L (21-32) Anion Gap 3 (6-14) Blood Urea Nitrogen 15 mg/dL (7-20) Creatinine 0.8 mg/dL (0.6-1.0) Estimated GFR (Cockcroft-Gault) 87.1 BUN/Creatinine Ratio 19 (6-20) Glucose Level 100 mg/dL (70-99) Calcium Level 8.4 mg/dL (8.5-10.1) Total Bilirubin 0.9 mg/dL (0.2-1.0) Aspartate Amino Transf (AST/SGOT) 22 U/L (15-37) Alanine Aminotransferase (ALT/SGPT) 30 U/L (14-59) Alkaline Phosphatase 54 U/L (46-116) Total Protein 6.0 g/dL (6.4-8.2) Albumin 2.4 g/dL (3.4-5.0) Albumin/Globulin Ratio 0.7 (1.0-1.7) Triglycerides Level 43 mg/dL (0-150) Cholesterol Level 99 mg/dL (0-200) LDL Cholesterol, Calculated 58 mg/dL (0-100) VLDL Cholesterol, Calculated 9 mg/dL (0-40) Non-HDL Cholesterol Calculated 67 mg/dL (0-129) HDL Cholesterol 32 mg/dL (40-60) Cholesterol/HDL Ratio 3.1 Microbiology Micro Microbiology 06/28/18 Urine Culture - Final, Complete 06/28/18 Urine Culture Result 1 (MORGAN) - Final, Complete Physical Exam HEENT: Neck Supple W Full Motion Chest: Symmetric LUNGS: Other (dimiinshed, fine expiratory wheeze) Heart: S1S2, RRR (v-paced ), murmurs (2/6 systolic murmur ) Abdomen: Soft N/T Extremities: No Calf Tenderness Neurology: alert, oriented, follow commands Assessment Assessment 1. Acute on chronic hypoxic respiratory secondary to AECOPD. Suspicions for PE low. continue as per pulm 2. Chronic diastolic CHF: CXR without vascular congestion. Echo pending 3. CAD: Previous CT notable for coronary calcifications. No known previous workup. Reports worsening QUINN. Lipids on goal 4. Elevated troponin; peak 0.365 5. HTN: now controlled 6. 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 Device interrogate reveals normal device function. 99.5% v-paced. Consider upgrade to [employer] HE[employer]Y 7. Hx of RA with prior methotrexate use and now on Humira. 8. Severe pulmonary HTN; PAP 91 mmHg Recommendation Continue ASA, BB, ARB Given risk factors, worsening QUINN, and coronary calcifications noted on CT, will proceed with MPI to r/o ischemia. D/w primary instrument inspector. Lung optimization as per DEVANTE Sanon APRN Jun 30, 2018 09:44
[2018-06-30] MEDS ORDERED: ALBUTEROL SULFATE 2.5 MG/3 ML NEBU. IH ONE (10:00)
--- NOTE | 2018-06-30 10:55 | PDOC ---
IM PROGRESS NOTES- Subjective Subjective Dyspnea is improving Objective Vitals Vital Signs Date Time Temp Pulse Resp B/P (MAP) Pulse Ox O2 Delivery O2 Flow Rate FiO2 06/30/18 10:03 Nasal Cannula 5.0 06/30/18 09:37 98 145/85 06/30/18 07:00 98.9 18 94 98.9 Input & Output Intake and Output 06/30/18 07:00 # Voids 6 Physical Exam Physical Exam General appearance -alert, chronically ill, in mild distress, oriented 3 Mental Status - alert, oriented to person, place, and time, affect appropriate to mood Head - normal Chest -decreased breath sounds at bases Heart - S1 and S2 normal Abdomen - soft, nontender, nondistended, no masses or organomegaly Neurological - alert and oriented Musculoskeletal - no muscular tenderness noted Extremities - no pedal edema Skin - warm and dry Labs Laboratory Tests Test 06/28/18 12:17 06/28/18 12:20 06/28/18 12:25 06/28/18 13:20 O2 Saturation 93 % (92-99) Arterial Blood pH 7.41 (7.35-7.45) Arterial Blood pCO2 at Patient Temp 49 mmHg (35-46) Arterial Blood pO2 at Patient Temp 71 mmHg (65-108) Arterial Blood HCO3 30 mmol/L (21-28) Arterial Blood Base Excess 4 mmol/L (-3-3) FiO2 40% nc White Blood Count 10.2 x10^3/uL (4.0-11.0) Red Blood Count 5.21 x10^6/uL (3.50-5.40) Hemoglobin 15.4 g/dL (12.0-15.5) Hematocrit 48.3 % (36.0-47.0) Mean Corpuscular Volume 93 fL (79-100) Mean Corpuscular Hemoglobin 30 pg (25-35) Mean Corpuscular Hemoglobin Concent 32 g/dL (31-37) Red Cell Distribution Width 13.8 % (11.5-14.5) Platelet Count 251 x10^3/uL (140-400) Neutrophils (%) (Auto) 83 % (31-73) Lymphocytes (%) (Auto) 7 % (24-48) Monocytes (%) (Auto) 9 % (0-9) Eosinophils (%) (Auto) 0 % (0-3) Basophils (%) (Auto) 1 % (0-3) Neutrophils # (Auto) 8.4 x10^3uL (1.8-7.7) Lymphocytes # (Auto) 0.7 x10^3/uL (1.0-4.8) Monocytes # (Auto) 0.9 x10^3/uL (0.0-1.1) Eosinophils # (Auto) 0.0 x10^3/uL (0.0-0.7) Basophils # (Auto) 0.1 x10^3/uL (0.0-0.2) Sodium Level 141 mmol/L (136-145) Potassium Level 3.5 mmol/L (3.5-5.1) Chloride Level 99 mmol/L (98-107) Carbon Dioxide Level 35 mmol/L (21-32) Anion Gap 7 (6-14) Blood Urea Nitrogen 15 mg/dL (7-20) Creatinine 0.9 mg/dL (0.6-1.0) Estimated GFR (Cockcroft-Gault) 76.0 BUN/Creatinine Ratio 17 (6-20) Glucose Level 132 mg/dL (70-99) Calcium Level 9.5 mg/dL (8.5-10.1) Total Bilirubin 1.6 mg/dL (0.2-1.0) Aspartate Amino Transf (AST/SGOT) 43 U/L (15-37) Alanine Aminotransferase (ALT/SGPT) 49 U/L (14-59) Alkaline Phosphatase 79 U/L (46-116) Creatine Kinase 221 U/L (26-192) Creatine Kinase MB (Mass) 2.5 ng/mL (0.0-3.6) Creatine Kinase MB Relative Index 1.1 % (0-4) Troponin I Quantitative 0.047 ng/mL (0.000-0.055) HM-Wnk-A-Type Natriuretic Peptide 3891 pg/mL (0-124) Total Protein 8.0 g/dL (6.4-8.2) Albumin 3.6 g/dL (3.4-5.0) Albumin/Globulin Ratio 0.8 (1.0-1.7) Urine Collection Type Void Urine Color Yellow Urine Clarity Clear Urine pH 6.0 Urine Specific [place] 1.010 Urine Protein 100 mg/dL (NEG-TRACE) Urine Glucose (UA) Negative mg/dL (NEG) Urine Ketones (Stick) Negative mg/dL (NEG) Urine Blood Trace (NEG) Urine Nitrite Negative (NEG) Urine Bilirubin Negative (NEG) Urine Urobilinogen Dipstick 0.2 mg/dL (0.2 mg/dL) Urine Leukocyte Esterase Small (NEG) Urine RBC Rare /HPF (0-2) Urine WBC Rare /HPF (0-4) Urine Squamous Epithelial Cells Few /LPF Urine Bacteria Few /HPF (0-FEW) Test 06/29/18 06:25 06/29/18 18:45 06/30/18 03:20 White Blood Count 11.2 x10^3/uL (4.0-11.0) Red Blood Count 4.56 x10^6/uL (3.50-5.40) Hemoglobin 13.5 g/dL (12.0-15.5) Hematocrit 42.4 % (36.0-47.0) Mean Corpuscular Volume 93 fL (79-100) Mean Corpuscular Hemoglobin 30 pg (25-35) Mean Corpuscular Hemoglobin Concent 32 g/dL (31-37) Red Cell Distribution Width 13.8 % (11.5-14.5) Platelet Count 208 x10^3/uL (140-400) Neutrophils (%) (Auto) 81 % (31-73) Lymphocytes (%) (Auto) 6 % (24-48) Monocytes (%) (Auto) 12 % (0-9) Eosinophils (%) (Auto) 0 % (0-3) Basophils (%) (Auto) 1 % (0-3) Neutrophils # (Auto) 9.2 x10^3uL (1.8-7.7) Lymphocytes # (Auto) 0.7 x10^3/uL (1.0-4.8) Monocytes # (Auto) 1.3 x10^3/uL (0.0-1.1) Eosinophils # (Auto) 0.0 x10^3/uL (0.0-0.7) Basophils # (Auto) 0.1 x10^3/uL (0.0-0.2) Sodium Level 143 mmol/L (136-145) 143 mmol/L (136-145) Potassium Level 4.4 mmol/L (3.5-5.1) 4.5 mmol/L (3.5-5.1) Chloride Level 103 mmol/L (98-107) 103 mmol/L (98-107) Carbon Dioxide Level 37 mmol/L (21-32) 37 mmol/L (21-32) Anion Gap 3 (6-14) 3 (6-14) Blood Urea Nitrogen 24 mg/dL (7-20) 15 mg/dL (7-20) Creatinine 0.7 mg/dL (0.6-1.0) 0.8 mg/dL (0.6-1.0) Estimated GFR (Cockcroft-Gault) 101.6 87.1 BUN/Creatinine Ratio 34 (6-20) 19 (6-20) Glucose Level 108 mg/dL (70-99) 100 mg/dL (70-99) Calcium Level 8.8 mg/dL (8.5-10.1) 8.4 mg/dL (8.5-10.1) Total Bilirubin 0.9 mg/dL (0.2-1.0) 0.9 mg/dL (0.2-1.0) Aspartate Amino Transf (AST/SGOT) 26 U/L (15-37) 22 U/L (15-37) Alanine Aminotransferase (ALT/SGPT) 29 U/L (14-59) 30 U/L (14-59) Alkaline Phosphatase 66 U/L (46-116) 54 U/L (46-116) Troponin I Quantitative 0.365 ng/mL (0.000-0.055) 0.363 ng/mL (0.000-0.055) Total Protein 6.0 g/dL (6.4-8.2) 6.0 g/dL (6.4-8.2) Albumin 2.3 g/dL (3.4-5.0) 2.4 g/dL (3.4-5.0) Albumin/Globulin Ratio 0.6 (1.0-1.7) 0.7 (1.0-1.7) Triglycerides Level 43 mg/dL (0-150) Cholesterol Level 99 mg/dL (0-200) LDL Cholesterol, Calculated 58 mg/dL (0-100) VLDL Cholesterol, Calculated 9 mg/dL (0-40) Non-HDL Cholesterol Calculated 67 mg/dL (0-129) HDL Cholesterol 32 mg/dL (40-60) Cholesterol/HDL Ratio 3.1 Laboratory Tests Test 06/29/18 18:45 06/30/18 03:20 Troponin I Quantitative 0.363 ng/mL (0.000-0.055) Sodium Level 143 mmol/L (136-145) Potassium Level 4.5 mmol/L (3.5-5.1) Chloride Level 103 mmol/L (98-107) Carbon Dioxide Level 37 mmol/L (21-32) Anion Gap 3 (6-14) Blood Urea Nitrogen 15 mg/dL (7-20) Creatinine 0.8 mg/dL (0.6-1.0) Estimated GFR (Cockcroft-Gault) 87.1 BUN/Creatinine Ratio 19 (6-20) Glucose Level 100 mg/dL (70-99) Calcium Level 8.4 mg/dL (8.5-10.1) Total Bilirubin 0.9 mg/dL (0.2-1.0) Aspartate Amino Transf (AST/SGOT) 22 U/L (15-37) Alanine Aminotransferase (ALT/SGPT) 30 U/L (14-59) Alkaline Phosphatase 54 U/L (46-116) Total Protein 6.0 g/dL (6.4-8.2) Albumin 2.4 g/dL (3.4-5.0) Albumin/Globulin Ratio 0.7 (1.0-1.7) Triglycerides Level 43 mg/dL (0-150) Cholesterol Level 99 mg/dL (0-200) LDL Cholesterol, Calculated 58 mg/dL (0-100) VLDL Cholesterol, Calculated 9 mg/dL (0-40) Non-HDL Cholesterol Calculated 67 mg/dL (0-129) HDL Cholesterol 32 mg/dL (40-60) Cholesterol/HDL Ratio 3.1 Meds Current Medications Albuterol Sulfate (Ventolin Neb Soln) 2.5 mg 1X ONCE IH Last administered on at 10:01; Start 06/30/18 at 10:00; Stop 06/30/18 at 10:01; Status DC Aspirin (Ecotrin) 81 mg [id number] PO Last administered on 06/30/18at 09:37; Start 06/30/18 at 08:00 Enoxaparin Sodium (Lovenox 30mg Syringe) 30 mg 1X ONCE SQ Last administered on 06/29/18at 20:19; Start 06/29/18 at 19:45; Stop 06/29/18 at 19:46; Status DC Enoxaparin Sodium (Lovenox 40mg Syringe) 40 mg 1X ONCE SQ ; Start 06/29/18 at 19:45; Stop 06/29/18 at 19:45; Status DC Assessment Assessment 1. Acute on chronic hypoxic respiratory failure with hypercapnia. This may be likely because the patient has not been able to afford her oxygen at home and CPAP at home. 2. Acute exacerbation of chronic obstructive pulmonary disease. The patient was given IV Solu-Medrol earlier. We will continue breathing treatment. 3. Acute congestive heart failure. 4. Coronary artery disease. 5. Elevated troponin, may be type 2 demand ischemia. 6. Hypertensive crisis. 7. Rheumatoid arthritis, on Humira. 8. Coronary artery disease. 9. Osteoarthritis. 10. Obstructive sleep apnea. 11. History of cardiac pacemaker. 12. 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 PLAN: We will admit to the hospital. We will enlist the help of social work case manager to see if we can get her CPAP and oxygen restored at home. Consult Dr. Beltre for pulmonary evaluation and management, consult Dr. Mcgee for cardiology evaluation and management. I will also replace potassium for hypokalemia. For details, please refer to the orders. Consult social work case manager. Slowly improving. Patient is going to get the PFTs, pacemaker interrogation, stress test and echocardiogram. Troponin levels are elevated. Likely type II demand ischemia. If stable discharge in a.m. Plan Plan For more details regarding further plans, please refer to the orders. CAROLINE EATON MD Jun 30, 2018 10:55
[2018-06-30 11:00] VITALS: BP 128/78
[2018-06-30] MEDS ORDERED: REGADENOSON 0.4 MG/5 ML DISP.SYRIN. IV ONE ×2 (11:30→12:00)
--- NOTE | 2018-06-30 11:38 | CARD ---
MR#: [id number] Date of Study: 06/30/2018 Ordering Physician: DELROY CUBA, Referring Physician: CAROLINE EATON Tech: Andreina Callaway JOSEPH APPROVED REPORT EXAM: Two-dimensional and M-mode echocardiogram with Doppler and color Doppler. Other Information Quality : Good INDICATION Dyspnea On Exertion Surgery/Intervention Pacemaker: 2D DIMENSIONS RVDd2.4 (2.9-3.5cm)Left Atrium(2D)3.0 (1.6-4.0cm) IVSd1.1 (0.7-1.1cm)Aortic Root(2D)2.5 (2.0-3.7cm) LVDd4.0 (3.9-5.9cm)LVOT Diameter1.9 (1.8-2.4cm) PWd1.3 (0.7-1.1cm)LVDs1.5 (2.5-4.0cm) FS (%) 30.0 %SV64.1 ml LVEF(%)60.0 (>50%) Aortic Valve AoV Peak Davidson.158.6cm/sAoV VTI27.2cm AO Peak GR.10.1mmHgLVOT Peak Davidson.118.9cm/s LVOT VTI 21.75cmAO Mean GR.6mmHg KIMBERLEE (VMAX)2.52kb5BNE (VTI)2.39cm2 Tricuspid Valve TR P. Jngeytxb771gx/sRAP FZFNHJMC26lvPw TR Peak Gr.45zeGsXFOI59dcCl Pulmonary Vein S1 Ypdpkher68.2cm/sD2 Tzrrbgee46.8cm/s LEFT VENTRICLE The left ventricle is normal size. There is mild concentric left ventricular hypertrophy. Apical wall hypokinesis. The ejection fraction is estimated at 50%. Transmitral Doppler flow pattern is Grade I- abnormal relaxation pattern. RIGHT VENTRICLE The right ventricle is normal size. The right ventricular systolic function is normal. There is a pac emaker lead in the right ventricle. ATRIA The left atrium size is normal. The right atrium size is normal. A pacemaker is seen in the right atr ium consistent with history. The interatrial septum is intact with no evidence for an atrial septal d efect or patent foramen ovale as noted on 2-D or Doppler imaging. AORTIC VALVE The aortic valve is calcified but opens well. Doppler and Color Flow revealed no significant aortic r egurgitation. There is no significant aortic valvular stenosis. MITRAL VALVE The mitral valve is calcified but opens well. Posterior mitral annular calcification is mild. There i s no evidence of mitral valve prolapse. There is no mitral valve stenosis. Doppler and Color-flow rev ealed trace mitral regurgitation. TRICUSPID VALVE The tricuspid valve is normal in structure and function. Doppler and Color Flow revealed moderate tri cuspid regurgitation. There is severe pulmonary hypertension. The PA pressure was estimated at 91 mmH g. There is no tricuspid valve stenosis. PULMONIC VALVE The pulmonic valve is not well visualized. Doppler and Color Flow revealed no pulmonic valvular regur gitation. There is no pulmonic valvular stenosis. GREAT VESSELS The aortic root is normal in size. The ascending aorta is mildly dilated 3.4 cm. The IVC is dilated a nd collapses <50% with inspiration. PERICARDIAL EFFUSION There is no evidence of significant pericardial effusion. Critical Notification Critical Value: No <Conclusion> Apical wall hypokinesis. The ejection fraction is estimated at 50%. There is a pacemaker lead in the right ventricle. Trace mitral regurgitation. Moderate tricuspid regurgitation. There is severe pulmonary hypertension. The PA pressure was estimated at 91 mmHg. There is no evidence of significant pericardial effusion. Signed by : Garrett Josue, Electronically Approved : 06/30/2018 11:37:27
--- NOTE | 2018-06-30 11:44 | NUR ---
SW consulted for home 02 and CPAP. Spoke with pt at bedside regarding home 02. Pt does not have home 02 and needs 6 min walk to eval needs. Pt also interested in CPAP. Discussed with RN regarding 6 min walk order. Will continue to follow.
--- NOTE | 2018-06-30 14:46 | OP ---
DATE OF SURGERY: 06/30/2018 ATTENDING PHYSICIAN: Diana Horowitz MD. The patient underwent spirometry, pre- and post-bronchodilator on 06/30/2018. The FEV1 to FVC ratio was 51%, FEV1 was 450 mL at 23% of predicted, FVC was 880 mL at 35% of predicted. There was 28% bronchodilator response. IMPRESSION: 1. Severe air flow limitation. 2. Significant bronchodilator response. DIANA HOROWITZ MD DR: CELIO/sanchez JOB#: [id number] / [id number]
[2018-06-30 15:00] VITALS: BP 132/83
[2018-06-30] MEDS: METOPROLOL TART IMMED RELEASE 25 MG TABLET. PO SCH ×2 (15:23→20:50)
--- NOTE | 2018-06-30 15:34 | RAD ---
MR#: [id number] Date of Study: 06/30/2018 Ordering Physician: DEVANTE SCOTT, Referring Physician: KRISTIAN DRIVER Tech: JOHN Webb, ARRT (R) (N) APPROVED REPORT Test Type: Pharmacological Stress Nurse/Tech: Maria E Puente RN, Amparo Wheeler RN Test Indications: CAD, QUINN, HTN, former smoker Cardiac History: Hypertension, CHF, pacemaker, COPD Medications: See Electronic Medical Record Medical History: See Electronic Medical Record Resting ECG: A-paced Resting Heart Rate: 97 bpm Resting Blood Pressure: 130/80mmHg Pretest Chest Pain: None Nurse/Tech Notes S1S2. Lung sounds clear. Consent: The procedure was explained to the patient in lay terms. Informed consent was witnessed. Abdiel eout was entered into [employer]. History and Stress Test performed by RT Geneva (R) (N) Pharm. Details Pharmacologic stress testing was performed using 0.4mg per 5ml of regadenoson given intravenously ove r 7-10 seconds. Stress Symptoms No chest pain or symptoms. POST EXERCISE Reason for Termination: Infusion complete Target HR: No Max HR: 112 bpm Max Blood Pressure: 140/82mmHg Blood Pressure response to exercise: Normal blood pressure response during stress. Heart Rate response to exercise: within normal limits Chest Pain: No. Arrhythmia: No. ST Change: No. INTERPRETATION Stress EKG Conclusion: Baseline EKG showed ventricualar paced rhythm. Non diagnostic changes at peak stress. No arrhythmias. Imaging Protocol IMAGE PROTOCOL: Rest Tc-99m/stress Tc-99m 1 day Rest: Stress: Viability: Radiopharm.Tc99m ClszxemmhQd01z Sestamibi Dose9.8mCi 32mCi Img Date 06/30/2018 06/30/2018 Rest Admin Site:IV - Right HandAdministrator:RT Jadon Bean)(N) Stress Admin Site: IV - Right HandAdministrator: RT Jadon Bean)(N) STRESS DATA End Diast. Vol.98.0mlAv. Heart Rate92.0bpm End Syst. Vol.38.0mlCO Index BSA0.0L/min Myocardial Kefm787.0gEject. Ylaropep90.0% Stress Rates Pk. Fill Rate3.35EDV/secLVtime Pk. Fill 178.21msec Pk. Empty Rate2.95ESV/secLVtime Pk. Uyezu350.61msec / Pk. Fill0.24EDV/sec Stress Scores Regional WT0.00Summed WT28.00 Regional WM0.00Summed WM19.00 LV Perfusion Scintigraphic images showed large fixed defect involving the distal anterior wall and apical wall con sistent with previous myocardial infarction without any significant reversibility. Wall Motion Apical wall hypokinesis with ejection fraction calculated at 61%. LV Perf. Quant 17 Seg. SSS23.00 17 Seg. SRS29.00 17 Seg. SDS0.00 Stress Defect Extent (% LAD)49.40Rest Defect Extent (% LAD)58.80Rev. Defect Extent (% LAD)0.00 Stress Defect Extent (% LCX) 47.50Rest Defect Extent (% LCX)60.00Rev. Defect Extent (% LCX)0.00 Stress Defect Extent (% RCA)45.60Rest Defect Extent (% RCA)54.40Rev. Defect Extent (% RCA)0.00 Stress Defect Extent (% KERON)50.90Rest Defect Extent (% KERON)60.00Rev. Defect Extent (% KERON)0.00 Conclusion 1. Regadenoson cardioisotope stress test showed large infarct involving the distal anterior wall and the apical wall without any significant ischemia. 2. Apical wall hypokinesis with ejection fraction calculated at 61%. 3. Low to intermediate risk for cardiac events. Signed by : Garrett Josue, Electronically Approved : 06/30/2018 15:33:25
[2018-06-30] MEDS: ENOXAPARIN 40 MG/0.4 ML SYRINGE. SQ SCH (17:47)
[2018-06-30 19:00] VITALS: BP 115/64
[2018-06-30] MEDS: FAMOTIDINE 20 MG TABLET. PO SCH (20:50)
[2018-06-30] MEDS: SIMVASTATIN 40 MG TABLET. PO SCH (20:50)
[2018-06-30 23:00] VITALS: BP 131/81
[2018-07-01 03:00] VITALS: BP 121/75
[2018-07-01] MEDS: ACETAMINOPHEN 325 MG TABLET. PO PRN (05:10)
[2018-07-01 05:48] LABS: ALBUMIN 2.5 g/dL (3.4-5.0); ALBUMIN/GLOBULIN RATIO 0.6 (1.0-1.7); CALCIUM 8.9 mg/dL (8.5-10.1); CREATININE 0.7 mg/dL (0.6-1.0); GFR 101.6; TOTAL BILIRUBIN 1.3 mg/dL (0.2-1.0); TOTAL PROTEIN 6.4 g/dL (6.4-8.2)
[2018-07-01 07:00] VITALS: BP 131/75
[2018-07-01] MEDS: ASPIRIN ENTERIC COATED 81 MG TABLET.DR. PO SCH (08:00)
[2018-07-01] MEDS: METOPROLOL TART IMMED RELEASE 25 MG TABLET. PO SCH (08:22)
[2018-07-01] MEDS: hydroCHLOROthiazide 12.5 MG CAPSULE PO SCH (08:22)
[2018-07-01] MEDS: POTASSIUM CHLORIDE 20 MEQ TABLET.ER. PO SCH (08:22)
[2018-07-01] MEDS: LOSARTAN POTASSIUM 25 MG TABLET. PO SCH (08:23)
--- NOTE | 2018-07-01 09:24 | PDOC ---
PULMONARY PROGRESS NOTES Subjective PT BETTER LESS SOA Vitals Vital Signs Date Time Temp Pulse Resp B/P (MAP) Pulse Ox O2 Delivery O2 Flow Rate FiO2 07/01/18 08:23 87 131/75 07/01/18 07:00 98.6 18 100 Nasal Cannula 5.0 98.6 ROS: No Nausea, No Chest Pain, No Abdominal Pain, No Increase Cough Lungs: Crackles Cardiovascular: S1, S2 Abdomen: Soft Neuro Exam: Alert Extremities: No Edema Skin: Warm Labs Laboratory Tests Test 06/29/18 18:45 06/30/18 03:20 07/01/18 04:40 Troponin I Quantitative 0.363 ng/mL (0.000-0.055) Sodium Level 143 mmol/L (136-145) 144 mmol/L (136-145) Potassium Level 4.5 mmol/L (3.5-5.1) 5.0 mmol/L (3.5-5.1) Chloride Level 103 mmol/L (98-107) 102 mmol/L (98-107) Carbon Dioxide Level 37 mmol/L (21-32) 40 mmol/L (21-32) Anion Gap 3 (6-14) 2 (6-14) Blood Urea Nitrogen 15 mg/dL (7-20) 9 mg/dL (7-20) Creatinine 0.8 mg/dL (0.6-1.0) 0.7 mg/dL (0.6-1.0) Estimated GFR (Cockcroft-Gault) 87.1 101.6 BUN/Creatinine Ratio 19 (6-20) 13 (6-20) Glucose Level 100 mg/dL (70-99) 105 mg/dL (70-99) Calcium Level 8.4 mg/dL (8.5-10.1) 8.9 mg/dL (8.5-10.1) Total Bilirubin 0.9 mg/dL (0.2-1.0) 1.3 mg/dL (0.2-1.0) Aspartate Amino Transf (AST/SGOT) 22 U/L (15-37) 26 U/L (15-37) Alanine Aminotransferase (ALT/SGPT) 30 U/L (14-59) 29 U/L (14-59) Alkaline Phosphatase 54 U/L (46-116) 52 U/L (46-116) Total Protein 6.0 g/dL (6.4-8.2) 6.4 g/dL (6.4-8.2) Albumin 2.4 g/dL (3.4-5.0) 2.5 g/dL (3.4-5.0) Albumin/Globulin Ratio 0.7 (1.0-1.7) 0.6 (1.0-1.7) Triglycerides Level 43 mg/dL (0-150) Cholesterol Level 99 mg/dL (0-200) LDL Cholesterol, Calculated 58 mg/dL (0-100) VLDL Cholesterol, Calculated 9 mg/dL (0-40) Non-HDL Cholesterol Calculated 67 mg/dL (0-129) HDL Cholesterol 32 mg/dL (40-60) Cholesterol/HDL Ratio 3.1 Laboratory Tests Test 07/01/18 04:40 Sodium Level 144 mmol/L (136-145) Potassium Level 5.0 mmol/L (3.5-5.1) Chloride Level 102 mmol/L (98-107) Carbon Dioxide Level 40 mmol/L (21-32) Anion Gap 2 (6-14) Blood Urea Nitrogen 9 mg/dL (7-20) Creatinine 0.7 mg/dL (0.6-1.0) Estimated GFR (Cockcroft-Gault) 101.6 BUN/Creatinine Ratio 13 (6-20) Glucose Level 105 mg/dL (70-99) Calcium Level 8.9 mg/dL (8.5-10.1) Total Bilirubin 1.3 mg/dL (0.2-1.0) Aspartate Amino Transf (AST/SGOT) 26 U/L (15-37) Alanine Aminotransferase (ALT/SGPT) 29 U/L (14-59) Alkaline Phosphatase 52 U/L (46-116) Total Protein 6.4 g/dL (6.4-8.2) Albumin 2.5 g/dL (3.4-5.0) Albumin/Globulin Ratio 0.6 (1.0-1.7) Medications Active Scripts Medications Dose Route/Sig Max Daily Dose Days Date Category Metoprolol Tartrate 25 Mg Tablet 25 Mg PO BID 06/28/18 Reported Tramadol Hcl 50 Mg Tablet 50 Mg PO PRN Q6HRS PRN 06/28/18 Reported Humira (Adalimumab) 40 Mg/0.8 Ml Pen.ij.kit 40 Mg SQ Q2WKS 02/20/15 Reported Hydrochlorothiazide Tablet (Hydrochlorothiazide) 12.5 Mg Tablet 12.5 Mg PO DAILY 02/19/15 Reported Simvastatin 40 Mg Tablet 40 Mg PO HS 02/19/15 Reported Ultram (Tramadol Hcl) 50 Mg Tablet 50 Mg PO Q6H PRN 02/19/15 Reported Losartan Potassium (Losartan Potassium) 25 Mg Tablet 25 Mg PO DAILY 10/30/13 Reported Impression . IMPRESSION: 1. Acute hypoxemic respiratory failure secondary to acute exacerbation of chronic obstructive pulmonary disease. 2. Acute exacerbation of chronic obstructive pulmonary disease. 3. Eeged-px-vkdufpy diastolic heart failure. 4. Coronary artery disease. 5. Elevated troponin, suspect type 2 demand ischemia. 6. Hypertensive crisis. 7. 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 8. Obstructive sleep apnea. 9. 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 FEVI LESS THAN ONE LITER Conclusion 1. Regadenoson cardioisotope stress test showed large infarct involving the distal anterior wall and the apical wall without any significant ischemia. 2. Apical wall hypokinesis with ejection fraction calculated at 61%. 3. Low to intermediate risk for cardiac events. Plan . D/C HOME ON O2 3L REST 8 EXERTION ANSWERED ALL QUESTIONS, USE COMMON SENSE WITH ACTIVITY FOLLOW UP IN OFFICE 2-4 WEEKS DIANA HOROWITZ MD Jul 01, 2018 09:24
--- NOTE | 2018-07-01 10:08 | NUR ---
SAMANTHA following pt. SAMANTHA screened pt with [facility] and [facility] to see if they are in network with insurance. Sammy from [facility] reported they do take Jose insurance. Pt will need 6 min walk to evde home 02 needs. MOO Physician.
--- NOTE | 2018-07-01 10:47 | PDOC ---
IM PROGRESS NOTES- Subjective Subjective Dyspnea is improving Objective Vitals Vital Signs Date Time Temp Pulse Resp B/P (MAP) Pulse Ox O2 Delivery O2 Flow Rate FiO2 07/01/18 08:23 87 131/75 07/01/18 07:00 98.6 18 100 Nasal Cannula 5.0 98.6 Input & Output Intake and Output 07/01/18 07:00 Intake Total 320 ml Balance 320 ml Intake Oral 320 ml # Voids 2 Physical Exam Physical Exam General appearance -alert, chronically ill, in mild distress, oriented 3 Mental Status - alert, oriented to person, place, and time, affect appropriate to mood Head - normal Chest -decreased breath sounds at bases Heart - S1 and S2 normal Abdomen - soft, nontender, nondistended, no masses or organomegaly Neurological - alert and oriented Musculoskeletal - no muscular tenderness noted Extremities - no pedal edema Skin - warm and dry Labs Laboratory Tests Test 06/29/18 18:45 06/30/18 03:20 07/01/18 04:40 Troponin I Quantitative 0.363 ng/mL (0.000-0.055) Sodium Level 143 mmol/L (136-145) 144 mmol/L (136-145) Potassium Level 4.5 mmol/L (3.5-5.1) 5.0 mmol/L (3.5-5.1) Chloride Level 103 mmol/L (98-107) 102 mmol/L (98-107) Carbon Dioxide Level 37 mmol/L (21-32) 40 mmol/L (21-32) Anion Gap 3 (6-14) 2 (6-14) Blood Urea Nitrogen 15 mg/dL (7-20) 9 mg/dL (7-20) Creatinine 0.8 mg/dL (0.6-1.0) 0.7 mg/dL (0.6-1.0) Estimated GFR (Cockcroft-Gault) 87.1 101.6 BUN/Creatinine Ratio 19 (6-20) 13 (6-20) Glucose Level 100 mg/dL (70-99) 105 mg/dL (70-99) Calcium Level 8.4 mg/dL (8.5-10.1) 8.9 mg/dL (8.5-10.1) Total Bilirubin 0.9 mg/dL (0.2-1.0) 1.3 mg/dL (0.2-1.0) Aspartate Amino Transf (AST/SGOT) 22 U/L (15-37) 26 U/L (15-37) Alanine Aminotransferase (ALT/SGPT) 30 U/L (14-59) 29 U/L (14-59) Alkaline Phosphatase 54 U/L (46-116) 52 U/L (46-116) Total Protein 6.0 g/dL (6.4-8.2) 6.4 g/dL (6.4-8.2) Albumin 2.4 g/dL (3.4-5.0) 2.5 g/dL (3.4-5.0) Albumin/Globulin Ratio 0.7 (1.0-1.7) 0.6 (1.0-1.7) Triglycerides Level 43 mg/dL (0-150) Cholesterol Level 99 mg/dL (0-200) LDL Cholesterol, Calculated 58 mg/dL (0-100) VLDL Cholesterol, Calculated 9 mg/dL (0-40) Non-HDL Cholesterol Calculated 67 mg/dL (0-129) HDL Cholesterol 32 mg/dL (40-60) Cholesterol/HDL Ratio 3.1 Laboratory Tests Test 07/01/18 04:40 Sodium Level 144 mmol/L (136-145) Potassium Level 5.0 mmol/L (3.5-5.1) Chloride Level 102 mmol/L (98-107) Carbon Dioxide Level 40 mmol/L (21-32) Anion Gap 2 (6-14) Blood Urea Nitrogen 9 mg/dL (7-20) Creatinine 0.7 mg/dL (0.6-1.0) Estimated GFR (Cockcroft-Gault) 101.6 BUN/Creatinine Ratio 13 (6-20) Glucose Level 105 mg/dL (70-99) Calcium Level 8.9 mg/dL (8.5-10.1) Total Bilirubin 1.3 mg/dL (0.2-1.0) Aspartate Amino Transf (AST/SGOT) 26 U/L (15-37) Alanine Aminotransferase (ALT/SGPT) 29 U/L (14-59) Alkaline Phosphatase 52 U/L (46-116) Total Protein 6.4 g/dL (6.4-8.2) Albumin 2.5 g/dL (3.4-5.0) Albumin/Globulin Ratio 0.6 (1.0-1.7) Meds Current Medications Regadenoson (Lexiscan) 0.4 mg 1X ONCE IV Last administered on 06/30/18at 13:22 ; Start 06/30/18 at 11:30; Stop 06/30/18 at 11:31; Status DC Regadenoson (Lexiscan) 0.4 mg 1X ONCE IV ; Start 06/30/18 at 12:00; Stop at 12:01; Status DC Assessment Assessment 1. Acute on chronic hypoxic respiratory failure with hypercapnia. This may be likely because the patient has not been able to afford her oxygen at home and CPAP at home. 2. Acute exacerbation of chronic obstructive pulmonary disease. The patient was given IV Solu-Medrol earlier. We will continue breathing treatment. 3. Acute congestive heart failure. 4. Coronary artery disease. 5. Elevated troponin, may be type 2 demand ischemia. 6. Hypertensive crisis. 7. Rheumatoid arthritis, on Humira. 8. Coronary artery disease. 9. Osteoarthritis. 10. Obstructive sleep apnea. 11. History of cardiac pacemaker. 12. 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 PLAN: We will admit to the hospital. We will enlist the help of child protective services social worker to see if we can get her CPAP and oxygen restored at home. Consult Dr. Beltre for pulmonary evaluation and management, consult Dr. Mcgee for cardiology evaluation and management. I will also replace potassium for hypokalemia. For details, please refer to the orders. Consult child protective services social worker. Slowly improving. Patient is going to get the PFTs, pacemaker interrogation, stress test and echocardiogram. Troponin levels are elevated. Likely type II demand ischemia. Coronary artery disease - Nuclear medicine scan 1. Regadenoson cardioisotope stress test showed large infarct involving the distal anterior wall and the apical wall without any significant ischemia. 2. Apical wall hypokinesis with ejection fraction calculated at 61%. 3. Low to intermediate risk for cardiac events. Respiratory failure hypoxic- requiring 5 lit/min O2. Try to decrease the oxygen. Plan Plan For more details regarding further plans, please refer to the orders. CAROLINE EATON MD Jul 01, 2018 10:47
[2018-07-01] MEDS ORDERED: ASPI-612 PO (10:48)
[2018-07-01 11:00] VITALS: BP 114/71
--- NOTE | 2018-07-01 13:32 | PDOC ---
CARDIO Progress Notes Date and Time Date of Service 07/01/18 Time of Evaluation 1310 Subjective Subjective: No Chest Pain, Other (SOA improved ) Vitals Vitals Vital Signs Date Time Temp Pulse Resp B/P (MAP) Pulse Ox O2 Delivery O2 Flow Rate FiO2 07/01/18 11:00 97.6 79 18 114/71 (85) 96 Nasal Cannula 2.5 97.6 Weight Weight [ ] Input and Output Intake and Output Intake and Output 07/01/18 07:00 Intake Total 320 ml Balance 320 ml Intake Oral 320 ml # Voids 2 Laboratory Labs Laboratory Tests Test 07/01/18 04:40 Sodium Level 144 mmol/L (136-145) Potassium Level 5.0 mmol/L (3.5-5.1) Chloride Level 102 mmol/L (98-107) Carbon Dioxide Level 40 mmol/L (21-32) Anion Gap 2 (6-14) Blood Urea Nitrogen 9 mg/dL (7-20) Creatinine 0.7 mg/dL (0.6-1.0) Estimated GFR (Cockcroft-Gault) 101.6 BUN/Creatinine Ratio 13 (6-20) Glucose Level 105 mg/dL (70-99) Calcium Level 8.9 mg/dL (8.5-10.1) Total Bilirubin 1.3 mg/dL (0.2-1.0) Aspartate Amino Transf (AST/SGOT) 26 U/L (15-37) Alanine Aminotransferase (ALT/SGPT) 29 U/L (14-59) Alkaline Phosphatase 52 U/L (46-116) Total Protein 6.4 g/dL (6.4-8.2) Albumin 2.5 g/dL (3.4-5.0) Albumin/Globulin Ratio 0.6 (1.0-1.7) Microbiology Micro Microbiology 06/28/18 Urine Culture - Final, Complete 06/28/18 Urine Culture Result 1 (MORGAN) - Final, Complete Physical Exam HEENT: Neck Supple W Full Motion Chest: Symmetric LUNGS: Other (dimiinshed) Heart: S1S2, RRR (v-paced ), murmurs (2/6 systolic murmur ) Abdomen: Soft N/T Extremities: No Calf Tenderness Neurology: alert, oriented, follow commands Assessment Assessment 1. Acute on chronic hypoxic respiratory secondary to AECOPD. requiring O2 per 6 minute walk. continue as per pulm 2. Chronic diastolic CHF: CXR without vascular congestion. Echo showed LVEF 50 %. Appears compensated 3. CAD: Previous CT notable for coronary calcifications. No known previous workup. Reports worsening QUINN. Lipids on goal. MPI with large defect without any evidence of reversible ischemia 4. Elevated troponin; peak 0.365 5. HTN: now controlled 6. 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 Device interrogate reveals normal device function. 99.5% v-paced. 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 Hx of RA with prior methotrexate use and now on Humira. 8. Severe pulmonary HTN; PAP 91 mmHg Recommendation Continue ASA, BB, ARB Lung optimization as per pulmonary F/u in our office with Dr. Tabor in 3-4 weeks. DEVANTE SCOTT APRN Jul 01, 2018 13:32
[2018-07-01 15:00] VITALS: BP 125/100
--- NOTE | 2018-07-01 16:28 | NUR ---
SAMANTHA phoned and faxed orders to [facility]. SAMANTHA provided pt with a 02 tank and informed her to call [facility] once she is gets home so they can provide her with more 02 tanks. Pt verbalized understanding. MOO BLACK.
--- NOTE | 2018-07-01 16:57 | DISCH ---
DISCHARGE INSTRUCTIONS Condition on Discharge Condition on Discharge: Stable Activity After Discharge Activity Instructions for Disc: Activity as tolerated, Other, see below Diet after Discharge Diet after Discharge: Cardiac Diet Texture: Regular Contacting the DR. after DC Call your doctor for: If your condition worsens Follow-Up Follow up with: Dr.Pratip Eaton in 5 days Follow Up With: /Amber, Treatment/Equipment after DC Discharge Respiratory Equipmen: Oxygen (2 lit/min at rest and 2-8 lit/min with activity.), CPAP (use home settings) CAROLINE EATON MD Jul 01, 2018 16:57
[2018-07-01] MEDS: ENOXAPARIN 40 MG/0.4 ML SYRINGE. SQ SCH (18:00)
--- NOTE | 2018-07-01 19:30 | NUR ---
Discharge Note: MOOSE GUTIERRES Discharge instructions and discharge home medications reviewed with Patient and a copy given. All questions have been answered and understanding verbalized. The following instructions and handouts were given: discharge instructions, new prescription, education and follow up recommendations. Discontinued lines and drains: Peripheral IV discontinued intact. Patient discharged to Home or Self Care with Spouse via Wheelchair off unit by RN.
== END 2018-07-01 19:32 | disposition home or self-care (01) | DRG 280 ==
LOC: ER 11:49 → 5 NORTH 13:50
PROVIDERS: ADMIT Internal Medicine; ATTEND Internal Medicine
PROC: 4B02XSZ Measurement of Cardiac Pacemaker, External Approach (ICD-10-PCS; principal; 2018-07-01)
DX: I16.9 Hypertensive crisis, unspecified (principal); J96.22 Acute and chronic respiratory failure with hypercapnia; I21.09 ST elevation (STEMI) myocardial infarction involving other coronary artery of anterior wall; E43 Unspecified severe protein-calorie malnutrition; J96.21 Acute and chronic respiratory failure with hypoxia; J44.1 Chronic obstructive pulmonary disease with (acute) exacerbation; I44.2 Atrioventricular block, complete; I50.32 Chronic diastolic (congestive) heart failure; I11.0 Hypertensive heart disease with heart failure; M06.9 Rheumatoid arthritis, unspecified; I25.10 Atherosclerotic heart disease of native coronary artery without angina pectoris; M19.90 Unspecified osteoarthritis, unspecified site; G47.33 Obstructive sleep apnea (adult) (pediatric); E11.9 Type 2 diabetes mellitus without complications; I27.20 Pulmonary hypertension, unspecified; G56.00 Carpal tunnel syndrome, unspecified upper limb; Z87.891 Personal history of nicotine dependence; Z95.0 Presence of cardiac pacemaker; Z79.899 Other long term (current) drug therapy; Z90.2 Acquired absence of lung [part of]; Z90.710 Acquired absence of both cervix and uterus; Z87.81 Personal history of (healed) traumatic fracture; Z82.49 Family history of ischemic heart disease and other diseases of the circulatory system; Z82.3 Family history of stroke; Z82.0 Family history of epilepsy and other diseases of the nervous system; Z68.25 Body mass index [BMI] 25.0-25.9, adult
CPT/HCPCS: 36415; 36600; 71045; 78452; 80053; 80061; 81001; 82553; 82805; 83880; 84484; 85025; 87086; 93005; 93017; 93306; 94060; 94618; 94640; 94760; 96374; 96375; A9500; J1650; J1940; J2785; J2930; J7613; J7620; 99285-25

== ENCOUNTER → 2018-09-12 | Outpatient (CLI) | payer OTHER ==
[~2018-09-12] MED LIST changes: +ASPI-612 PO; +TRAM50TA PO; +ZOLPIDEM 5 MG TABLET. PO ONE
--- NOTE | 2018-09-13 14:37 | SLEEP ---
DATE OF STUDY: 09/12/2018 SLEEP STUDY DATE OF STUDY: 09/12/2018. PRIMARY CARE PHYSICIAN: Dr. Caroline Davidson. REFERRING PHYSICIAN: Dr. Beltre. The patient is 63 years old, who weighs 144 pounds with a BMI of 25. The patient had a previous sleep study in 2018, which showed mild DEEPTI with worsening during REM sleep. The patient was placed on CPAP at 18 cm water. The patient was referred for another titration study. During the night study, the patient spent 446 minutes in bed and slept for 395 minutes with a sleep efficiency of 88%. Sleep latency was 4 minutes with a REM latency of 121 minutes. Overall, sleep architecture showed normal stage 1 sleep, increased stage 2 sleep, normal slow wave and reduced REM sleep. EKG monitoring revealed average heart rate of 85 beats per minute, appeared to be a paced rhythm. No arrhythmias observed. PLMS were seen at an index of 16 per hour and 5 per hour caused EEG arousals. The patient was started on CPAP at 5 cm of water and titrated up to 18 cm of water. At the final pressure, the patient slept for 41 minutes. The patient had supine as well as REM sleep. The patient's oxygen level remained in the high 70s to low 80s and at the final pressure, saturation lowest was 79%. The patient would benefit from supplemental oxygen. The patient used a full face mask. IMPRESSION: 1. Sleep apnea diagnosed previously. 2. Nocturnal hypoxia which persisted despite elimination of respiratory events. Consider ruling out cardiac or pulmonary etiology. 3. Mild periodic limb movements of sleep. RECOMMENDATIONS: 1. CPAP at 18 cm water along with 2 liters of oxygen should be used on a nightly basis. 2. Follow up in 4-6 weeks to assess compliance and to document clinical improvement. 3. Avoid INDUSTRIAL HYGIENE MANAGER depressants. 4. The patient should also be further evaluated for nocturnal hypoxia due to any cardiac or pulmonary etiology. 5. The patient used a medium size full face mask. JOSE CRUZ VELASQUEZ MD DR: AYLEEN/sanchez JOB#: [id number] / [id number] CAROLINE Rodríguez MD, SABATO MD MTDD
== END | disposition home or self-care (01) ==
LOC: RT 18:30
PROVIDERS: ATTEND Internal Medicine Pulmonary Disease
DX: G47.33 Obstructive sleep apnea (adult) (pediatric) (principal); G47.34 Idiopathic sleep related nonobstructive alveolar hypoventilation; G47.61 Periodic limb movement disorder
CPT/HCPCS: 95811

== ENCOUNTER → 2018-10-21 | Outpatient (CLI) | payer OTHER ==
[~2018-10-21] MED LIST changes: -ZOLPIDEM 5 MG TABLET. PO ONE
[2018-10-21 13:15] LABS: BASO # 0.1 x10^3/uL (0.0-0.2); BASO % 1 % (0-3); EOS # 0.2 x10^3/uL (0.0-0.7); EOS % 2 % (0-3); LYMPH % 14 % (24-48); MEAN CORPUSCULAR HEMOGLOBIN 31 pg (25-35); MEAN CORPUSCULAR HGB CONC 33 g/dL (31-37); MEAN CORPUSCULAR VOLUME 94 fL (79-100); MONO # 0.7 x10^3/uL (0.0-1.1); MONO % 9 % (0-9); NEUT # 5.4 x10^3uL (1.8-7.7); NEUT % 74 % (31-73); PLATELET COUNT 251 x10^3/uL (140-400); RED BLOOD COUNT 4.46 x10^6/uL (3.50-5.40); RED CELL DISTRIBUTION WIDTH 12.5 % (11.5-14.5); WHITE BLOOD COUNT 7.3 x10^3/uL (4.0-11.0)
[2018-10-21 13:35] LABS: ALBUMIN 3.6 g/dL (3.4-5.0); ALBUMIN/GLOBULIN RATIO 0.9 (1.0-1.7); CALCIUM 9.5 mg/dL (8.5-10.1); CHOLESTEROL/HDL RATIO 2.6; CREATININE 0.8 mg/dL (0.6-1.0); GFR 87.1; POTASSIUM 3.2 mmol/L (3.5-5.1); TOTAL BILIRUBIN 0.8 mg/dL (0.2-1.0); TOTAL PROTEIN 7.7 g/dL (6.4-8.2)
== END | disposition home or self-care (01) ==
LOC: LAB 12:47
PROVIDERS: ATTEND Internal Medicine
DX: I10 Essential (primary) hypertension (principal); E78.2 Mixed hyperlipidemia
CPT/HCPCS: 36415; 80053; 80061; 82550; 84443; 85025

== ENCOUNTER 2018-11-02 19:58 | Emergency (ER) | payer OTHER, MEDICARE ==
[~2018-11-02] VITALS: Ht 162.6 cm; Wt 65.3 kg
--- NOTE | 2018-11-02 20:19 | PHYS DOC ---
Past Medical History Past Medical History: Arrhythmia, CAD, CHF, COPD, High Cholesterol, Hypertension, Other Additional Past Medical Histor: RA, CARPEL TUNNEL LEFT WRIST, PACEMAKER,SLEEP APNEA Past Surgical History: Hysterectomy, Pacemaker, Tonsillectomy, Other Additional Past Surgical Histo: RIGHT HAND,RIGHT LUNG LOBECTOMY Alcohol Use: None Drug Use: None Adult General Chief Complaint Chief Complaint: SHORTNESS OF BREATH HPI HPI Patient is a 63 year old female with history of chronic respiratory failure on oxygen, COPD, CAD, congestive heart failure, hypertension, cardiac arrhythmia with pacemaker placement presents with rest of shortness of breath over the past 24 hours. Patient has chronic productive cough. Patient wears 5 L of oxygen at baseline. States she is normally able to perform all her activities of daily living and running errands outdoors without be limited due to shortness of breath. Today, the patient was able to get up and get around her apartment did felt associated take breaks more often. She denies fever chills, nausea vomiting or sweats. She denies chest pain but reports chest tightness. Does report recent increase in outdoor activities in the past 48 hours. Patient has been attending a family member who is in hospitalist and 2 days ago. Heat index has greater than 95 over the past 24 hours. No other acute symptoms or complaints. Patient is a former smoker who quit over 20 years ago..[] Review of Systems Review of Systems Review symptoms as per schedule. All other review symptoms are negative. All other systems were reviewed and found to be within normal limits, except as documented in this note. Current Medications Current Medications Current Medications Medications (Trade) Dose Ordered Sig/Riccardo Start Time Stop Time Status Last Admin Dose Admin Albuterol Sulfate (Ventolin Neb Soln) 10 mg 1X ONCE 11/02/18 21:00 11/02/18 21:01 DC 11/02/18 21:00 10 MG Clonidine HCl (Catapres) 0.2 mg 1X ONCE 11/02/18 21:00 11/02/18 21:01 DC 11/02/18 21:00 0.2 MG Furosemide (Lasix) 20 mg 1X ONCE 11/03/18 01:00 11/03/18 01:01 DC 11/03/18 01:00 20 MG Info (CONTRAST GIVEN -- Rx MONITORING) 1 each PRN DAILY PRN 11/02/18 22:45 11/04/18 22:44 Iohexol (Omnipaque 350 Mg/ml) 90 ml 1X ONCE 11/02/18 22:45 11/02/18 22:46 DC 11/02/18 23:03 90 ML Ipratropium [place] (Atrovent) 1 mg 1X ONCE 11/02/18 21:00 11/02/18 21:01 DC 11/02/18 21:00 1 MG Methylprednisolone Sodium Succinate (SOLU-Medrol 125MG VIAL) 62.5 mg 1X ONCE 11/02/18 21:00 11/02/18 21:01 DC 11/02/18 21:00 62.5 MG Allergies Allergies Allergies Coded Allergies Type Severity Reaction Last Updated Verified Penicillins Allergy Intermediate RASH AND ITCHING 02/19/15 Yes YADI Inhibitors Adverse Reaction Intermediate COUGH 02/19/15 Yes Physical Exam Physical Exam Constitutional: Well developed, well nourished, no acute distress, non-toxic appearance. [] HENT: Normocephalic, atraumatic, bilateral external ears normal, oropharynx moist, no oral exudates, nose normal. [] Eyes: PERRLA, EOMI, conjunctiva normal, no discharge. [] Neck: Normal range of motion, no tenderness, supple, no stridor. [] Cardiovascular:Heart rate regular rhythm, no murmur. Negative Homans signs. [] Lungs & Thorax: Moderate tachypnea with pursed lip breathing, significantly diminished breath sounds bilaterally, no rales rhonchi or wheezes auscultated. Symptom complete sentences.[] Abdomen: Bowel sounds normal, soft, no tenderness, no masses, no pulsatile masses. [] Skin: Warm, dry, no erythema, no rash. [] Back: No tenderness, no CVA tenderness. [] Extremities: No tenderness, no edema. [] Neurologic: Alert and oriented X 3, normal motor function, normal sensory function, no focal deficits noted. [] Psychologic: Affect normal, judgement normal, mood normal. [] Current Patient Data Vital Signs Vital Signs Date Time Temp Pulse Resp B/P (MAP) Pulse Ox O2 Delivery O2 Flow Rate FiO2 11/03/18 00:00 92 20 140/95 (110) 97 Nasal Cannula 5.0 11/02/18 20:05 98.9 98.9 Lab Values Laboratory Tests Test 11/02/18 20:21 White Blood Count 4.8 x10^3/uL (4.0-11.0) Red Blood Count 4.49 x10^6/uL (3.50-5.40) Hemoglobin 14.0 g/dL (12.0-15.5) Hematocrit 41.8 % (36.0-47.0) Mean Corpuscular Volume 93 fL (79-100) Mean Corpuscular Hemoglobin 31 pg (25-35) Mean Corpuscular Hemoglobin Concent 33 g/dL (31-37) Red Cell Distribution Width 12.6 % (11.5-14.5) Platelet Count 234 x10^3/uL (140-400) Neutrophils (%) (Auto) 60 % (31-73) Lymphocytes (%) (Auto) 26 % (24-48) Monocytes (%) (Auto) 9 % (0-9) Eosinophils (%) (Auto) 4 % (0-3) H Basophils (%) (Auto) 1 % (0-3) Neutrophils # (Auto) 2.8 x10^3uL (1.8-7.7) Lymphocytes # (Auto) 1.2 x10^3/uL (1.0-4.8) Monocytes # (Auto) 0.4 x10^3/uL (0.0-1.1) Eosinophils # (Auto) 0.2 x10^3/uL (0.0-0.7) Basophils # (Auto) 0.0 x10^3/uL (0.0-0.2) Sodium Level 141 mmol/L (136-145) Potassium Level 3.9 mmol/L (3.5-5.1) Chloride Level 103 mmol/L (98-107) Carbon Dioxide Level 33 mmol/L (21-32) H Anion Gap 5 (6-14) L Blood Urea Nitrogen 10 mg/dL (7-20) Creatinine 0.8 mg/dL (0.6-1.0) Estimated GFR (Cockcroft-Gault) 87.1 BUN/Creatinine Ratio 13 (6-20) Glucose Level 99 mg/dL (70-99) Calcium Level 9.3 mg/dL (8.5-10.1) Total Bilirubin 0.6 mg/dL (0.2-1.0) Aspartate Amino Transferase (AST) 20 U/L (15-37) Alanine Aminotransferase (ALT) 21 U/L (14-59) Alkaline Phosphatase 82 U/L (46-116) Troponin I Quantitative < 0.017 ng/mL (0.000-0.055) GP-Ijt-N-Type Natriuretic Peptide 261 pg/mL (0-124) H Total Protein 7.8 g/dL (6.4-8.2) Albumin 3.5 g/dL (3.4-5.0) Albumin/Globulin Ratio 0.8 (1.0-1.7) L Laboratory Tests 11/02/18 20:21 Laboratory Tests 11/02/18 20:21 EKG EKG [EKG: Sinus rhythm, intraventricular conduction block.] Radiology/Procedures Radiology/Procedures [CTA chest: No pulmonary embolus, multiple pulmonary nodules ] Course & Med Decision Making Course & Med Decision Making Pertinent Labs and Imaging studies reviewed. (See chart for details) [Dyspnea predominately caused by COPD exacerbation. Symptoms improved with steroids and SVN in the emergency department. No evidence of PE on CTA chest. There does appear to be a component of CHF. Diuretic given. Patient offered hospital admission which she declines. Close PCP/pulmonology follow up recommended. Return precautions reviewed. Patient verbalizes understanding agreement discharge instructions prior to departure Dragon Disclaimer Dragon Disclaimer This electronic medical record was generated, in whole or in part, using a voice recognition dictation system. Departure Departure Impression: Primary Impression: COPD exacerbation Additional Impression: Pulmonary edema Disposition: 01 HOME, SELF-CARE Condition: IMPROVED Referrals: CAROLINE EATON MD (PCP) Patient Instructions: Chronic Obstructive Pulmonary Disease Exacerbation Additional Instructions: Please stay in doors in an air-conditioned environment. Take steroids as directed and use albuterol inhaler treatments every 2-3 hours as needed while awake. Continue diuretic for the next 2 days. Follow-up with your monorail helper in the office early next week. Return to the ED if new or worsening symptoms Scripts Furosemide (LASIX) 20 Mg Tablet 1 TAB PO DAILY, #3 TAB 1 Refill Prov: JR SHAFFER DO 11/03/18 Prednisone (PREDNISONE) 50 Mg Tablet 1 TAB PO DAILY, #5 TAB Prov: JR SHAFFER DO 11/03/18 Albuterol Sulfate (Proventil Hfa) 6.7 Gm Hfa.aer.ad 2 PUFF IH Q4-6HRS PRN for WHEEZING MDD 6 puff for 7 Days, #1 INHALER Prov: JR SHAFFER DO 11/03/18 Problem Qualifiers JR SHAFFER DO Nov 02, 2018 20:18
[2018-11-02 20:32] LABS: BASO % 1 % (0-3); EOS # 0.2 x10^3/uL (0.0-0.7); EOS % 4 % (0-3); HEMATOCRIT 41.8 % (36.0-47.0); LYMPH # 1.2 x10^3/uL (1.0-4.8); LYMPH % 26 % (24-48); MEAN CORPUSCULAR HEMOGLOBIN 31 pg (25-35); MEAN CORPUSCULAR HGB CONC 33 g/dL (31-37); MEAN CORPUSCULAR VOLUME 93 fL (79-100); MONO # 0.4 x10^3/uL (0.0-1.1); MONO % 9 % (0-9); NEUT # 2.8 x10^3uL (1.8-7.7); NEUT % 60 % (31-73); PLATELET COUNT 234 x10^3/uL (140-400); RED BLOOD COUNT 4.49 x10^6/uL (3.50-5.40); RED CELL DISTRIBUTION WIDTH 12.6 % (11.5-14.5); WHITE BLOOD COUNT 4.8 x10^3/uL (4.0-11.0)
[2018-11-02 20:42] LABS: CALCIUM 9.3 mg/dL (8.5-10.1); CREATININE 0.8 mg/dL (0.6-1.0); GFR 87.1; POTASSIUM 3.9 mmol/L (3.5-5.1)
[2018-11-02 20:48] LABS: ALBUMIN 3.5 g/dL (3.4-5.0); ALBUMIN/GLOBULIN RATIO 0.8 (1.0-1.7); TOTAL BILIRUBIN 0.6 mg/dL (0.2-1.0); TOTAL PROTEIN 7.8 g/dL (6.4-8.2)
[2018-11-02] MEDS ORDERED: methylPREDNISolone SOD SUCC PF 125 MG/2 ML VIAL. IV ONE (21:00)
[2018-11-02] MEDS ORDERED: IPRATROPIUM BROMIDE 0.5 MG/2.5 ML NEBU. NEB ONE (21:00)
[2018-11-02] MEDS ORDERED: cloNIDine HCL 0.1 MG TABLET PO ONE (21:00)
[2018-11-02] MEDS ORDERED: ALBUTEROL SULFATE 2.5 MG/3 ML NEBU. CONT NEB ONE (21:00)
[2018-11-02] MEDS ORDERED: CEFD300C PO (21:28)
[2018-11-02] MEDS ORDERED: IOHEXOL 350 MG/ML 100 ML VIAL. IV ONE (22:45)
[2018-11-02] MEDS ORDERED: CONTRAST GIVEN. MC PRN (22:45)
--- NOTE | 2018-11-02 23:26 | RAD ---
AP portable chest radiograph 11/02/2018 Clinical History: Chest pain since earlier today. An AP erect portable digital radiograph of the chest was obtained. Comparison study is dated 06/28/2018. A pacemaker is unchanged in position. Surgical clips overlie the right lower lobe, unchanged. The cardiac silhouette is normal in size. The thoracic aorta is tortuous. Atherosclerotic calcification of the thoracic aorta is seen. Nodular opacities are seen involving both lungs, unchanged. No acute pulmonary infiltrate is seen. No pleural effusion or pneumothorax is noted. The osseous structures are unchanged. Impression: No acute abnormality is seen. Electronically signed by: Atif Bergeron MD (11/02/2018 11:24 PM) [facility]
--- NOTE | 2018-11-02 23:37 | RAD ---
CTA scan of the Chest with Contrast (Pulmonary Embolism protocol) 11/02/2018 Clinical History: Shortness of breath. Chest pain. Technique: After the intravenous administration of 90 cc of Omnipaque 350, contiguous, 0.625 mm axial sections were obtained through the chest. 2 mm axial and 3D MIP coronal and sagittal reconstructed images were obtained. One or more of the following individualized dose reduction techniques were utilized for this study: 1. Automated exposure control. 2. Adjustment of the mA and/or kV according to patient size. 3. Use of iterative reconstruction technique. Findings: Comparison is made to a CT scan of the chest dated 07/09/2017. A left-sided pacemaker is unchanged. No filling defect is seen within the major branches of either pulmonary artery. There is no CT evidence of pulmonary embolism. The heart is mildly enlarged. Atherosclerotic calcification of the thoracic aorta and its branches is seen. The thoracic aorta is tortuous but tapers normally. Calcified mediastinal and right hilar lymph nodes are seen. Several calcified and noncalcified pulmonary nodules are seen which measure 3 mm to 2.3 cm in size. The majority of these have not significantly changed since the previous study. Several new nodules are seen involving both upper lobes which measure 3 to 9 mm in size. Multiple patchy areas of groundglass attenuation are seen throughout both lungs which could reflect areas of pulmonary edema. No pleural effusion or pneumothorax is seen. Impression: There is no CT evidence of pulmonary embolism. Electronically signed by: Atif Bergeron MD (11/02/2018 11:34 PM) [facility]
[2018-11-03] MEDS ORDERED: FUROSEMIDE 20 MG/2 ML VIAL. IVP ONE (01:00)
[2018-11-03] MEDS ORDERED: FURO-69 PO (02:15)
[2018-11-03] MEDS ORDERED: PRED50TA PO (02:15)
[2018-11-03] MEDS ORDERED: PROVENTIL HFA6.7 G2 IH (02:15)
[2018-11-03 02:18] VITALS: BP 126/68
--- NOTE | 2018-11-03 15:32 | EKG ---
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
== END 2018-11-03 02:35 | disposition home or self-care (01) ==
LOC: ER 19:58
DX: J44.1 Chronic obstructive pulmonary disease with (acute) exacerbation (principal); J81.1 Chronic pulmonary edema; I11.0 Hypertensive heart disease with heart failure; I50.9 Heart failure, unspecified; I25.10 Atherosclerotic heart disease of native coronary artery without angina pectoris; E78.00 Pure hypercholesterolemia, unspecified; Z95.0 Presence of cardiac pacemaker; I45.4 Nonspecific intraventricular block; Z88.0 Allergy status to penicillin; Z88.8 Allergy status to other drugs, medicaments and biological substances
CPT/HCPCS: 36415; 36600; 71045; 71275; 80053; 83880; 84484; 85025; 93005; 94640; 96374; 96375; 99285; J1940; J2930; J7613; J7644; Q9967

== ENCOUNTER → 2018-12-09 | Outpatient (CLI) | payer OTHER ==
[~2018-12-09] MED LIST changes: +CEFD300C PO; +FURO-69 PO; +PRED50TA PO; +PROVENTIL HFA6.7 G2 IH
[2018-12-09 10:57] LABS: CALCIUM 9.3 mg/dL (8.5-10.1); CREATININE 0.8 mg/dL (0.6-1.0); GFR 87.1; POTASSIUM 3.7 mmol/L (3.5-5.1)
== END | disposition home or self-care (01) ==
LOC: LAB 10:27
PROVIDERS: ATTEND Internal Medicine
DX: E87.6 Hypokalemia (principal)
CPT/HCPCS: 36415; 80048

== ENCOUNTER → 2019-01-13 | Outpatient (CLI) | payer MEDICARE, OTHER ==
[2018-12-29 11:00] VITALS: BP 130/84
[~2019-01-13] MED LIST changes: +BUDE10.2 IH; +DIPH25CA58 PO; +LOSA-73 PO; +POTA10TA12 PO; +SODI44SP NS
[2019-01-13 12:26] LABS: ALBUMIN 3.4 g/dL (3.4-5.0); ALBUMIN/GLOBULIN RATIO 0.8 (1.0-1.7); CALCIUM 9.5 mg/dL (8.5-10.1); CREATININE 0.8 mg/dL (0.6-1.0); GFR 87.1; POTASSIUM 4.1 mmol/L (3.5-5.1); TOTAL BILIRUBIN 0.6 mg/dL (0.2-1.0); TOTAL PROTEIN 7.6 g/dL (6.4-8.2)
== END | disposition home or self-care (01) ==
LOC: LAB 11:41
PROVIDERS: ATTEND Internal Medicine
DX: E87.6 Hypokalemia (principal)
CPT/HCPCS: 36415; 80053

== ENCOUNTER → 2019-02-03 | Outpatient (CLI) | payer OTHER ==
[2018-12-29 11:00] VITALS: BP 130/84
--- NOTE | 2019-02-03 14:33 | KCIC ---
EXAM: Dual energy x-ray absorptiometry (DEXA). HISTORY: Postmenopausal female presents for osteoporosis screening. COMPARISON: None. TECHNIQUE: Dual energy x-ray absorptiometry of the lumbar spine and left hip was performed. Calculation of bone mineral density based on standard deviations above or below the expected young adult normal value (T-score) was completed. FINDINGS: The average bone mineral density in the 1st through 4th lumbar vertebrae is 1.013 g/cmxcm, corresponding with a T-score of -0.3. The average total bone mineral density in the left hip is 0.791 g/cmxcm, corresponding with a T-score of -1.2. IMPRESSION: 1. Normal bone mineral density measured at the lumbar spine. 2. Osteopenia measured at the left hip. Note: Definitions established by the World Health Organization: 1. Normal: T-score is -1.0 or above. 2. Osteopenia: T-score is between -1.0 and -2.5 . 3. Osteoporosis: T-score is -2.5 or below. Electronically signed by: Laura Gomez MD (02/03/2019 2:30 PM) [place] [id number]
--- NOTE | 2019-02-03 16:31 | KCIC ---
Bilateral digital screening mammograms with 3-D tomosynthesis: Reason for examination: Routine screening. New baseline. Bilateral mammograms in CC and oblique projections were obtained with 2-D imaging and 3-D tomosynthesis imaging on a [employer] Inspiration unit and reviewed on the workstation. Interpretation was made with the benefit of CAD. The skin and nipples show no abnormalities. No abnormal axillary lymph nodes are seen. The breast parenchyma is predominantly fatty. (Breast density: Category A.) There is some nodular asymmetry in the retroareolar position of the right breast as well as some asymmetric parenchymal density at the 10:00 B position of the right breast. Recommend further evaluation with coned compression views in CC and lateral projections and with right breast ultrasound evaluation. There are no suspicious calcifications seen. IMPRESSION: Nodular asymmetry in the retroareolar position of the right breast and asymmetric parenchymal density at the 10:00 B position of the right breast. Recommend further evaluation with additional coned compression views and ultrasound. BI-RAD Category 0: Incomplete. Needs additional imaging evaluation. "Our facility is accredited by the [employer] Mammography Program." This patient's information has been entered into a reminder system for the patient to be notified with the results of her examination and a target date for the next mammogram. Electronically signed by: Elvia Baez MD (02/03/2019 4:28 PM) [id number]
== END | disposition home or self-care (01) ==
LOC: KCIC DEXA 13:46
PROVIDERS: ATTEND Internal Medicine
DX: Z13.820 Encounter for screening for osteoporosis (principal); Z12.31 Encounter for screening mammogram for malignant neoplasm of breast; M81.0 Age-related osteoporosis without current pathological fracture; N64.89 Other specified disorders of breast
CPT/HCPCS: 77063; 77067; 77080

== ENCOUNTER → 2019-04-14 | Outpatient (CLI) | payer OTHER ==
[2018-12-29 11:00] VITALS: BP 130/84
[~2019-04-14] MED LIST changes: -POTA10TA12 PO; +POTASSIUM CHLO10 ME1 PO; +SIMV40TA18 PO; -SIMV40TA3 PO
[2019-04-14 12:15] LABS: BASO # 0.1 x10^3/uL (0.0-0.2); BASO % 1 % (0-3); EOS # 0.3 x10^3/uL (0.0-0.7); EOS % 3 % (0-3); HEMATOCRIT 42.2 % (36.0-47.0); HEMOGLOBIN 13.9 g/dL (12.0-15.5); LYMPH # 1.2 x10^3/uL (1.0-4.8); LYMPH % 14 % (24-48); MEAN CORPUSCULAR HEMOGLOBIN 31 pg (25-35); MEAN CORPUSCULAR HGB CONC 33 g/dL (31-37); MEAN CORPUSCULAR VOLUME 94 fL (79-100); MONO # 0.6 x10^3/uL (0.0-1.1); MONO % 7 % (0-9); NEUT # 6.2 x10^3/uL (1.8-7.7); NEUT % 75 % (31-73); PLATELET COUNT 234 x10^3/uL (140-400); RED BLOOD COUNT 4.48 x10^6/uL (3.50-5.40); RED CELL DISTRIBUTION WIDTH 13.3 % (11.5-14.5); WHITE BLOOD COUNT 8.2 x10^3/uL (4.0-11.0)
[2019-04-14 12:44] LABS: ALBUMIN 3.5 g/dL (3.4-5.0); ALBUMIN/GLOBULIN RATIO 0.9 (1.0-1.7); CALCIUM 9.5 mg/dL (8.5-10.1); GFR 67.3; POTASSIUM 3.1 mmol/L (3.5-5.1); TOTAL BILIRUBIN 0.7 mg/dL (0.2-1.0); TOTAL PROTEIN 7.3 g/dL (6.4-8.2)
[2019-04-14 12:51] LABS: CHOLESTEROL/HDL RATIO 2.6
[2019-04-15 02:08] LABS: HEMOGLOBIN A1C 5.5 % (4.8-5.6)
== END | disposition home or self-care (01) ==
LOC: LAB 11:39
PROVIDERS: ATTEND Internal Medicine
DX: I10 Essential (primary) hypertension (principal); J20.9 Acute bronchitis, unspecified; E78.2 Mixed hyperlipidemia; R73.09 Other abnormal glucose
CPT/HCPCS: 36415; 80053; 80061; 82550; 83036; 85025

== ENCOUNTER 2019-05-05 06:51 | Outpatient (CLI) | payer OTHER ==
[2019-05-05] VITALS (8 sets, daily range): BP systolic 128–170; BP diastolic 72–92
[~2019-05-05] VITALS: Ht 162.6 cm; Wt 67.6 kg
[2019-05-05] MEDS ORDERED: BACITRACIN 50,000 UNIT in IV NORMAL SALINE 250ML 250 ML IRR ONE (07:15)
[2019-05-05] MEDS ORDERED: LIDOCAINE 2%/EPI 1:100,000 20 ML VIAL. ONE (07:41)
--- NOTE | 2019-05-05 07:51 | EKG ---
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
[2019-05-05 07:53] LABS: HEMATOCRIT 41.2 % (36.0-47.0); HEMOGLOBIN 13.5 g/dL (12.0-15.5); RED BLOOD COUNT 4.32 x10^6/uL (3.50-5.40); RED CELL DISTRIBUTION WIDTH 13.2 % (11.5-14.5); WHITE BLOOD COUNT 6.8 x10^3/uL (4.0-11.0)
[2019-05-05] MEDS ORDERED: MIDAZOLAM HCL/PF 2 MG/2 ML VIAL. ONE ×2 (08:04→09:19)
[2019-05-05] MEDS ORDERED: fentaNYL PF VIAL 100 MCG/2 ML VIAL ONE (08:04)
[2019-05-05 08:05] LABS: PROTHROMBIN TIME PATIENT 13.5 SEC (11.7-14.0)
[2019-05-05] MEDS ORDERED: VANCOMYCIN 1GM IVPB FOR OMNI 250 ML IV ONE (08:15)
[2019-05-05] MEDS ORDERED: fentaNYL PF VIAL 100 MCG/2 ML VIAL IV ONE (08:15)
[2019-05-05] MEDS ORDERED: LIDOCAINE 2%/EPI 1:100,000 20 ML VIAL. IJ ONE (08:15)
[2019-05-05] MEDS ORDERED: MIDAZOLAM HCL/PF 2 MG/2 ML VIAL. IV ONE (08:15)
[2019-05-05] MEDS ORDERED: VANCOMYCIN 1GM IVPB FOR OMNI 250 ML ONE (08:18)
[2019-05-05] MEDS ORDERED: LOSA25TA54 PO (08:22)
[2019-05-05] MEDS ORDERED: ASPI-630 PO (08:22)
[2019-05-05] MEDS ORDERED: DOCU-109 PO (08:22)
[2019-05-05] MEDS ORDERED: CHOL200027 PO (08:22)
[2019-05-05] MEDS ORDERED: MULT-505 PO (08:22)
[2019-05-05] MEDS ORDERED: POTA10TA6 PO (08:22)
[2019-05-05 08:23] LABS: CALCIUM 9.2 mg/dL (8.5-10.1); CREATININE 0.9 mg/dL (0.6-1.0); POTASSIUM 3.7 mmol/L (3.5-5.1)
--- NOTE | 2019-05-05 08:46 | PDOC ---
MODERATE SEDATION ASSESSMENT RISKS/ALTERNATIVES Risks/Alternatives Risks and alternatives of this type of sedation and procedure discussed with: RISK/ALTERNATIVES: Patient H & P ON CHART H & P H & P on chart and reviewed for co-morbid conditions and appropriate labs. H&P ON CHART: Yes STATUS PREG STATUS ASSESSED: N/A MEDS/ALLERGIES REVIEWED Meds/Allergies Reviewed Medications and Allergies including time and route of recently administered narcotics and sedatives. MEDS/ALLERGIES REVIEWED: Yes ASA RATING ASA RATING: II AIRWAY ASSESSMENT Airway Assessment Airway patency, oral function limitations, presence of caps, crowns, dentures, partials, and ability to extend neck assessed. AIRWAY ASSESSMENT: Yes MALLAMPATI SCORE MALLAMPATI SCORE: II PRE-SEDATION ASSESSMENT PRE-SEDATION ASSESSMENT: Yes TYE DUMONT MD May 05, 2019 08:46
[2019-05-05] MEDS ORDERED: ACETAMINOPHEN 325 MG TABLET. PO PRN (09:45)
[2019-05-05] MEDS ORDERED: NO ANTICOAGULANT THERAPY. MC PRN (09:45)
--- NOTE | 2019-05-05 09:55 | CARD ---
MR#: [id number] Date of Study: 05/05/2019 Ordering Physician: GARRETT JOSUE, Referring Physician: GARRETT JOSUE, Tech: APPROVED REPORT PROCEDURES Medtronic dual-chamber permanent pacemaker generator change Flouro Time: 0.0 min Dose: 0.08 Gycm2 SedationTime: 40 min INDICATIONS Complete heart block s/p permanent pacemaker implantation presenting with battery depletion PROCEDURE After explaining the risks, benefits, and alternative options, informed consent was obtained from the patient. The patient was brought to the cardiac catheterization lab and the left chest and shoulder were prepp ed and draped in a sterile manner. 20 mL of 2% lidocaine was infiltrated into the skin and subcutaneous tissues for local anesthesia. An incision was made over the previous scar and using blunt dissection and cautery, the pocket was open ed, the capsule exposed and opened and the previously placed generator removed from the pocket. The l kyaw were detached from the generator, interrogated and found to be functioning well and reattached t o a new Medtronic dual-chamber permanent pacemaker generator model [id number], serial number [id number]. This was placed in the pocket that was subsequently closed in 3 layers. Hemostasis was secured. Patie nt tolerated the procedure well. There were no immediate complications. CONCLUSION Successful Medtronic dual-chamber permanent pacemaker generator change for battery depletion. Signed by : Garrett Josue, Electronically Approved : 05/05/2019 09:55:38
--- NOTE | 2019-05-05 11:54 | NUR ---
Discharge Note: RG GUTIERRES Discharge instructions and discharge home medications reviewed with Patient and a copy given. All questions have been answered and understanding verbalized. The following instructions and handouts were given: moderate sedation, pacemaker battery change, surgical site care. Pacemaker booklet and card given to pt. Discontinued lines and drains: L antecubital IV site DC'd intact. Dressing site to L chest remains dry and intact Patient discharged to home with via wheelchair. GUTIERREZ RN Addendum: 05/05/19 at 1234 by BUSTER PADILLA RN Amended: Links added.
== END 2019-05-05 11:54 | disposition home or self-care (01) ==
LOC: CCL 06:51
PROVIDERS: ATTEND Internal Medicine Cardiovascular Disease
DX: Z45.010 Encounter for checking and testing of cardiac pacemaker pulse generator [battery] (principal); I44.2 Atrioventricular block, complete; Z79.01 Long term (current) use of anticoagulants; Z88.0 Allergy status to penicillin; Z88.8 Allergy status to other drugs, medicaments and biological substances
CPT/HCPCS: 33228; 36415; 80048; 85027; 85610; 85730; 93005; 99152; 99153; C1785; J2250; J3010; J3370; J3490; J7050; 33213; J7030

== ENCOUNTER → 2019-08-02 | Outpatient (CLI) | payer OTHER ==
[2019-05-05 08:00] VITALS: BP 168/92
[~2019-08-02] MED LIST changes: +ASPI-630 PO; +CHOL200027 PO; +MULT-505 PO; +POTA10TA6 PO
[2019-08-02 11:00] LABS: BASO # 0.1 x10^3/uL (0.0-0.2); BASO % 1 % (0-3); EOS # 0.1 x10^3/uL (0.0-0.7); EOS % 1 % (0-3); HEMATOCRIT 42.2 % (36.0-47.0); HEMOGLOBIN 13.6 g/dL (12.0-15.5); LYMPH # 0.5 x10^3/uL (1.0-4.8); LYMPH % 5 % (24-48); MEAN CORPUSCULAR HEMOGLOBIN 30 pg (25-35); MEAN CORPUSCULAR HGB CONC 32 g/dL (31-37); MEAN CORPUSCULAR VOLUME 93 fL (79-100); MONO # 0.3 x10^3/uL (0.0-1.1); MONO % 3 % (0-9); NEUT # 9.2 x10^3/uL (1.8-7.7); NEUT % 91 % (31-73); PLATELET COUNT 351 x10^3/uL (140-400); RED BLOOD COUNT 4.55 x10^6/uL (3.50-5.40); RED CELL DISTRIBUTION WIDTH 12.4 % (11.5-14.5); WHITE BLOOD COUNT 10.1 x10^3/uL (4.0-11.0)
[2019-08-02 11:14] LABS: ALBUMIN 2.9 g/dL (3.4-5.0); ALBUMIN/GLOBULIN RATIO 0.6 (1.0-1.7); CALCIUM 9.5 mg/dL (8.5-10.1); CREATININE 0.8 mg/dL (0.6-1.0); GFR 86.8; POTASSIUM 3.6 mmol/L (3.5-5.1); TOTAL BILIRUBIN 0.6 mg/dL (0.2-1.0)
[2019-08-02 11:52] LABS: % BANDS 2 % (0-9); % LYMPHS 7 % (24-48); % MONOS 1 % (0-10); % SEGS 90 % (35-66); PLT ESTIMATE ADEQUATE (ADEQUATE)
== END ==
LOC: LAB 10:44
PROVIDERS: ATTEND Internal Medicine
DX: N10 Acute pyelonephritis (principal); I10 Essential (primary) hypertension
CPT/HCPCS: 36415; 80053; 85007; 85025

== ENCOUNTER 2019-09-08 09:20 | Inpatient (IN) | payer OTHER, MEDICARE ==
[~2019-09-08] VITALS: Ht 162.6 cm; Wt 68.5 kg
[2019-09-08 10:45] LABS: BASE EXCESS ABG 5 mmol/L (-3-3); HCO3 ABG 32 mmol/L (21-28); PCO2 ABG 58 mmHg (35-46); PO2 ABG 70 mmHg (65-108); SAT O2 ABG 92 % (92-99)
[2019-09-08 10:47] LABS: FIO2 ABG 36%
[2019-09-08 10:59] LABS: CALCIUM 8.8 mg/dL (8.5-10.1); CREATININE 0.9 mg/dL (0.6-1.0); GFR 75.8; POTASSIUM 4.1 mmol/L (3.5-5.1)
[2019-09-08 11:05] LABS: ALBUMIN 2.7 g/dL (3.4-5.0); ALBUMIN/GLOBULIN RATIO 0.7 (1.0-1.7); MAGNESIUM 1.6 mg/dL (1.8-2.4); TOTAL BILIRUBIN 0.7 mg/dL (0.2-1.0); TOTAL PROTEIN 6.6 g/dL (6.4-8.2)
--- NOTE | 2019-09-08 11:05 | RAD ---
EXAM: CHEST 1 VIEW History: Shortness of breath COMPARISON: 12/24/2018 TECHNIQUE: Single portable radiograph of the chest FINDINGS: The cardiac silhouette is unremarkable. Left-sided cardiac pacer is identified. Bilateral pulmonary nodules identified. Small cavitary nodule in the right upper lobe of the lung similar to prior exam. Mild bibasilar airspace opacities likely atelectasis or infiltrates. IMPRESSION: 1. Unchanged bilateral pulmonary nodules. 2. Mild bibasilar lung airspace opacities likely atelectasis or infiltrates. Electronically signed by: Ned Thomas MD (09/08/2019 11:02 AM) [id number]
[2019-09-08 11:14] LABS: BASO # 0.1 x10^3/uL (0.0-0.2); BASO % 1 % (0-3); EOS # 0.2 x10^3/uL (0.0-0.7); EOS % 3 % (0-3); HEMATOCRIT 40.7 % (36.0-47.0); HEMOGLOBIN 12.9 g/dL (12.0-15.5); LYMPH # 0.6 x10^3/uL (1.0-4.8); LYMPH % 8 % (24-48); MEAN CORPUSCULAR HEMOGLOBIN 29 pg (25-35); MEAN CORPUSCULAR HGB CONC 32 g/dL (31-37); MEAN CORPUSCULAR VOLUME 91 fL (79-100); MONO # 0.6 x10^3/uL (0.0-1.1); MONO % 8 % (0-9); NEUT # 5.4 x10^3/uL (1.8-7.7); NEUT % 80 % (31-73); PLATELET COUNT 314 x10^3/uL (140-400); RED BLOOD COUNT 4.46 x10^6/uL (3.50-5.40); RED CELL DISTRIBUTION WIDTH 13.6 % (11.5-14.5); WHITE BLOOD COUNT 6.8 x10^3/uL (4.0-11.0)
--- NOTE | 2019-09-08 12:30 | EKG ---
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
[2019-09-08 12:51] LABS: BILIRUBIN,URINE SMALL (NEG); CLARITY,URINE TURBID; NITRITE,URINE NEGATIVE (NEG); PROTEIN,URINE >=300 mg/dL (NEG-TRACE)
[2019-09-08 12:57] LABS: COLOR,URINE YELLOW
[2019-09-08 12:58] LABS: HYALINE CASTS, URINE MODERATE /HPF; SQUAMOUS EPITHELIAL CELL,UR MOD /LPF
[2019-09-08 12:59] LABS: AMORPHOUS SEDIMENT,UR PRESENT /HPF; BACTERIA,URINE 0 /HPF (0-FEW); RBC,URINE 0 /HPF (0-2)
[2019-09-08] MEDS ORDERED: IOHEXOL 350 MG/ML 100 ML VIAL. IV ONE (13:00)
[2019-09-08] MEDS ORDERED: CONTRAST GIVEN. MC PRN (13:15)
--- NOTE | 2019-09-08 13:53 | RAD ---
CTA Chest with contrast: Clinical History: Shortness of breath. Axial helical images of the chest were obtained after the administration of 100 cc of IV Omni 350 and timed appropriately for a pulmonary arterial study. Conventional axial reconstruction was performed in addition to coronal, sagittal and bilateral oblique MIP (maximum intensity projection). This study was ordered to detect possible pulmonary embolism. FINDINGS: There are no filling defects to suggest pulmonary embolism. There is patchy mosaic groundglass opacities throughout the lungs. There are multiple noncalcified pulmonary nodules scattered throughout the lungs with upper lung predominance. There is a left lower lobe mass that is mildly larger. There are few calcified masses as well. There are calcified granuloma in the mediastinum however there is also multiple mildly enlarged lymph nodes in the mediastinum and raul. There is a noncalcified nodule in the left lower lobe that measures 1.9 x 1.0 cm and is larger. The thoracic aorta appears normal. Impression: 1. No evidence of pulmonary embolism. 2. Diffuse mosaic groundglass opacities nonspecific and could be secondary to pneumonitis. Atypical pneumonia such as viral pneumonia is possible. 3. Multiple pulmonary masses some of which are calcified. Most of the nodules appear stable since the prior examination however there is a mass in the left lower lobe which is mildly larger. This could be primary or metastatic lung cancer. 4. Moderate hilar and mediastinal and mild hilar lymphadenopathy is new and suggests metastatic cancer. End impression PQRS Compliance Statement: One or more of the following individualized dose reduction techniques were utilized for this examination: 1. Automated exposure control 2. Adjustment of the mA and/or kV according to patient size 3. Use of iterative reconstruction technique Electronically signed by: Wallace Jansen III, MD (09/08/2019 1:50 PM) [place] [id number]
--- NOTE | 2019-09-08 13:57 | PHYS DOC ---
Past Medical History Past Medical History: Anxiety, Arrhythmia, CAD, CHF, COPD, High Cholesterol, Hypertension, Other Additional Past Medical Histor: RA, CARPEL TUNNEL LEFT WRIST, PACEMAKER,SLEEP APNEA Past Surgical History: Hysterectomy, Pacemaker, Tonsillectomy, Other Additional Past Surgical Histo: RIGHT HAND,RIGHT LUNG LOBECTOMY Smoking Status: Former Smoker Alcohol Use: None Drug Use: None General Adult EDM: Chief Complaint: SHORTNESS OF BREATH HPI: HPI: Patient is a 64-year-old female with multiple medical problems including coronary disease and COPD who presents with progressive shortness of breath. She states her biggest issue is she has a profound dyspnea on exertion and generalized weakness. She states that it took her more than 20 minutes to get ready today because of shortness of breath and weakness. She denies any fever chills or sweats. She has not had any nausea or vomiting. [] Review of Systems: Review of Systems: Constitutional: Denies fever or chills. [] Eyes: Denies change in visual acuity. [] HENT: Reports some nasal congestion t. [] Respiratory: Per HPI [] Cardiovascular: Denies chest pain or edema. [] GI: Denies abdominal pain, nausea, vomiting, bloody stools or diarrhea. [] : Denies dysuria. [] Musculoskeletal: Denies back pain or joint pain. [] Integument: Denies rash. [] Neurologic: Denies headache, focal weakness or sensory changes. [] Endocrine: Denies polyuria or polydipsia. [] Lymphatic: Denies swollen glands. [] Psychiatric: Reports depression [] Heart Score: Risk Factors: Risk Factors: DM, Current or recent (<one month) smoker, HTN, HLP, family history of CAD, obesity. Risk Scores: Score 0 - 3: 2.5% MACE over next 6 weeks - Discharge Home Score 4 - 6: 20.3% MACE over next 6 weeks - Admit for Clinical Observation Score 7 - 10: 72.7% MACE over next 6 weeks - Early Invasive Strategies Current Medications: Current Medications Medications (Trade) Dose Ordered Sig/Riccardo Start Time Stop Time Status Last Admin Dose Admin Info (CONTRAST GIVEN -- Rx MONITORING) 1 each PRN DAILY PRN 09/08/19 13:15 09/10/19 13:14 Iohexol (Omnipaque 350 Mg/ml) 100 ml 1X ONCE 09/08/19 13:00 09/08/19 13:07 DC 09/08/19 13:25 100 ML Allergies: Allergies: Allergies Coded Allergies Type Severity Reaction Last Updated Verified Penicillins Allergy Intermediate RASH AND ITCHING 12/28/18 Yes YADI Inhibitors Adverse Reaction Intermediate COUGH 12/28/18 Yes Physical Exam: PE: Constitutional: Frail elderly female who appears acutely ill [] HENT: Normocephalic, atraumatic, bilateral external ears normal, oropharynx moist, no oral exudates, nose normal. [] Eyes: PERRLA, EOMI, conjunctiva normal, no discharge. [] Neck: Normal range of motion, no tenderness, supple, no stridor. [] Cardiovascular:Heart rate regular rhythm, no murmur [] Lungs & Thorax: Bilateral breath sounds clear to auscultation [] Abdomen: Bowel sounds normal, soft, no tenderness, no masses, no pulsatile masses. [] Skin: Warm, dry, no erythema, no rash. [] Back: No tenderness, no CVA tenderness. [] Extremities: No tenderness, no cyanosis, no clubbing, ROM intact, no edema. [] Neurologic: Alert and oriented X 3, normal motor function, normal sensory function, no focal deficits noted. [] Psychologic: Depressed. [] Current Patient Data: Labs: Laboratory Tests Test 09/08/19 10:35 09/08/19 10:40 09/08/19 12:37 White Blood Count 6.8 x10^3/uL (4.0-11.0) Red Blood Count 4.46 x10^6/uL (3.50-5.40) Hemoglobin 12.9 g/dL (12.0-15.5) Hematocrit 40.7 % (36.0-47.0) Mean Corpuscular Volume 91 fL (79-100) Mean Corpuscular Hemoglobin 29 pg (25-35) Mean Corpuscular Hemoglobin Concent 32 g/dL (31-37) Red Cell Distribution Width 13.6 % (11.5-14.5) Platelet Count 314 x10^3/uL (140-400) Neutrophils (%) (Auto) 80 % (31-73) H Lymphocytes (%) (Auto) 8 % (24-48) L Monocytes (%) (Auto) 8 % (0-9) Eosinophils (%) (Auto) 3 % (0-3) Basophils (%) (Auto) 1 % (0-3) Neutrophils # (Auto) 5.4 x10^3/uL (1.8-7.7) Lymphocytes # (Auto) 0.6 x10^3/uL (1.0-4.8) L Monocytes # (Auto) 0.6 x10^3/uL (0.0-1.1) Eosinophils # (Auto) 0.2 x10^3/uL (0.0-0.7) Basophils # (Auto) 0.1 x10^3/uL (0.0-0.2) D-Dimer (Annie) 2.01 ug/mlFEU (0.00-0.50) H Sodium Level 143 mmol/L (136-145) Potassium Level 4.1 mmol/L (3.5-5.1) Chloride Level 103 mmol/L (98-107) Carbon Dioxide Level 37 mmol/L (21-32) H Anion Gap 3 (6-14) L Blood Urea Nitrogen 10 mg/dL (7-20) Creatinine 0.9 mg/dL (0.6-1.0) Estimated GFR (Cockcroft-Gault) 75.8 BUN/Creatinine Ratio 11 (6-20) Glucose Level 115 mg/dL (70-99) H Lactic Acid Level 1.2 mmol/L (0.4-2.0) Calcium Level 8.8 mg/dL (8.5-10.1) Magnesium Level 1.6 mg/dL (1.8-2.4) L Total Bilirubin 0.7 mg/dL (0.2-1.0) Aspartate Amino Transferase (AST) 20 U/L (15-37) Alanine Aminotransferase (ALT) 17 U/L (14-59) Alkaline Phosphatase 76 U/L (46-116) Troponin I Quantitative 0.052 ng/mL (0.000-0.055) YO-Ikn-Z-Type Natriuretic Peptide 3256 pg/mL (0-124) H Total Protein 6.6 g/dL (6.4-8.2) Albumin 2.7 g/dL (3.4-5.0) L Albumin/Globulin Ratio 0.7 (1.0-1.7) L O2 Saturation 92 % (92-99) Arterial Blood pH 7.36 (7.35-7.45) Arterial Blood pCO2 at Patient Temp 58 mmHg (35-46) H Arterial Blood pO2 at Patient Temp 70 mmHg (65-108) Arterial Blood HCO3 32 mmol/L (21-28) H Arterial Blood Base Excess 5 mmol/L (-3-3) H FiO2 36% Urine Collection Type Unknown Urine Color Yellow Urine Clarity Turbid Urine pH 6.0 (<5.0-8.0) Urine Specific [place] 1.025 (1.000-1.030) Urine Protein >=300 mg/dL (NEG-TRACE) Urine Glucose (UA) Negative mg/dL (NEG) Urine Ketones (Stick) Negative mg/dL (NEG) Urine Blood Negative (NEG) Urine Nitrite Negative (NEG) Urine Bilirubin Small (NEG) Urine Urobilinogen Dipstick 1.0 mg/dL (0.2 mg/dL) Urine Leukocyte Esterase Small (NEG) Urine RBC 0 /HPF (0-2) Urine WBC 11-20 /HPF (0-4) Urine Squamous Epithelial Cells Mod /LPF Urine Transitional Epithelial Cells Few /LPF Urine Amorphous Sediment Present /HPF Urine Bacteria 0 /HPF (0-FEW) Urine Hyaline Casts Moderate /HPF Urine Mucus Slight /LPF Laboratory Tests 09/08/19 10:35 Laboratory Tests 09/08/19 10:35 Vital Signs: Vital Signs Date Time Temp Pulse Resp B/P (MAP) Pulse Ox O2 Delivery O2 Flow Rate FiO2 09/08/19 11:35 106 158/113 (128) 09/08/19 11:05 92 09/08/19 09:50 98.7 16 Nasal Cannula 5.0 98.7 EKG: EKG: [] Radiology/Procedures: Radiology/Procedures: []PROCEDURE: CHEST AP ONLY EXAM: CHEST 1 VIEW History: Shortness of breath COMPARISON: 12/24/2018 TECHNIQUE: Single portable radiograph of the chest FINDINGS: The cardiac silhouette is unremarkable. Left-sided cardiac pacer is identified. Bilateral pulmonary nodules identified. Small cavitary nodule in the right upper lobe of the lung similar to prior exam. Mild bibasilar airspace opacities likely atelectasis or infiltrates. IMPRESSION: 1. Unchanged bilateral pulmonary nodules. 2. Mild bibasilar lung airspace opacities likely atelectasis or infiltrates. Impression: PROCEDURE: CT ANGIOGRAPHY CHEST CTA Chest with contrast: Clinical History: Shortness of breath. Axial helical images of the chest were obtained after the administration of 100 cc of IV Omni 350 and timed appropriately for a pulmonary arterial study. Conventional axial reconstruction was performed in addition to coronal, sagittal and bilateral oblique MIP (maximum intensity projection). This study was ordered to detect possible pulmonary embolism. FINDINGS: There are no filling defects to suggest pulmonary embolism. There is patchy mosaic groundglass opacities throughout the lungs. There are multiple noncalcified pulmonary nodules scattered throughout the lungs with upper lung predominance. There is a left lower lobe mass that is mildly larger. There are few calcified masses as well. There are calcified granuloma in the mediastinum however there is also multiple mildly enlarged lymph nodes in the mediastinum and raul. There is a noncalcified nodule in the left lower lobe that measures 1.9 x 1.0 cm and is larger. The thoracic aorta appears normal. Impression: 1. No evidence of pulmonary embolism. 2. Diffuse mosaic groundglass opacities nonspecific and could be secondary to pneumonitis. Atypical pneumonia such as viral pneumonia is possible. 3. Multiple pulmonary masses some of which are calcified. Most of the nodules appear stable since the prior examination however there is a mass in the left lower lobe which is mildly larger. This could be primary or metastatic lung cancer. 4. Moderate hilar and mediastinal and mild hilar lymphadenopathy is new and suggests metastatic cancer. Course & Med Decision Making: Course & Med Decision Making Pertinent Labs and Imaging studies reviewed. (See chart for details) [ED course: Evaluation reveals a 64-year-old female who with any exertion at all her oxygen saturation drops into the mid to low 80s. As long as she is wearing supplemental oxygen and taking nice deep breaths and remaining quiet her oxygen level stays in the mid 90s. She is certainly someone who fits with a COVID-[address] scan is classic. We will place her in the hospital for further evaluation and treatment.] Diane Disclaimer: Diane Disclaimer: This electronic medical record was generated, in whole or in part, using a voice recognition dictation system. Departure Departure Impression: Primary Impression: COVID-19 virus infection Additional Impression: Hypoxia Disposition: 09 ADMITTED INPATIENT Admitting Physician: Caroline Eaton Condition: GUARDED Referrals: CAROLINE EATON MD (PCP) JESSICA BOB DO September 08, 2019 13:57
[2019-09-08] MEDS ORDERED: ONDANSETRON PF 4 MG/2 ML VIAL. IV PRN (14:15)
[2019-09-08] MEDS ORDERED: ACETAMINOPHEN 325 MG TABLET. PO PRN ×2 (14:15→16:15)
[2019-09-08] MEDS ORDERED: ENOXAPARIN 40 MG/0.4 ML SYRINGE. SQ SCH (16:15)
[2019-09-08] MEDS ORDERED: ALBUTEROL SULFATE 2.5 MG/3 ML NEBU. NEB PRN (16:30)
[2019-09-08] MEDS: amLODIPine BESYLATE 5 MG TABLET PO SCH ×2 (16:45→17:47)
[2019-09-08] MEDS ORDERED: hydrALAZINE 20 MG/ML VIAL. IVP PRN (16:45)
[2019-09-08] MEDS ORDERED: IPRATRPIUM/ALBUTEROL 0.5/2.5MG 3 ML NEBU. NEB SCH (17:00)
--- NOTE | 2019-09-08 17:04 | PDOC ---
Provider Note Provider Note Patient seen. History and Physical dictated. See dictation# [id number] CAROLINE EATON MD September 08, 2019 17:03
[2019-09-08] MEDS ORDERED: MAGNESIUM SULFATE 2GM 50 ML IV ONE (17:15)
--- NOTE | 2019-09-08 17:33 | HP ---
ADMIT DATE: HISTORY OF PRESENT ILLNESS: This is a 64-year-old -[place] female who is known to have rheumatoid lung disease and was treated previously with steroids for a long time and previously had bronchoscopy with negative workup for any fungal infection including histoplasmosis and has chronic hypoxic respiratory failure with hypercapnia on oxygen by nasal cannula 2 liters per minute at rest and 3 liters per minute with exertion, started getting worse for last 3 days. She became more short of breath and has been weaker. She was tapered off the steroids about [address] Mitchell. The patient denies any fever, cold, chest pains, abdominal pain, diarrhea or constipation. She does complain of slight cough with occasional clear mucus. She denies any vomiting, hematemesis, epistaxis or hemoptysis, but does have frequent nausea. For last 3 days, her oxygen requirements have increased and she is now using 3 liters per minute at rest and 4 liters per minute with exertion. She cannot go above 4 liters because she gets lot of side effects of oxygen including tremors, dizziness, weakness and confusion. Because of her persistent shortness of breath, she came to the emergency room. In the emergency room, the patient was examined. CT scan of chest with contrast showed no evidence of pulmonary embolism, but has diffuse mosaic ground-glass opacities, nonspecific. The patient has previously ground-glass opacities. She has multiple pulmonary masses, some of which are calcified. There is a mass in the left lower lobe. There is mildly larger moderate hilar and mediastinal and mild hilar lymphadenopathy is new and suggest metastatic cancer. Previously, she has been diagnosed with rheumatoid lung disease. WBC count was 6.8, hemoglobin 12.9. ABG revealed pH 7.36, pCO2 of 58 and pO2 of 70 on FiO2 36%. D-dimer is 2.01. Sodium 143, potassium 4.1, BUN 10, creatinine 0.9, glucose 115, magnesium is 1.6, calcium 8.8, albumin 2.7. BNP is 3256. Troponin 0.052, calcium 1.2. Urinalysis is negative except for 11-20 wbc's and 0 bacteria and nitrite negative. Because of the acute on chronic hypoxic respiratory failure and accelerated hypertension, the patient was admitted for further evaluation and management. The patient is also going to be placed in isolation for suspected COVID-19 infection. The patient denies any exposure to anyone with COVID-19 infection and does not have any other significant history including travel. REVIEW OF SYSTEMS: As noted in the history of present illness. The patient does complain of dyspnea, increasing weakness. She denies any fevers, chills or diarrhea. She denies any swelling of the legs. She denies any chest pains or palpitations. Other systems reviewed and are negative. PAST MEDICAL HISTORY: The patient was last admitted here in 12/2018. 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 PAST SURGICAL HISTORY: Last echo showed [id number] pulmonary hypertension, electrolyte imbalance including hypokalemia. She had a permanent pacemaker placed in 2009, right lung resection in 1996 to remove a part of the lump. The right lung resection was likely to treat possible histoplasmosis. The patient has a history of total hysterectomy and wrist fracture in 2013. FAMILY HISTORY: Father had Parkinson's disease. Mother had stroke. There is family history of hypertension, coronary artery disease, and obesity. ALLERGIES: THE PATIENT IS ALLERGIC TO LISINOPRIL, PENICILLIN CAUSES RASH, LISINOPRIL CAUSES COUGH. MEDICATIONS: Reviewed and reconciled. SOCIAL HISTORY: No history of alcoholism or drug abuse. The patient is a former smoker. PHYSICAL EXAMINATION: GENERAL: The patient is an elderly -[place] female who is alert, oriented and in [id number] distress. VITAL SIGNS: Temperature 98.7, respirations 16 per minute, blood pressure 154/111 mmHg. Currently, it is 166/98 mmHg. EYES: Pupils reacting to light. Conjunctivae pale. Sclerae muddy. HENT: Mild congestion of throat. NECK: Supple. JVP normal. No thyromegaly. Trachea midline. LUNGS: Decreased breath sounds bilaterally with moderate tachypnea and mild wheezing, especially at the bases. CARDIOVASCULAR SYSTEM: S1, S2 regular. ABDOMEN: Soft, nontender. No guarding, no rigidity. Bowel sounds present. EXTREMITIES: Trace edema. LABORATORY DATA: Laboratory findings and CT scan as noted earlier. IMPRESSION: 1. Acute on chronic hypoxic respiratory failure with hypercapnia. 2. Possible exacerbation of chronic obstructive pulmonary disease. 3. Rheumatoid lung disease. The patient was recently weaned off prednisone. 4. Diastolic congestive heart failure with ejection fraction of 50%. 5. Coronary artery disease. 6. History of cardiac arrhythmia with cardiac pacemaker. 7. Suspected COVID-19 infection. 8. Moderate pulmonary hypertension. 9. Physical deconditioning. 10. Osteoarthritis. 11. 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 12. Rheumatoid arthritis and rheumatoid lung disease. 13. Hypertension. 14. Hypomagnesemia with magnesium of 1.6. PLAN: The patient is currently hypoxic and is not able to tolerate increasing her oxygen because of the side effects and hypercapnia. I will not start her on steroids at this time because of the suspected COVID-19 infection. We will consult Dr. Clark for pulmonary evaluation and management and Dr. Bae for Infectious Disease evaluation and management. COVID-19 test has been done and the patient has been placed in isolation. Currently, she is in the emergency room, awaiting for bed placement. For details, please refer to the orders. Because of the accelerated hypertension, I will add amlodipine 5 mg daily and also started on p.r.n. IV hydralazine. Prognosis of this patient is very poor due to her multiple medical problems. Because of the lymphadenopathy, consideration will be given to metastatic lung cancer, but previously the product sales representative had stated that she did not appear to have metastatic lung cancer. For details, please refer to the orders. CAROLINE EATON MD DR: HANNA/sanchez JOB#: [id number] / [id number]
[2019-09-08 18:47] VITALS: BP 153/98
--- NOTE | 2019-09-08 18:59 | NUR ---
patient admitted to room 671. tele monitor placed. vss. oriented to room and call light.
[2019-09-08 20:00] VITALS: BP 147/96
[2019-09-08] MEDS ORDERED: BUDESONIDE 0.5 MG/2 ML NEBU. NEB PRN (20:00)
[2019-09-08] MEDS: METOPROLOL TART IMMED RELEASE 25 MG TABLET. PO SCH (20:17)
[2019-09-08] MEDS: ATORVASTATIN CALCIUM 10 MG TABLET. PO SCH (20:17)
[2019-09-08] MEDS: ENOXAPARIN 40 MG/0.4 ML SYRINGE. SQ SCH (20:17)
[2019-09-08] MEDS ORDERED: SIMVASTATIN 40 MG TABLET. PO SCH (21:00)
[2019-09-08] MEDS: traMADol 50 MG TABLET PO PRN (21:13)
[2019-09-08 23:00] VITALS: BP 145/82
[2019-09-09 03:15] VITALS: BP 136/78
[2019-09-09 05:51] LABS: BASO # 0.1 x10^3/uL (0.0-0.2); BASO % 1 % (0-3); EOS # 0.3 x10^3/uL (0.0-0.7); EOS % 5 % (0-3); HEMATOCRIT 37.5 % (36.0-47.0); HEMOGLOBIN 11.9 g/dL (12.0-15.5); LYMPH # 0.7 x10^3/uL (1.0-4.8); LYMPH % 14 % (24-48); MEAN CORPUSCULAR HEMOGLOBIN 29 pg (25-35); MEAN CORPUSCULAR HGB CONC 32 g/dL (31-37); MEAN CORPUSCULAR VOLUME 92 fL (79-100); MONO # 0.5 x10^3/uL (0.0-1.1); MONO % 10 % (0-9); NEUT # 3.9 x10^3/uL (1.8-7.7); NEUT % 71 % (31-73); PLATELET COUNT 277 x10^3/uL (140-400); RED BLOOD COUNT 4.06 x10^6/uL (3.50-5.40); RED CELL DISTRIBUTION WIDTH 13.7 % (11.5-14.5); WHITE BLOOD COUNT 5.5 x10^3/uL (4.0-11.0)
[2019-09-09 06:05] LABS: ALBUMIN 2.4 g/dL (3.4-5.0); ALBUMIN/GLOBULIN RATIO 0.6 (1.0-1.7); CALCIUM 8.6 mg/dL (8.5-10.1); CREATININE 0.8 mg/dL (0.6-1.0); GFR 86.8; MAGNESIUM 1.7 mg/dL (1.8-2.4); POTASSIUM 4.2 mmol/L (3.5-5.1); TOTAL BILIRUBIN 0.4 mg/dL (0.2-1.0); TOTAL PROTEIN 6.4 g/dL (6.4-8.2)
--- NOTE | 2019-09-09 07:18 | NUR ---
Left SMS message since unable to leave message on phone.
[2019-09-09 07:45] VITALS: BP 140/77
[2019-09-09] MEDS: POTASSIUM CHLORIDE 10 MEQ TABLET.ER. PO SCH ×2 (09:18→16:41)
[2019-09-09] MEDS: ASPIRIN CHEWABLE 81 MG TABLET. PO SCH (09:18)
[2019-09-09] MEDS: CHOLECALCIFEROL (VITAMIN D3) 1,000 UNIT TABLET PO SCH (09:19)
[2019-09-09] MEDS: hydroCHLOROthiazide 12.5 MG CAPSULE PO SCH (09:19)
[2019-09-09] MEDS: METOPROLOL TART IMMED RELEASE 25 MG TABLET. PO SCH ×2 (09:19→21:36)
[2019-09-09] MEDS: LOSARTAN POTASSIUM 25 MG TABLET. PO SCH (09:19)
[2019-09-09] MEDS: amLODIPine BESYLATE 5 MG TABLET PO SCH (09:19)
[2019-09-09] MEDS: MULTIVITAMIN with MINERAL TABLET. PO SCH (09:19)
[2019-09-09] MEDS ORDERED: MAGNESIUM SULFATE 2GM 50 ML IV ONE (10:15)
--- NOTE | 2019-09-09 10:39 | NUR ---
IP: Pt is COVID negative.
--- NOTE | 2019-09-09 10:42 | PDOC ---
IM PROGRESS NOTES- Subjective Subjective No pain,fever. Has headaches,dyspnea,cough with clear mucus. Objective Vitals/I&O Vital Signs Date Time Temp Pulse Resp B/P (MAP) Pulse Ox O2 Delivery O2 Flow Rate FiO2 09/09/19 09:19 83 140/77 09/09/19 08:00 Nasal Cannula 5.0 09/09/19 07:45 98.5 95 98.5 09/09/19 03:15 16 I & O 09/08/19 09/08/19 09/09/19 15:00 23:00 07:00 Intake Total 840 ml Output Total 300 ml Balance 540 ml Physical Exam Physical Exam General appearance - alert,ill appearing, and in mild distress and oriented to person, place, and time Mental Status - alert, oriented to person, place, and time, affect appropriate to mood Head - normal Chest - decreased breath sounds bilaterally Heart - S1 and S2 normal Abdomen - soft, nontender, nondistended, no masses or organomegaly Neurological - alert and oriented Musculoskeletal - no muscular tenderness noted Extremities - no pedal edema Skin - warm and dry Labs Laboratory Tests Test 09/08/19 10:40 09/08/19 11:00 09/08/19 12:37 09/09/19 04:40 O2 Saturation 92 % (92-99) Arterial Blood pH 7.36 (7.35-7.45) Arterial Blood pCO2 at Patient Temp 58 mmHg (35-46) H Arterial Blood pO2 at Patient Temp 70 mmHg (65-108) Arterial Blood HCO3 32 mmol/L (21-28) H Arterial Blood Base Excess 5 mmol/L (-3-3) H FiO2 36% Coronavirus (COVID-19)(PCR) See separate report Urine Collection Type Unknown Urine Color Yellow Urine Clarity Turbid Urine pH 6.0 (<5.0-8.0) Urine Specific [place] 1.025 (1.000-1.030) Urine Protein >=300 mg/dL (NEG-TRACE) Urine Glucose (UA) Negative mg/dL (NEG) Urine Ketones (Stick) Negative mg/dL (NEG) Urine Blood Negative (NEG) Urine Nitrite Negative (NEG) Urine Bilirubin Small (NEG) Urine Urobilinogen Dipstick 1.0 mg/dL (0.2 mg/dL) Urine Leukocyte Esterase Small (NEG) Urine RBC 0 /HPF (0-2) Urine WBC 11-20 /HPF (0-4) Urine Squamous Epithelial Cells Mod /LPF Urine Transitional Epithelial Cells Few /LPF Urine Amorphous Sediment Present /HPF Urine Bacteria 0 /HPF (0-FEW) Urine Hyaline Casts Moderate /HPF Urine Mucus Slight /LPF White Blood Count 5.5 x10^3/uL (4.0-11.0) Red Blood Count 4.06 x10^6/uL (3.50-5.40) Hemoglobin 11.9 g/dL (12.0-15.5) L Hematocrit 37.5 % (36.0-47.0) Mean Corpuscular Volume 92 fL (79-100) Mean Corpuscular Hemoglobin 29 pg (25-35) Mean Corpuscular Hemoglobin Concent 32 g/dL (31-37) Red Cell Distribution Width 13.7 % (11.5-14.5) Platelet Count 277 x10^3/uL (140-400) Neutrophils (%) (Auto) 71 % (31-73) Lymphocytes (%) (Auto) 14 % (24-48) L Monocytes (%) (Auto) 10 % (0-9) H Eosinophils (%) (Auto) 5 % (0-3) H Basophils (%) (Auto) 1 % (0-3) Neutrophils # (Auto) 3.9 x10^3/uL (1.8-7.7) Lymphocytes # (Auto) 0.7 x10^3/uL (1.0-4.8) L Monocytes # (Auto) 0.5 x10^3/uL (0.0-1.1) Eosinophils # (Auto) 0.3 x10^3/uL (0.0-0.7) Basophils # (Auto) 0.1 x10^3/uL (0.0-0.2) Sodium Level 143 mmol/L (136-145) Potassium Level 4.2 mmol/L (3.5-5.1) Chloride Level 104 mmol/L (98-107) Carbon Dioxide Level 37 mmol/L (21-32) H Anion Gap 2 (6-14) L Blood Urea Nitrogen 11 mg/dL (7-20) Creatinine 0.8 mg/dL (0.6-1.0) Estimated GFR (Cockcroft-Gault) 86.8 BUN/Creatinine Ratio 14 (6-20) Glucose Level 93 mg/dL (70-99) Calcium Level 8.6 mg/dL (8.5-10.1) Magnesium Level 1.7 mg/dL (1.8-2.4) L Total Bilirubin 0.4 mg/dL (0.2-1.0) Aspartate Amino Transferase (AST) 20 U/L (15-37) Alanine Aminotransferase (ALT) 14 U/L (14-59) Alkaline Phosphatase 71 U/L (46-116) Total Protein 6.4 g/dL (6.4-8.2) Albumin 2.4 g/dL (3.4-5.0) L Albumin/Globulin Ratio 0.6 (1.0-1.7) L Laboratory Tests 09/09/19 04:40 Laboratory Tests 09/09/19 04:40 Meds Current Medications Medications (Trade) Dose Ordered Sig/Riccardo Route PRN Reason Start Time Stop Time Status Last Admin Dose Admin Iohexol (Omnipaque 350 Mg/ml) 100 ml 1X ONCE IV 09/08/19 13:00 09/08/19 13:07 DC 09/08/19 13:25 Aspirin (Aspirin Chewable) 81 mg DAILY PO 09/09/19 09:00 09/09/19 09:18 Losartan Potassium (Cozaar) 25 mg DAILY PO 09/09/19 09:00 09/09/19 09:19 Metoprolol Tartrate (Lopressor) 25 mg BID PO 09/08/19 21:00 09/09/19 09:19 Tramadol HCl (Ultram) 50 mg Q6H PRN PO MODERATE PAIN, SEVERE PAIN 09/08/19 16:15 09/08/19 21:13 Vitamin D (Vitamin D3) 1,000 unit DAILY PO 09/09/19 09:00 09/09/19 09:19 Hydrochlorothiazide (Microzide) 12.5 mg DAILY PO 09/09/19 09:00 09/09/19 09:19 Multivitamins (Thera M Plus) 1 tab DAILY PO 09/09/19 09:00 09/09/19 09:19 Potassium Chloride (Klor-Con) 10 meq BIDWMEALS PO 09/09/19 08:00 09/09/19 09:18 Acetaminophen (Tylenol) 650 mg PRN Q6HRS PRN PO MILD PAIN / TEMP > 100.3'F 09/08/19 16:15 09/09/19 06:12 Enoxaparin Sodium (Lovenox 40mg Syringe) 40 mg Q24H SQ 09/08/19 21:00 09/08/19 20:17 Amlodipine Besylate (Norvasc) 5 mg DAILY PO 09/08/19 16:45 09/09/19 09:19 Atorvastatin Calcium (Lipitor) 10 mg QHS PO 09/08/19 21:00 09/08/19 20:17 Magnesium Sulfate 50 ml @ 25 mls/hr 1X ONCE IV 09/08/19 17:15 09/08/19 19:14 DC 09/08/19 17:48 Assessment Assessment 1. Acute on chronic hypoxic respiratory failure with hypercapnia. 2. Possible exacerbation of chronic obstructive pulmonary disease. 3. Rheumatoid lung disease. The patient was recently weaned off prednisone. 4. Diastolic congestive heart failure with ejection fraction of 50%. 5. Coronary artery disease. 6. History of cardiac arrhythmia with cardiac pacemaker. 7. Suspected COVID-19 infection. 8. Moderate pulmonary hypertension. 9. Physical deconditioning. 10. Osteoarthritis. 11. 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 12. Rheumatoid arthritis and rheumatoid lung disease. 13. Hypertension. 14. Hypomagnesemia with magnesium of 1.6. PLAN: The patient is currently hypoxic and is not able to tolerate increasing her oxygen because of the side effects and hypercapnia. I will not start her on steroids at this time because of the suspected COVID-19 infection. We will consult Dr. Clark for pulmonary evaluation and management and Dr. Bae for Infectious Disease evaluation and management. COVID-19 test has been done and the patient has been placed in isolation. Currently, she is in the emergency room, awaiting for bed placement. For details, please refer to the orders. Because of the accelerated hypertension, I will add amlodipine 5 mg daily and also started on p.r.n. IV hydralazine. Prognosis of this patient is very poor due to her multiple medical problems. Because of the lymphadenopathy, consideration will be given to metastatic lung cancer, but previously the fine grade bulldozer operator had stated that she did not appear to have metastatic lung cancer. For details, please refer to the orders. Covid-19 is negative. Respiratory failure - start IV steroids. Rheumatoid Lung disease Hypomagnesemia- replace. Plan Plan For more details regarding further plans, please refer to the orders. CAROLINE EATON MD September 09, 2019 10:41
--- NOTE | 2019-09-09 11:03 | NUR ---
report received ronna Jimenez RN. Patient transferred to unit at approx 1100 via wheelchair and oxygen. The patient is oriented to new room staff and surroundings. will continue to monitor.
[2019-09-09 11:06] VITALS: BP 108/69
[2019-09-09] MEDS: methylPREDNISolone SOD SUCC PF 125 MG/2 ML VIAL. IV SCH ×2 (12:26→21:35)
[2019-09-09] MEDS: traMADol 50 MG TABLET PO PRN (12:27)
[2019-09-09] MEDS: ALBUTEROL SULFATE 2.5 MG/3 ML NEBU. NEB SCH ×2 (13:15→20:00)
[2019-09-09] MEDS: BUDESONIDE 0.5 MG/2 ML NEBU. NEB SCH ×2 (13:15→20:00)
--- NOTE | 2019-09-09 13:44 | CONS ---
DATE OF CONSULTATION: ATTENDING PHYSICIAN: Jose Luis Davidson MD REASON FOR CONSULTATION: Dyspnea and respiratory failure. HISTORY OF PRESENT ILLNESS: This is a 64-year-old -[place]os[place] female who has a history of chronic hypoxic respiratory failure. She is chronically on 2 liters nasal cannula at home and at times uses 3-4 liters with exertion. She has a history of tobaccoism. She has a [id number] smoking history; however, she has been a former smoker for greater than 20 years as well. She presented to the Emergency Department with complaints of shortness of breath x 1 week in combination with generalized malaise and fatigue and increased cough with clear thick sputum. She also reports bilateral pleuritic pain, she relates to the increased coughing. She reports that she has been using her Symbicort and ProAir at the prescribed doses. She also reports that she has been noncompliant with her CPAP for the last month. She reports that it has not been doing her any good, so she quit using it. In the Emergency Department, she underwent a CTA of her chest, which showed no evidence of pulmonary embolism, diffuse mosaic ground glass opacities, nonspecific and could be secondary to pneumonitis or an atypical pneumonia such as viral pneumonia. She also was noted to have multiple pulmonary masses, some of which were calcified, most of the nodules appear stable since her previous CT scan in 2019. She also underwent a chest x-ray, which showed unchanged bilateral pulmonary nodules in combination with mild bibasilar lung airspace opacities, likely secondary to atelectasis or infiltrates. She was admitted to the hospital with a pulmonary consultation and COVID-19 testing was performed. PAST MEDICAL HISTORY: She has a history of anxiety, cardiac arrhythmia, CAD, CHF, severe pulmonary hypertension, COPD with unknown FEV1, hyperlipidemia, rheumatoid arthritis, which she sees Dr. Mitchell for, obstructive sleep apnea, noncompliant with CPAP, and histoplasmosis. PAST SURGICAL HISTORY: She has a history of permanent pacemaker placement in 2009, right lung resection in 1996, hysterectomy, surgical repair of the left wrist fracture. SOCIAL HISTORY: She is a former smoker with a [id number] smoking history. She quit approximately 20 years ago. She denies any alcohol use and denies any recreational drug use. She does not use any assistive devices at home and currently lives at home by herself. FAMILY HISTORY: She has a father who is with Parkinson's disease. Her mother is with stroke. She has several siblings with history positive for heart disease, coronary artery disease, hypertension and obesity. She has one son who is reportedly healthy. REVIEW OF SYSTEMS: A 12-point was reviewed with the patient that is negative except for pertinent positives discussed in the history of present illness. MEDICATIONS: All medications have been reviewed that are listed on the MRAD including IV antibiotics and nebulized treatments. LABORATORY DATA: White blood cell 5.5, hemoglobin 11.9, hematocrit 37.5, platelet count 277. She had an arterial blood gas performed on 09/08/2019 which showed a pH of 7.36, PaCO2 of 58, pO2 of 70 and a bicarbonate of 32. Sodium of 143, potassium of 4.2, BUN of 11 and creatinine 0.8, magnesium was low at 1.7. She had an albumin of 2.4. Her BNP was 3256 and her glucose was 136. She had an elevated D-dimer, which was 2.0. Imaging as mentioned above in the HPI; however, reviewed. PHYSICAL EXAMINATION: VITAL SIGNS: Temperature is 98.0, heart rate is 89, blood pressure 108/69, oxygen saturation 97% on 5 liters nasal cannula. HEENT: Sclerae nonicteric. NECK: Supple. LUNGS: With diminished breath sounds, but no crackles. CARDIOVASCULAR: With regular rate and rhythm. ABDOMEN: Soft, nontender. EXTREMITIES: Without pitting edema and +2 pedal pulses. IMPRESSION: 1. Acute on respiratory failure secondary to multifocal etiologies such as interstitial lung disease, pulmonary hypertension, acute exacerbation of COPD 2. Chronic obstructive pulmonary disease exacerbation. 3. Lung nodules with ground glass bilateral infiltrates, which have been present on CAT scan since 2017. 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 4. Severe pulmonary hypertension with last echocardiogram in June of 2018, which showed pulmonary artery pressure of 91 and an ejection fraction of 50%. 5. Rheumatoid arthritis, currently being followed by Dr. Mitchell, has been on intermittent steroid therapy, no longer taking Humira. 6. Mild obstructive sleep apnea, noncompliant with CPAP. 7. Cough. PLAN: 1. We will continue bronchodilators. SARS-CoV-2 testing, negative 2. Continue empiric antibiotics. The patient will be started on doxycycline, and monitor for clinical course. 3. Recommend PFTs as an outpatient. 4. Recommend compliance with CPAP. Education provided on the importance of continuing CPAP therapy, was previously on 18 cm of water pressure. 5. We will add IV steroids with a slow taper. 6. Discussed with RN and we will be happy to follow along with you. DIANA HOROWITZ MD DR: INES/sanchez JOB#: [id number] / [id number]
[2019-09-09 14:32] VITALS: BP 106/72
[2019-09-09] MEDS: INSULIN LISPRO 300 UNITS/3 ML VIAL. SQ SCH (16:30)
[2019-09-09] MEDS: MAGNESIUM OXIDE 400 MG TABLET PO SCH ×2 (16:41→21:36)
--- NOTE | 2019-09-09 17:06 | PDOC ---
Infectious Disease Note Vital Sign Vital Signs Vital Signs Date Time Temp Pulse Resp B/P (MAP) Pulse Ox O2 Delivery O2 Flow Rate FiO2 09/09/19 14:32 97.8 77 106/72 (83) 91 Nasal Cannula 5.0 97.8 09/09/19 03:15 16 Labs Lab Laboratory Tests Test 09/09/19 04:40 09/09/19 11:52 09/09/19 16:17 White Blood Count 5.5 x10^3/uL (4.0-11.0) Red Blood Count 4.06 x10^6/uL (3.50-5.40) Hemoglobin 11.9 g/dL (12.0-15.5) Hematocrit 37.5 % (36.0-47.0) Mean Corpuscular Volume 92 fL (79-100) Mean Corpuscular Hemoglobin 29 pg (25-35) Mean Corpuscular Hemoglobin Concent 32 g/dL (31-37) Red Cell Distribution Width 13.7 % (11.5-14.5) Platelet Count 277 x10^3/uL (140-400) Neutrophils (%) (Auto) 71 % (31-73) Lymphocytes (%) (Auto) 14 % (24-48) Monocytes (%) (Auto) 10 % (0-9) Eosinophils (%) (Auto) 5 % (0-3) Basophils (%) (Auto) 1 % (0-3) Neutrophils # (Auto) 3.9 x10^3/uL (1.8-7.7) Lymphocytes # (Auto) 0.7 x10^3/uL (1.0-4.8) Monocytes # (Auto) 0.5 x10^3/uL (0.0-1.1) Eosinophils # (Auto) 0.3 x10^3/uL (0.0-0.7) Basophils # (Auto) 0.1 x10^3/uL (0.0-0.2) Sodium Level 143 mmol/L (136-145) Potassium Level 4.2 mmol/L (3.5-5.1) Chloride Level 104 mmol/L (98-107) Carbon Dioxide Level 37 mmol/L (21-32) Anion Gap 2 (6-14) Blood Urea Nitrogen 11 mg/dL (7-20) Creatinine 0.8 mg/dL (0.6-1.0) Estimated GFR (Cockcroft-Gault) 86.8 BUN/Creatinine Ratio 14 (6-20) Glucose Level 93 mg/dL (70-99) Calcium Level 8.6 mg/dL (8.5-10.1) Magnesium Level 1.7 mg/dL (1.8-2.4) Total Bilirubin 0.4 mg/dL (0.2-1.0) Aspartate Amino Transf (AST/SGOT) 20 U/L (15-37) Alanine Aminotransferase (ALT/SGPT) 14 U/L (14-59) Alkaline Phosphatase 71 U/L (46-116) Total Protein 6.4 g/dL (6.4-8.2) Albumin 2.4 g/dL (3.4-5.0) Albumin/Globulin Ratio 0.6 (1.0-1.7) Glucose (Fingerstick) 136 mg/dL (70-99) 133 mg/dL (70-99) Micro Microbiology 09/08/19 Blood Culture - Preliminary, Resulted NO GROWTH AFTER 1 DAY Objective Assessment Atypical pneumonia. COVID-19 negative Adwqj-cd-mgefios respiratory failure. PCN allergy h/o histoplasmosis Rheumatoid induced ILD. off Humira h/o cardiac arrhythmia w/ PPM Plan Plan of Care Continue doxycycline Maintain aspiration precautions BC neg to date Supportive care D/w nursing Thank you [id number] Patient seen and examined. Chart reviewed in detail. Case discussed with AIR ANALYSIS ENGINEERING TECHNICIAN. Agree with above plan BRIDGER CHAMBERLAIN APRN September 09, 2019 17:06 NAOMI MONZON MD September 09, 2019 20:54
--- NOTE | 2019-09-09 17:50 | CONS ---
DATE OF CONSULTATION: 09/09/2019 REFERRING PHYSICIAN: Adi Davidson M.D. REASON FOR CONSULTATION: Pneumonia. HISTORY OF PRESENT ILLNESS: This patient is a 64-year-old -[place]an female with a history of chronic respiratory failure secondary to COPD and rheumatoid-induced interstitial lung disease, on home oxygen, who presented with complaints of generalized weakness and worsening dyspnea on exertion requiring increased oxygen. A chest CTA showed diffuse mosaic ground glass opacities, nonspecific and could be secondary to pneumonitis, atypical pneumonia such as viral pneumonia is possible. She was dosed with doxycycline. COVID-19 was negative. The patient says she is feeling a little bit better. She is requiring 5 liters of oxygen. She is followed by Dr. Mitchell for her interstitial lung disease. She says she has been off Humira for about 3 months and stopped taking the steroids about 3 weeks ago prior to admission. She denies having exposure to COVID. She pretty much stays indoors. She was on Cipro about a month ago for a kidney infection. She denies fevers, chills, or body aches. She has a dry cough. She denies nausea, vomiting, or diarrhea. Denies rash or itching. Denies sinus congestion or sore throat. PAST MEDICAL HISTORY: History of histoplasmosis over 30 years ago, chronic respiratory failure, COPD, rheumatoid-induced interstitial lung disease, on home oxygen 2-4 liters; history of cardiac arrhythmias, hypertension, hyperlipidemia, sleep apnea, carpal tunnel syndrome, anxiety, congestive heart failure, coronary artery disease, and pulmonary hypertension. PAST SURGICAL HISTORY: Tonsillectomy, right lobectomy, hysterectomy, oophorectomy-salpingectomy, left carpal tunnel release. SOCIAL HISTORY: The patient is and lives at home. She quit smoking about 20 years ago. She has a 6-year-old Yorkie/Catie Tzu mix. FAMILY HISTORY: Parkinson's disease, stroke, hypertension, coronary artery disease, and obesity. ALLERGIES: LISINOPRIL AND PENICILLIN WITH RASH. MEDICATIONS: Reviewed on the JUL and includes doxycycline and methylprednisolone. REVIEW OF SYSTEMS: Per HPI, otherwise all other review of systems are negative. PHYSICAL EXAMINATION: VITAL SIGNS: Temperature is 97.8, blood pressure 106/72, heart rate 77, respiratory rate 16, pulse oximetry is 91% on 5 liters of oxygen. BMI 26. GENERAL: The patient is propped up in bed, alert, appears relaxed. HEENT: Pupils are equally round. Oropharynx is pink and moist. No lesions seen. NECK: Supple. LUNGS: Clear to auscultation, no accessory muscle use. CARDIAC: S1 and S2. ABDOMEN: Soft and nontender with bowel sounds present. EXTREMITIES: No gross edema or cyanosis. SKIN: Warm to touch. No signs of rash. NEUROLOGIC: Alert and answering questions appropriately. Peripheral IV. LABORATORY DATA: Today's WBC 5.5, hemoglobin 11.9, platelets 277,000. Sodium 143, potassium 4.2, creatinine 0.8, BUN 11, bicarb 37, glucose 93, lactic acid 1.2. Total bilirubin 0.4, AST 20, ALT 14. Troponin 0.052. Albumin 2.4. BNP 3256. Urinalysis, unremarkable for infection. Blood cultures are negative today. COVID-19 PCR negative. Recent chest x-ray showed unchanged bilateral pulmonary nodules, mild bibasilar lung airspace opacities, likely atelectasis or infiltrates. Chest CTA as mentioned above also reports multiple pulmonary masses, some of which are calcified. Most of the nodules appear stable since prior exam; however, there is a mass in the left lower lobe, which is mildly larger. Moderate hilar, mediastinal, and mild hilar lymphadenopathy is new. IMPRESSION: 1. Atypical pneumonia, COVID-19 negative. 2. Vkkdk-uh-dpwuryk respiratory failure. 3. PENICILLIN ALLERGY. 4. History of histoplasmosis. 5. Rheumatoid-induced interstitial lung disease, off Humira. 6. History of cardiac arrhythmia with pacemaker. PLAN: 1. Continue doxycycline. 2. Maintain aspiration precautions. 3. Follow up on blood cultures. 4. Supportive care. 5. Discussed with nursing. Thank you, Dr. Davidson, for asking us to participate in this patient's care. Should you have further questions or concerns, please call. NAOMI MONZON MD DR: CHRIS/sanchez JOB#: [id number] / [id number]
[2019-09-09 19:50] VITALS: BP 113/70
[2019-09-09] MEDS: ATORVASTATIN CALCIUM 10 MG TABLET. PO SCH (21:36)
[2019-09-09] MEDS: DOXYCYCLINE HYCLATE 100 MG TABLET PO SCH (21:36)
[2019-09-09] MEDS: ENOXAPARIN 40 MG/0.4 ML SYRINGE. SQ SCH (21:37)
[2019-09-09 23:43] VITALS: BP 110/69
[2019-09-10 03:55] VITALS: BP 138/83
[2019-09-10] MEDS: ALBUTEROL SULFATE 2.5 MG/3 ML NEBU. NEB SCH ×6 (04:00→19:37)
[2019-09-10 07:00] VITALS: BP 131/80
[2019-09-10] MEDS: INSULIN LISPRO 300 UNITS/3 ML VIAL. SQ SCH ×2 (07:30→16:30)
[2019-09-10] MEDS: BUDESONIDE 0.5 MG/2 ML NEBU. NEB SCH ×2 (07:48→19:37)
[2019-09-10] MEDS: methylPREDNISolone SOD SUCC PF 125 MG/2 ML VIAL. IV SCH ×2 (08:08→21:46)
[2019-09-10] MEDS: ASPIRIN CHEWABLE 81 MG TABLET. PO SCH (08:09)
[2019-09-10] MEDS: CHOLECALCIFEROL (VITAMIN D3) 1,000 UNIT TABLET PO SCH (08:09)
[2019-09-10] MEDS: DOXYCYCLINE HYCLATE 100 MG TABLET PO SCH ×2 (08:09→21:46)
[2019-09-10] MEDS: POTASSIUM CHLORIDE 10 MEQ TABLET.ER. PO SCH ×2 (08:09→17:31)
[2019-09-10] MEDS: LOSARTAN POTASSIUM 25 MG TABLET. PO SCH (08:10)
[2019-09-10] MEDS: amLODIPine BESYLATE 5 MG TABLET PO SCH (08:10)
[2019-09-10] MEDS: MULTIVITAMIN with MINERAL TABLET. PO SCH (08:10)
[2019-09-10] MEDS: METOPROLOL TART IMMED RELEASE 25 MG TABLET. PO SCH ×2 (08:10→21:46)
[2019-09-10] MEDS: MAGNESIUM OXIDE 400 MG TABLET PO SCH ×3 (08:10→21:46)
[2019-09-10] MEDS: hydroCHLOROthiazide 12.5 MG CAPSULE PO SCH (08:10)
--- NOTE | 2019-09-10 09:47 | PDOC ---
PULMONARY PROGRESS NOTES Subjective PT. is resting on N/C Denies SOA or increased cough Vitals Vital Signs Date Time Temp Pulse Resp B/P (MAP) Pulse Ox O2 Delivery O2 Flow Rate FiO2 09/10/19 08:10 74 131/80 09/10/19 07:50 92 Nasal Cannula 4.0 09/10/19 07:00 98.0 20 98.0 ROS: No Nausea, No Chest Pain, No Abdominal Pain, No Increase Cough General: Alert, No acute distress Lungs: Clear, Other (diminshed in bases ) Cardiovascular: S1, S2 Abdomen: Soft Extremities: No Edema Labs Laboratory Tests Test 09/08/19 10:35 09/08/19 10:40 09/08/19 11:00 09/08/19 12:37 White Blood Count 6.8 x10^3/uL (4.0-11.0) Red Blood Count 4.46 x10^6/uL (3.50-5.40) Hemoglobin 12.9 g/dL (12.0-15.5) Hematocrit 40.7 % (36.0-47.0) Mean Corpuscular Volume 91 fL (79-100) Mean Corpuscular Hemoglobin 29 pg (25-35) Mean Corpuscular Hemoglobin Concent 32 g/dL (31-37) Red Cell Distribution Width 13.6 % (11.5-14.5) Platelet Count 314 x10^3/uL (140-400) Neutrophils (%) (Auto) 80 % (31-73) Lymphocytes (%) (Auto) 8 % (24-48) Monocytes (%) (Auto) 8 % (0-9) Eosinophils (%) (Auto) 3 % (0-3) Basophils (%) (Auto) 1 % (0-3) Neutrophils # (Auto) 5.4 x10^3/uL (1.8-7.7) Lymphocytes # (Auto) 0.6 x10^3/uL (1.0-4.8) Monocytes # (Auto) 0.6 x10^3/uL (0.0-1.1) Eosinophils # (Auto) 0.2 x10^3/uL (0.0-0.7) Basophils # (Auto) 0.1 x10^3/uL (0.0-0.2) D-Dimer (Annie) 2.01 ug/mlFEU (0.00-0.50) Sodium Level 143 mmol/L (136-145) Potassium Level 4.1 mmol/L (3.5-5.1) Chloride Level 103 mmol/L (98-107) Carbon Dioxide Level 37 mmol/L (21-32) Anion Gap 3 (6-14) Blood Urea Nitrogen 10 mg/dL (7-20) Creatinine 0.9 mg/dL (0.6-1.0) Estimated GFR (Cockcroft-Gault) 75.8 BUN/Creatinine Ratio 11 (6-20) Glucose Level 115 mg/dL (70-99) Lactic Acid Level 1.2 mmol/L (0.4-2.0) Calcium Level 8.8 mg/dL (8.5-10.1) Magnesium Level 1.6 mg/dL (1.8-2.4) Total Bilirubin 0.7 mg/dL (0.2-1.0) Aspartate Amino Transf (AST/SGOT) 20 U/L (15-37) Alanine Aminotransferase (ALT/SGPT) 17 U/L (14-59) Alkaline Phosphatase 76 U/L (46-116) Troponin I Quantitative 0.052 ng/mL (0.000-0.055) NA-Xpv-J-Type Natriuretic Peptide 3256 pg/mL (0-124) Total Protein 6.6 g/dL (6.4-8.2) Albumin 2.7 g/dL (3.4-5.0) Albumin/Globulin Ratio 0.7 (1.0-1.7) O2 Saturation 92 % (92-99) Arterial Blood pH 7.36 (7.35-7.45) Arterial Blood pCO2 at Patient Temp 58 mmHg (35-46) Arterial Blood pO2 at Patient Temp 70 mmHg (65-108) Arterial Blood HCO3 32 mmol/L (21-28) Arterial Blood Base Excess 5 mmol/L (-3-3) FiO2 36% Coronavirus (COVID-19)(PCR) See separate report Urine Collection Type Unknown Urine Color Yellow Urine Clarity Turbid Urine pH 6.0 (<5.0-8.0) Urine Specific [place] 1.025 (1.000-1.030) Urine Protein >=300 mg/dL (NEG-TRACE) Urine Glucose (UA) Negative mg/dL (NEG) Urine Ketones (Stick) Negative mg/dL (NEG) Urine Blood Negative (NEG) Urine Nitrite Negative (NEG) Urine Bilirubin Small (NEG) Urine Urobilinogen Dipstick 1.0 mg/dL (0.2 mg/dL) Urine Leukocyte Esterase Small (NEG) Urine RBC 0 /HPF (0-2) Urine WBC 11-20 /HPF (0-4) Urine Squamous Epithelial Cells Mod /LPF Urine Transitional Epithelial Cells Few /LPF Urine Amorphous Sediment Present /HPF Urine Bacteria 0 /HPF (0-FEW) Urine Hyaline Casts Moderate /HPF Urine Mucus Slight /LPF Test 09/09/19 04:40 09/09/19 11:52 09/09/19 16:17 09/09/19 20:42 White Blood Count 5.5 x10^3/uL (4.0-11.0) Red Blood Count 4.06 x10^6/uL (3.50-5.40) Hemoglobin 11.9 g/dL (12.0-15.5) Hematocrit 37.5 % (36.0-47.0) Mean Corpuscular Volume 92 fL (79-100) Mean Corpuscular Hemoglobin 29 pg (25-35) Mean Corpuscular Hemoglobin Concent 32 g/dL (31-37) Red Cell Distribution Width 13.7 % (11.5-14.5) Platelet Count 277 x10^3/uL (140-400) Neutrophils (%) (Auto) 71 % (31-73) Lymphocytes (%) (Auto) 14 % (24-48) Monocytes (%) (Auto) 10 % (0-9) Eosinophils (%) (Auto) 5 % (0-3) Basophils (%) (Auto) 1 % (0-3) Neutrophils # (Auto) 3.9 x10^3/uL (1.8-7.7) Lymphocytes # (Auto) 0.7 x10^3/uL (1.0-4.8) Monocytes # (Auto) 0.5 x10^3/uL (0.0-1.1) Eosinophils # (Auto) 0.3 x10^3/uL (0.0-0.7) Basophils # (Auto) 0.1 x10^3/uL (0.0-0.2) Sodium Level 143 mmol/L (136-145) Potassium Level 4.2 mmol/L (3.5-5.1) Chloride Level 104 mmol/L (98-107) Carbon Dioxide Level 37 mmol/L (21-32) Anion Gap 2 (6-14) Blood Urea Nitrogen 11 mg/dL (7-20) Creatinine 0.8 mg/dL (0.6-1.0) Estimated GFR (Cockcroft-Gault) 86.8 BUN/Creatinine Ratio 14 (6-20) Glucose Level 93 mg/dL (70-99) Calcium Level 8.6 mg/dL (8.5-10.1) Magnesium Level 1.7 mg/dL (1.8-2.4) Total Bilirubin 0.4 mg/dL (0.2-1.0) Aspartate Amino Transf (AST/SGOT) 20 U/L (15-37) Alanine Aminotransferase (ALT/SGPT) 14 U/L (14-59) Alkaline Phosphatase 71 U/L (46-116) Total Protein 6.4 g/dL (6.4-8.2) Albumin 2.4 g/dL (3.4-5.0) Albumin/Globulin Ratio 0.6 (1.0-1.7) Glucose (Fingerstick) 136 mg/dL (70-99) 133 mg/dL (70-99) 177 mg/dL (70-99) Test 09/10/19 07:42 Glucose (Fingerstick) 126 mg/dL (70-99) Laboratory Tests Test 09/09/19 11:52 09/09/19 16:17 09/09/19 20:42 09/10/19 07:42 Glucose (Fingerstick) 136 mg/dL (70-99) 133 mg/dL (70-99) 177 mg/dL (70-99) 126 mg/dL (70-99) Medications Active Scripts Medications Dose Route/Sig Max Daily Dose Days Date Category Once Daily (Multivitamin) 1 Each Tablet 1 Tab PO DAILY 05/05/19 Reported Colace (Docusate Sodium) 100 Mg Capsule 1 Cap PO PRN PRN 05/05/19 Reported Aspirin 81 Mg Tab.chew 1 Tab PO DAILY 05/05/19 Reported Klor-Con 10 (Potassium Chloride) 10 Meq Tablet.er 1 Tab PO BID 05/05/19 Reported Vitamin D3 (Cholecalciferol (Vitamin D3)) 2,000 Unit Tablet 1,000 Unit PO DAILY 05/05/19 Reported Losartan Potassium (Losartan Potassium) 25 Mg Tablet 25 Mg PO DAILY 05/05/19 Reported Symbicort 160-4.5 Mcg Inhaler (Budesonide/Formoterol Fumarate) 10.2 Gm Hfa.aer.ad 2 Puff IH BID 12/25/18 Reported Proventil Hfa (Albuterol Sulfate) 6.7 Gm Hfa.aer.ad 2 Puff IH Q4-6HRS PRN MDD 6 puff 7 11/03/18 Rx Aspirin Ec (Aspirin) 81 Mg Tablet. 81 Mg PO DAILYWBKFT 30 07/01/18 Rx Metoprolol Tartrate 25 Mg Tablet 25 Mg PO BID 06/28/18 Reported Hydrochlorothiazide Tablet (Hydrochlorothiazide) 12.5 Mg Tablet 12.5 Mg PO DAILY 02/19/15 Reported Simvastatin 40 Mg Tablet 40 Mg PO HS 02/19/15 Reported Ultram (Tramadol Hcl) 50 Mg Tablet 50 Mg PO Q6H PRN 02/19/15 Reported Comments CTA chest : Impression: 1. No evidence of pulmonary embolism. 2. Diffuse mosaic groundglass opacities nonspecific and could be secondary to pneumonitis. Atypical pneumonia such as viral pneumonia is possible. 3. Multiple pulmonary masses some of which are calcified. Most of the nodules appear stable since the prior examination however there is a mass in the left lower lobe which is mildly larger. This could be primary or metastatic lung cancer. 4. Moderate hilar and mediastinal and mild hilar lymphadenopathy is new and suggests metastatic cancer. Impression . IMPRESSION: 1. Acute on respiratory failure secondary to multifocal etiologies such as interstitial lung disease, pulmonary hypertension, acute exacerbation of COPD 2. Chronic obstructive pulmonary disease exacerbation. 3. Lung nodules with ground glass bilateral infiltrates, which have been present on CAT scan since 2017. 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 4. Severe pulmonary hypertension with last echocardiogram in June of 2018, which showed pulmonary artery pressure of 91 and an ejection fraction of 50%. 5. Rheumatoid arthritis, currently being followed by Dr. Mitchell, has been on intermittent steroid therapy, no longer taking Humira. 6. Mild obstructive sleep apnea, noncompliant with CPAP. 7. Cough. 8. Pt. had bronchoscopy in 12/2018 with no growth in BAL and negative for malignant cells Plan . PLAN: 1. We will continue bronchodilators. SARS-CoV-2 testing, negative 2. Continue empiric antibiotics. 3. Recommend PFTs as an outpatient. 4. Recommend compliance with CPAP. Education provided on the importance of continuing CPAP therapy, was previously on 18 cm of water pressure. 5. IV steroids with a slow taper. 6. Discussed with RN DVT/GI PPX DIANA HOROWITZ MD September 10, 2019 09:47
--- NOTE | 2019-09-10 09:56 | PDOC ---
Infectious Disease Note Subjective Subjective Breathing better, says back to baseline Remains on 5L O2 No F/C/cough ROS ROS as above Vital Sign Vital Signs Vital Signs Date Time Temp Pulse Resp B/P (MAP) Pulse Ox O2 Delivery O2 Flow Rate FiO2 09/10/19 08:10 74 131/80 09/10/19 07:50 92 Nasal Cannula 4.0 09/10/19 07:00 98.0 20 98.0 Physical Exam PHYSICAL EXAM GENERAL: Propped up in bed, alert, smiling HEENT: Pupils are equally round. Oropharynx is pink and moist. No lesions seen. NECK: Supple. LUNGS: Clear to auscultation, no accessory muscle use. CARDIAC: S1 and S2. ABDOMEN: Soft and nontender with bowel sounds present. EXTREMITIES: No gross edema or cyanosis. SKIN: Warm to touch. No signs of rash. NEUROLOGIC: Alert and answering questions appropriately. PIV Labs Lab Laboratory Tests Test 09/09/19 11:52 09/09/19 16:17 09/09/19 20:42 09/10/19 07:42 Glucose (Fingerstick) 136 mg/dL (70-99) 133 mg/dL (70-99) 177 mg/dL (70-99) 126 mg/dL (70-99) Micro Microbiology 09/08/19 Blood Culture - Preliminary, Resulted NO GROWTH AFTER 1 DAY Objective Assessment Atypical pneumonia. COVID-19 negative Incxb-xv-uepjlfx respiratory failure. PCN allergy h/o histoplasmosis Rheumatoid induced ILD. off Humira h/o cardiac arrhythmia w/ PPM Plan Plan of Care Clinically improving, continue doxycycline Maintain aspiration precautions BC neg to date Supportive care D/w Dr. Beltre Patient seen and examined. Chart reviewed in detail. Case discussed with MATTRESS FILLER.Agree with above plan BRIDGER CHAMBERLAIN APRN September 10, 2019 09:56 NAOMI MONZON MD September 10, 2019 16:47
--- NOTE | 2019-09-10 10:46 | PDOC ---
IM PROGRESS NOTES- Subjective Subjective No pain,fever. Feeling better.Has constipation. Objective Vitals/I&O Vital Signs Date Time Temp Pulse Resp B/P (MAP) Pulse Ox O2 Delivery O2 Flow Rate FiO2 09/10/19 08:10 74 131/80 09/10/19 07:50 92 Nasal Cannula 4.0 09/10/19 07:00 98.0 20 98.0 I & O 09/09/19 09/09/19 09/10/19 15:00 23:00 07:00 Intake Total 50 ml 200 ml 220 ml Balance 50 ml 200 ml 220 ml Physical Exam Physical Exam General appearance - alert,ill appearing, and in mild distress and oriented to person, place, and time Mental Status - alert, oriented to person, place, and time, affect appropriate to mood Head - normal Chest - decreased breath sounds bilaterally Heart - S1 and S2 normal Abdomen - soft, nontender, nondistended, no masses or organomegaly Neurological - alert and oriented Musculoskeletal - no muscular tenderness noted Extremities - no pedal edema Skin - warm and dry Labs Laboratory Tests Test 09/09/19 11:52 09/09/19 16:17 09/09/19 20:42 09/10/19 07:42 Glucose (Fingerstick) 136 mg/dL (70-99) H 133 mg/dL (70-99) H 177 mg/dL (70-99) H 126 mg/dL (70-99) H Meds Current Medications Medications (Trade) Dose Ordered Sig/Riccardo Route PRN Reason Start Time Stop Time Status Last Admin Dose Admin Magnesium Oxide (Magnesium Oxide) 400 mg TID PO 09/09/19 14:00 09/10/19 08:10 Methylprednisolone Sodium Succinate (SOLU-Medrol 125MG VIAL) 125 mg BID IV 09/09/19 11:00 09/10/19 08:08 Doxycycline Hyclate (Vibra-Tab) 100 mg BID PO 09/09/19 21:00 09/10/19 08:09 Albuterol Sulfate (Ventolin Neb Soln) 2.5 mg Q4HRS NEB 09/09/19 13:15 09/10/19 07:48 Budesonide (Pulmicort) 0.5 mg BID NEB 09/09/19 13:15 09/10/19 07:48 Assessment Assessment 1. Acute on chronic hypoxic respiratory failure with hypercapnia. 2. Possible exacerbation of chronic obstructive pulmonary disease. 3. Rheumatoid lung disease. The patient was recently weaned off prednisone. 4. Diastolic congestive heart failure with ejection fraction of 50%. 5. Coronary artery disease. 6. History of cardiac arrhythmia with cardiac pacemaker. 7. Suspected COVID-19 infection. 8. Moderate pulmonary hypertension. 9. Physical deconditioning. 10. Osteoarthritis. 11. 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 12. Rheumatoid arthritis and rheumatoid lung disease. 13. Hypertension. 14. Hypomagnesemia with magnesium of 1.6. PLAN: The patient is currently hypoxic and is not able to tolerate increasing her oxygen because of the side effects and hypercapnia. I will not start her on steroids at this time because of the suspected COVID-19 infection. We will consult Dr. Clark for pulmonary evaluation and management and Dr. Bae for Infectious Disease evaluation and management. COVID-19 test has been done and the patient has been placed in isolation. Currently, she is in the emergency room, awaiting for bed placement. For details, please refer to the orders. Because of the accelerated hypertension, I will add amlodipine 5 mg daily and also started on p.r.n. IV hydralazine. Prognosis of this patient is very poor due to her multiple medical problems. Because of the lymphadenopathy, consideration will be given to metastatic lung cancer, but previously the door builder had stated that she did not appear to have metastatic lung cancer. For details, please refer to the orders. Covid-19 is negative. Respiratory failure - start IV steroids. Rheumatoid Lung disease Hypomagnesemia- replace. ILD- IV steroids Atypical Pneumonia- Doxycycline. Constipation- Senna-s. Last Echo Dec 19 reviewed. Plan Plan For more details regarding further plans, please refer to the orders. CAROLINE EATON MD September 10, 2019 10:46
[2019-09-10 10:48] VITALS: BP 118/77
[2019-09-10] MEDS: SENNOSIDES/DOCUSATE 8.6/50MG TABLET. PO PRN (14:25)
[2019-09-10 15:00] VITALS: BP 121/77
[2019-09-10 19:30] VITALS: BP 140/88
[2019-09-10] MEDS: ATORVASTATIN CALCIUM 10 MG TABLET. PO SCH (21:46)
[2019-09-10] MEDS: ENOXAPARIN 40 MG/0.4 ML SYRINGE. SQ SCH (21:48)
[2019-09-10 22:30] VITALS: BP 147/87
[2019-09-11] MEDS: ALBUTEROL SULFATE 2.5 MG/3 ML NEBU. NEB SCH ×7 (00:03→20:11)
[2019-09-11 02:59] VITALS: BP 139/87
[2019-09-11 04:30] LABS: BASO % 0 % (0-3); EOS % 0 % (0-3); HEMATOCRIT 37.9 % (36.0-47.0); HEMOGLOBIN 12.2 g/dL (12.0-15.5); LYMPH # 0.2 x10^3/uL (1.0-4.8); LYMPH % 2 % (24-48); MEAN CORPUSCULAR HEMOGLOBIN 29 pg (25-35); MEAN CORPUSCULAR HGB CONC 32 g/dL (31-37); MEAN CORPUSCULAR VOLUME 91 fL (79-100); MONO # 0.2 x10^3/uL (0.0-1.1); MONO % 1 % (0-9); NEUT # 10.2 x10^3/uL (1.8-7.7); NEUT % 97 % (31-73); PLATELET COUNT 305 x10^3/uL (140-400); RED BLOOD COUNT 4.17 x10^6/uL (3.50-5.40); RED CELL DISTRIBUTION WIDTH 13.5 % (11.5-14.5); WHITE BLOOD COUNT 10.5 x10^3/uL (4.0-11.0)
[2019-09-11 04:40] LABS: CALCIUM 8.9 mg/dL (8.5-10.1); CREATININE 0.8 mg/dL (0.6-1.0); GFR 86.8; MAGNESIUM 1.8 mg/dL (1.8-2.4); POTASSIUM 4.2 mmol/L (3.5-5.1)
[2019-09-11 06:37] VITALS: BP 145/91
[2019-09-11] MEDS: INSULIN LISPRO 300 UNITS/3 ML VIAL. SQ SCH ×2 (07:30→16:30)
[2019-09-11 07:34] LABS: % BANDS 1 % (0-9); % LYMPHS 1 % (24-48); % MONOS 1 % (0-10); % SEGS 97 % (35-66); PLT ESTIMATE ADEQUATE (ADEQUATE)
--- NOTE | 2019-09-11 07:40 | PDOC ---
Infectious Disease Note Subjective Subjective Breathing better, says back to baseline Remains on 5L O2 cough + ROS ROS wt gain, not loss does have night sweats off and on for a while Vital Sign Vital Signs Vital Signs Date Time Temp Pulse Resp B/P (MAP) Pulse Ox O2 Delivery O2 Flow Rate FiO2 09/11/19 06:37 98.1 83 20 145/91 (109) 95 Nasal Cannula 5.0 98.1 Physical Exam PHYSICAL EXAM GENERAL: Propped up in bed, alert, smiling HEENT: Pupils are equally round. Oropharynx is pink and moist. No lesions seen. NECK: Supple. LUNGS: Clear to auscultation, no accessory muscle use. CARDIAC: S1 and S2. ABDOMEN: Soft and nontender with bowel sounds present. EXTREMITIES: No gross edema or cyanosis. SKIN: Warm to touch. No signs of rash. NEUROLOGIC: Alert and answering questions appropriately. PIV Labs Lab Laboratory Tests Test 09/10/19 07:42 09/10/19 11:48 09/10/19 16:55 09/10/19 21:27 Glucose (Fingerstick) 126 mg/dL (70-99) 163 mg/dL (70-99) 129 mg/dL (70-99) 121 mg/dL (70-99) Test 09/11/19 04:11 White Blood Count 10.5 x10^3/uL (4.0-11.0) Red Blood Count 4.17 x10^6/uL (3.50-5.40) Hemoglobin 12.2 g/dL (12.0-15.5) Hematocrit 37.9 % (36.0-47.0) Mean Corpuscular Volume 91 fL (79-100) Mean Corpuscular Hemoglobin 29 pg (25-35) Mean Corpuscular Hemoglobin Concent 32 g/dL (31-37) Red Cell Distribution Width 13.5 % (11.5-14.5) Platelet Count 305 x10^3/uL (140-400) Neutrophils (%) (Auto) 97 % (31-73) Lymphocytes (%) (Auto) 2 % (24-48) Monocytes (%) (Auto) 1 % (0-9) Eosinophils (%) (Auto) 0 % (0-3) Basophils (%) (Auto) 0 % (0-3) Neutrophils # (Auto) 10.2 x10^3/uL (1.8-7.7) Lymphocytes # (Auto) 0.2 x10^3/uL (1.0-4.8) Monocytes # (Auto) 0.2 x10^3/uL (0.0-1.1) Eosinophils # (Auto) 0.0 x10^3/uL (0.0-0.7) Basophils # (Auto) 0.0 x10^3/uL (0.0-0.2) Segmented Neutrophils % 97 % (35-66) Band Neutrophils % 1 % (0-9) Lymphocytes % 1 % (24-48) Monocytes % 1 % (0-10) Platelet Estimate Adequate (ADEQUATE) Sodium Level 143 mmol/L (136-145) Potassium Level 4.2 mmol/L (3.5-5.1) Chloride Level 100 mmol/L (98-107) Carbon Dioxide Level 41 mmol/L (21-32) Anion Gap 2 (6-14) Blood Urea Nitrogen 13 mg/dL (7-20) Creatinine 0.8 mg/dL (0.6-1.0) Estimated GFR (Cockcroft-Gault) 86.8 Glucose Level 149 mg/dL (70-99) Calcium Level 8.9 mg/dL (8.5-10.1) Magnesium Level 1.8 mg/dL (1.8-2.4) Micro Microbiology 09/08/19 Urine Culture - Final, Complete 09/08/19 Urine Culture Result 1 (MORGAN) - Final, Complete 09/08/19 Blood Culture - Preliminary, Resulted NO GROWTH AFTER 2 DAYS Objective Assessment Atypical pneumonia. COVID-19 negative [id number] respiratory failure. PCN allergy h/o histoplasmosis Rheumatoid induced ILD. off Humira h/o cardiac arrhythmia w/ PPM Pulmonary mass Plan Plan of Care Clinically improving, continue doxycycline Maintain aspiration precautions BC neg to date Supportive care likely will need biopsy, SANDRA PEÑA MD September 11, 2019 07:40
[2019-09-11] MEDS: BUDESONIDE 0.5 MG/2 ML NEBU. NEB SCH ×2 (07:50→20:11)
--- NOTE | 2019-09-11 09:25 | PDOC ---
IM PROGRESS NOTES- Subjective Subjective No pain,fever. Has increased coughing,sneezing.Has constipation. Objective Vitals/I&O Vital Signs Date Time Temp Pulse Resp B/P (MAP) Pulse Ox O2 Delivery O2 Flow Rate FiO2 09/11/19 07:53 Nasal Cannula 4.0 09/11/19 06:37 98.1 83 20 145/91 (109) 95 98.1 I & O 09/10/19 09/10/19 09/11/19 15:00 23:00 07:00 Intake Total 480 ml 360 ml 1000 ml Balance 480 ml 360 ml 1000 ml Physical Exam Physical Exam General appearance - alert,ill appearing, and in mild distress and oriented to person, place, and time Mental Status - alert, oriented to person, place, and time, affect appropriate to mood Head - normal Chest - decreased breath sounds bilaterally Heart - S1 and S2 normal Abdomen - soft, nontender, nondistended, no masses or organomegaly Neurological - alert and oriented Musculoskeletal - no muscular tenderness noted Extremities - no pedal edema Skin - warm and dry Labs Laboratory Tests Test 09/10/19 11:48 09/10/19 16:55 09/10/19 21:27 09/11/19 04:11 Glucose (Fingerstick) 163 mg/dL (70-99) H 129 mg/dL (70-99) H 121 mg/dL (70-99) H White Blood Count 10.5 x10^3/uL (4.0-11.0) Red Blood Count 4.17 x10^6/uL (3.50-5.40) Hemoglobin 12.2 g/dL (12.0-15.5) Hematocrit 37.9 % (36.0-47.0) Mean Corpuscular Volume 91 fL (79-100) Mean Corpuscular Hemoglobin 29 pg (25-35) Mean Corpuscular Hemoglobin Concent 32 g/dL (31-37) Red Cell Distribution Width 13.5 % (11.5-14.5) Platelet Count 305 x10^3/uL (140-400) Neutrophils (%) (Auto) 97 % (31-73) H Lymphocytes (%) (Auto) 2 % (24-48) L Monocytes (%) (Auto) 1 % (0-9) Eosinophils (%) (Auto) 0 % (0-3) Basophils (%) (Auto) 0 % (0-3) Neutrophils # (Auto) 10.2 x10^3/uL (1.8-7.7) H Lymphocytes # (Auto) 0.2 x10^3/uL (1.0-4.8) L Monocytes # (Auto) 0.2 x10^3/uL (0.0-1.1) Eosinophils # (Auto) 0.0 x10^3/uL (0.0-0.7) Basophils # (Auto) 0.0 x10^3/uL (0.0-0.2) Segmented Neutrophils % 97 % (35-66) H Band Neutrophils % 1 % (0-9) Lymphocytes % 1 % (24-48) L Monocytes % 1 % (0-10) Platelet Estimate Adequate (ADEQUATE) Sodium Level 143 mmol/L (136-145) Potassium Level 4.2 mmol/L (3.5-5.1) Chloride Level 100 mmol/L (98-107) Carbon Dioxide Level 41 mmol/L (21-32) H Anion Gap 2 (6-14) L Blood Urea Nitrogen 13 mg/dL (7-20) Creatinine 0.8 mg/dL (0.6-1.0) Estimated GFR (Cockcroft-Gault) 86.8 Glucose Level 149 mg/dL (70-99) H Calcium Level 8.9 mg/dL (8.5-10.1) Magnesium Level 1.8 mg/dL (1.8-2.4) Test 09/11/19 07:51 Glucose (Fingerstick) 125 mg/dL (70-99) H Laboratory Tests 09/11/19 04:11 Laboratory Tests 09/11/19 04:11 Meds Current Medications Medications (Trade) Dose Ordered Sig/Riccardo Route PRN Reason Start Time Stop Time Status Last Admin Dose Admin Senna/Docusate Sodium (Senna Plus) 2 tab PRN BID PRN PO CONSTIPATION 09/10/19 13:00 09/10/19 14:25 Assessment Assessment 1. Acute on chronic hypoxic respiratory failure with hypercapnia. 2. Possible exacerbation of chronic obstructive pulmonary disease. 3. Rheumatoid lung disease. The patient was recently weaned off prednisone. 4. Diastolic congestive heart failure with ejection fraction of 50%. 5. Coronary artery disease. 6. History of cardiac arrhythmia with cardiac pacemaker. 7. Suspected COVID-19 infection. 8. Moderate pulmonary hypertension. 9. Physical deconditioning. 10. Osteoarthritis. 11. 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 12. Rheumatoid arthritis and rheumatoid lung disease. 13. Hypertension. 14. Hypomagnesemia with magnesium of 1.6. PLAN: The patient is currently hypoxic and is not able to tolerate increasing her oxygen because of the side effects and hypercapnia. I will not start her on steroids at this time because of the suspected COVID-19 infection. We will consult Dr. Clark for pulmonary evaluation and management and Dr. Bae for Infectious Disease evaluation and management. COVID-19 test has been done and the patient has been placed in isolation. Currently, she is in the emergency room, awaiting for bed placement. For details, please refer to the orders. Because of the accelerated hypertension, I will add amlodipine 5 mg daily and also started on p.r.n. IV hydralazine. Prognosis of this patient is very poor due to her multiple medical problems. Because of the lymphadenopathy, consideration will be given to metastatic lung cancer, but previously the lead radiation therapist had stated that she did not appear to have metastatic lung cancer. For details, please refer to the orders. Covid-19 is negative. Respiratory failure - IV steroids. Rheumatoid Lung disease Hypomagnesemia- replace. ILD- IV steroids,Singulair Atypical Pneumonia- Doxycycline.Tessalon perles, Constipation- Senna-s.MOM today. Last Echo Dec 19 reviewed. Plan Plan For more details regarding further plans, please refer to the orders. CAROLINE EATON MD September 11, 2019 09:24
[2019-09-11] MEDS: MAGNESIUM HYDROXIDE 2,400 MG/30 ML ORAL.SUSP. PO PRN (09:35)
[2019-09-11] MEDS: POTASSIUM CHLORIDE 10 MEQ TABLET.ER. PO SCH ×2 (09:36→17:15)
[2019-09-11] MEDS: CHOLECALCIFEROL (VITAMIN D3) 1,000 UNIT TABLET PO SCH (09:37)
[2019-09-11] MEDS: amLODIPine BESYLATE 5 MG TABLET PO SCH (09:37)
[2019-09-11] MEDS: DOXYCYCLINE HYCLATE 100 MG TABLET PO SCH ×2 (09:37→21:26)
[2019-09-11] MEDS: MULTIVITAMIN with MINERAL TABLET. PO SCH (09:37)
[2019-09-11] MEDS: hydroCHLOROthiazide 12.5 MG CAPSULE PO SCH (09:38)
[2019-09-11] MEDS: ASPIRIN CHEWABLE 81 MG TABLET. PO SCH (09:38)
[2019-09-11] MEDS: METOPROLOL TART IMMED RELEASE 25 MG TABLET. PO SCH ×2 (09:38→21:27)
[2019-09-11] MEDS: MAGNESIUM OXIDE 400 MG TABLET PO SCH ×3 (09:38→21:26)
[2019-09-11] MEDS: methylPREDNISolone SOD SUCC PF 125 MG/2 ML VIAL. IV SCH ×2 (09:39→21:26)
[2019-09-11] MEDS: traMADol 50 MG TABLET PO PRN ×2 (09:39→21:32)
[2019-09-11] MEDS: BENZONATATE 100 MG CAPSULE. PO SCH ×3 (09:41→21:26)
[2019-09-11] MEDS: LOSARTAN POTASSIUM 25 MG TABLET. PO SCH (09:48)
[2019-09-11 11:00] VITALS: BP 161/96
--- NOTE | 2019-09-11 12:43 | NUR ---
SS following for discharge planning. SS reviewed pt chart and discussed with pt RN. Pt is from home with spouse and is currently requiring oxygen. Pt is COVID19 negative. Pt has home oxygen. SS will continue to follow for discharge planning.
--- NOTE | 2019-09-11 14:17 | PDOC ---
PULMONARY PROGRESS NOTES Subjective Patient not more short of air. At times she starts coughing mostly in the evening Vitals Vital Signs Date Time Temp Pulse Resp B/P (MAP) Pulse Ox O2 Delivery O2 Flow Rate FiO2 09/11/19 11:04 94 Nasal Cannula 4.0 09/11/19 11:00 98.4 71 20 161/96 (117) 98.4 ROS: No Nausea, No Chest Pain, No Abdominal Pain, No Increase Cough General: Alert, No acute distress Lungs: Clear, Other (diminshed in bases ) Cardiovascular: S1, S2 Abdomen: Soft Extremities: No Edema Labs Laboratory Tests Test 09/09/19 16:17 09/09/19 20:42 09/10/19 07:42 09/10/19 11:48 Glucose (Fingerstick) 133 mg/dL (70-99) 177 mg/dL (70-99) 126 mg/dL (70-99) 163 mg/dL (70-99) Test 09/10/19 16:55 09/10/19 21:27 09/11/19 04:11 09/11/19 07:51 Glucose (Fingerstick) 129 mg/dL (70-99) 121 mg/dL (70-99) 125 mg/dL (70-99) White Blood Count 10.5 x10^3/uL (4.0-11.0) Red Blood Count 4.17 x10^6/uL (3.50-5.40) Hemoglobin 12.2 g/dL (12.0-15.5) Hematocrit 37.9 % (36.0-47.0) Mean Corpuscular Volume 91 fL (79-100) Mean Corpuscular Hemoglobin 29 pg (25-35) Mean Corpuscular Hemoglobin Concent 32 g/dL (31-37) Red Cell Distribution Width 13.5 % (11.5-14.5) Platelet Count 305 x10^3/uL (140-400) Neutrophils (%) (Auto) 97 % (31-73) Lymphocytes (%) (Auto) 2 % (24-48) Monocytes (%) (Auto) 1 % (0-9) Eosinophils (%) (Auto) 0 % (0-3) Basophils (%) (Auto) 0 % (0-3) Neutrophils # (Auto) 10.2 x10^3/uL (1.8-7.7) Lymphocytes # (Auto) 0.2 x10^3/uL (1.0-4.8) Monocytes # (Auto) 0.2 x10^3/uL (0.0-1.1) Eosinophils # (Auto) 0.0 x10^3/uL (0.0-0.7) Basophils # (Auto) 0.0 x10^3/uL (0.0-0.2) Segmented Neutrophils % 97 % (35-66) Band Neutrophils % 1 % (0-9) Lymphocytes % 1 % (24-48) Monocytes % 1 % (0-10) Platelet Estimate Adequate (ADEQUATE) Sodium Level 143 mmol/L (136-145) Potassium Level 4.2 mmol/L (3.5-5.1) Chloride Level 100 mmol/L (98-107) Carbon Dioxide Level 41 mmol/L (21-32) Anion Gap 2 (6-14) Blood Urea Nitrogen 13 mg/dL (7-20) Creatinine 0.8 mg/dL (0.6-1.0) Estimated GFR (Cockcroft-Gault) 86.8 Glucose Level 149 mg/dL (70-99) Calcium Level 8.9 mg/dL (8.5-10.1) Magnesium Level 1.8 mg/dL (1.8-2.4) Test 09/11/19 12:18 Glucose (Fingerstick) 103 mg/dL (70-99) Laboratory Tests Test 09/10/19 16:55 09/10/19 21:27 09/11/19 04:11 09/11/19 07:51 Glucose (Fingerstick) 129 mg/dL (70-99) 121 mg/dL (70-99) 125 mg/dL (70-99) White Blood Count 10.5 x10^3/uL (4.0-11.0) Red Blood Count 4.17 x10^6/uL (3.50-5.40) Hemoglobin 12.2 g/dL (12.0-15.5) Hematocrit 37.9 % (36.0-47.0) Mean Corpuscular Volume 91 fL (79-100) Mean Corpuscular Hemoglobin 29 pg (25-35) Mean Corpuscular Hemoglobin Concent 32 g/dL (31-37) Red Cell Distribution Width 13.5 % (11.5-14.5) Platelet Count 305 x10^3/uL (140-400) Neutrophils (%) (Auto) 97 % (31-73) Lymphocytes (%) (Auto) 2 % (24-48) Monocytes (%) (Auto) 1 % (0-9) Eosinophils (%) (Auto) 0 % (0-3) Basophils (%) (Auto) 0 % (0-3) Neutrophils # (Auto) 10.2 x10^3/uL (1.8-7.7) Lymphocytes # (Auto) 0.2 x10^3/uL (1.0-4.8) Monocytes # (Auto) 0.2 x10^3/uL (0.0-1.1) Eosinophils # (Auto) 0.0 x10^3/uL (0.0-0.7) Basophils # (Auto) 0.0 x10^3/uL (0.0-0.2) Segmented Neutrophils % 97 % (35-66) Band Neutrophils % 1 % (0-9) Lymphocytes % 1 % (24-48) Monocytes % 1 % (0-10) Platelet Estimate Adequate (ADEQUATE) Sodium Level 143 mmol/L (136-145) Potassium Level 4.2 mmol/L (3.5-5.1) Chloride Level 100 mmol/L (98-107) Carbon Dioxide Level 41 mmol/L (21-32) Anion Gap 2 (6-14) Blood Urea Nitrogen 13 mg/dL (7-20) Creatinine 0.8 mg/dL (0.6-1.0) Estimated GFR (Cockcroft-Gault) 86.8 Glucose Level 149 mg/dL (70-99) Calcium Level 8.9 mg/dL (8.5-10.1) Magnesium Level 1.8 mg/dL (1.8-2.4) Test 09/11/19 12:18 Glucose (Fingerstick) 103 mg/dL (70-99) Medications Active Scripts Medications Dose Route/Sig Max Daily Dose Days Date Category Once Daily (Multivitamin) 1 Each Tablet 1 Tab PO DAILY 30 05/05/19 Reported Colace (Docusate Sodium) 100 Mg Capsule 1 Cap PO PRN PRN 30 05/05/19 Reported Aspirin 81 Mg Tab.chew 1 Tab PO DAILY 05/05/19 Reported Klor-Con 10 (Potassium Chloride) 10 Meq Tablet.er 1 Tab PO BID 30 05/05/19 Reported Vitamin D3 (Cholecalciferol (Vitamin D3)) 2,000 Unit Tablet 1,000 Unit PO DAILY 05/05/19 Reported Losartan Potassium (Losartan Potassium) 25 Mg Tablet 25 Mg PO DAILY 05/05/19 Reported Symbicort 160-4.5 Mcg Inhaler (Budesonide/Formoterol Fumarate) 10.2 Gm Hfa.aer.ad 2 Puff IH BID 12/25/18 Reported Proventil Hfa (Albuterol Sulfate) 6.7 Gm Hfa.aer.ad 2 Puff IH Q4-6HRS PRN MDD 6 puff 7 11/03/18 Rx Aspirin Ec (Aspirin) 81 Mg Tablet. 81 Mg PO DAILYWBKFT 30 07/01/18 Rx Metoprolol Tartrate 25 Mg Tablet 25 Mg PO BID 06/28/18 Reported Hydrochlorothiazide Tablet (Hydrochlorothiazide) 12.5 Mg Tablet 12.5 Mg PO DAILY 02/19/15 Reported Simvastatin 40 Mg Tablet 40 Mg PO HS 02/19/15 Reported Ultram (Tramadol Hcl) 50 Mg Tablet 50 Mg PO Q6H PRN 02/19/15 Reported Comments CTA chest : Impression: 1. No evidence of pulmonary embolism. 2. Diffuse mosaic groundglass opacities nonspecific and could be secondary to pneumonitis. Atypical pneumonia such as viral pneumonia is possible. 3. Multiple pulmonary masses some of which are calcified. Most of the nodules appear stable since the prior examination however there is a mass in the left lower lobe which is mildly larger. This could be primary or metastatic lung cancer. 4. Moderate hilar and mediastinal and mild hilar lymphadenopathy is new and suggests metastatic cancer. Impression . IMPRESSION: 1. Acute on respiratory failure secondary to multifocal etiologies such as interstitial lung disease, pulmonary hypertension, acute exacerbation of COPD 2. Chronic obstructive pulmonary disease exacerbation. 3. Lung nodules with ground glass bilateral infiltrates, which have been present on CAT scan since 2017. 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 4. Severe pulmonary hypertension with last echocardiogram in June of 2018, which showed pulmonary artery pressure of 91 and an ejection fraction of 50%. 5. Rheumatoid arthritis, currently being followed by Dr. Mitchell, has been on intermittent steroid therapy, no longer taking Humira. 6. Mild obstructive sleep apnea, noncompliant with CPAP. 7. Cough. 8. Pt. had bronchoscopy in 12/2018 with no growth in BAL and negative for malignant cells Plan . Respiratory status compensated, okay to discharge soon, Home with Phenergan and codeine. See below 1. We will continue bronchodilators. SARS-CoV-2 testing, negative 2. Continue empiric antibiotics. 3. Recommend PFTs as an outpatient. 4. Recommend compliance with CPAP. Education provided on the importance of continuing CPAP therapy, was previously on 18 cm of water pressure. 5. IV steroids with a slow taper. 6. Discussed with RN DVT/GI PPX DIANA HOROWITZ MD September 11, 2019 14:17
[2019-09-11 15:00] VITALS: BP 120/68
[2019-09-11 19:02] VITALS: BP 148/91
[2019-09-11] MEDS ORDERED: MONTELUKAST SODIUM 10 MG TABLET. PO SCH (21:00)
[2019-09-11] MEDS: ATORVASTATIN CALCIUM 10 MG TABLET. PO SCH (21:26)
[2019-09-11] MEDS: SENNOSIDES/DOCUSATE 8.6/50MG TABLET. PO PRN (21:26)
[2019-09-11] MEDS: ENOXAPARIN 40 MG/0.4 ML SYRINGE. SQ SCH (21:27)
[2019-09-11 23:23] VITALS: BP 169/96
[2019-09-12] MEDS: ALBUTEROL SULFATE 2.5 MG/3 ML NEBU. NEB SCH ×3 (00:34→12:22)
[2019-09-12 02:27] VITALS: BP 150/88
[2019-09-12 07:00] VITALS: BP 153/90
[2019-09-12] MEDS: INSULIN LISPRO 300 UNITS/3 ML VIAL. SQ SCH (07:30)
--- NOTE | 2019-09-12 07:46 | PDOC ---
Infectious Disease Note Subjective Subjective Breathing better, says back to baseline ROS ROS no n/v/d/ Vital Sign Vital Signs Vital Signs Date Time Temp Pulse Resp B/P (MAP) Pulse Ox O2 Delivery O2 Flow Rate FiO2 09/12/19 02:27 98.4 77 20 150/88 (108) 98 Nasal Cannula 5.0 98.4 Physical Exam PHYSICAL EXAM GENERAL: Propped up in bed, alert, smiling HEENT: Pupils are equally round. Oropharynx is pink and moist. No lesions seen. NECK: Supple. LUNGS: Clear to auscultation, no accessory muscle use. CARDIAC: S1 and S2. ABDOMEN: Soft and nontender with bowel sounds present. EXTREMITIES: No gross edema or cyanosis. SKIN: Warm to touch. No signs of rash. NEUROLOGIC: Alert and answering questions appropriately. PIV Labs Lab Laboratory Tests Test 09/11/19 07:51 09/11/19 12:18 09/11/19 17:18 09/11/19 20:31 Glucose (Fingerstick) 125 mg/dL (70-99) 103 mg/dL (70-99) 107 mg/dL (70-99) 141 mg/dL (70-99) Micro Microbiology 09/08/19 Urine Culture - Final, Complete 09/08/19 Urine Culture Result 1 (MORGAN) - Final, Complete 09/08/19 Blood Culture - Preliminary, Resulted NO GROWTH AFTER 2 DAYS Objective Assessment Atypical pneumonia. COVID-19 negative Oppqy-ts-sdqfson respiratory failure. PCN allergy h/o histoplasmosis Rheumatoid induced ILD. off Humira h/o cardiac arrhythmia w/ PPM Pulmonary mass Plan Plan of Care Clinically improving, doxycycline x 5 more days Maintain aspiration precautions BC neg to date Supportive care CT follow up with CASEY Jacob SAMIR R MD September 12, 2019 07:46
[2019-09-12] MEDS: BUDESONIDE 0.5 MG/2 ML NEBU. NEB SCH (08:08)
[2019-09-12] MEDS: CHOLECALCIFEROL (VITAMIN D3) 1,000 UNIT TABLET PO SCH (09:22)
[2019-09-12] MEDS: DOXYCYCLINE HYCLATE 100 MG TABLET PO SCH (09:23)
[2019-09-12] MEDS: MAGNESIUM OXIDE 400 MG TABLET PO SCH (09:23)
[2019-09-12] MEDS: MULTIVITAMIN with MINERAL TABLET. PO SCH (09:23)
[2019-09-12] MEDS: BENZONATATE 100 MG CAPSULE. PO SCH (09:23)
[2019-09-12] MEDS: LOSARTAN POTASSIUM 25 MG TABLET. PO SCH (09:23)
[2019-09-12] MEDS: hydroCHLOROthiazide 12.5 MG CAPSULE PO SCH (09:23)
[2019-09-12] MEDS: POTASSIUM CHLORIDE 10 MEQ TABLET.ER. PO SCH (09:23)
[2019-09-12] MEDS: ASPIRIN CHEWABLE 81 MG TABLET. PO SCH (09:23)
[2019-09-12 09:24] VITALS: BP 153/90
[2019-09-12] MEDS: methylPREDNISolone SOD SUCC PF 125 MG/2 ML VIAL. IV SCH (09:24)
[2019-09-12] MEDS: amLODIPine BESYLATE 5 MG TABLET PO SCH (09:24)
[2019-09-12] MEDS: METOPROLOL TART IMMED RELEASE 25 MG TABLET. PO SCH (09:24)
[2019-09-12] MEDS: traMADol 50 MG TABLET PO PRN (09:33)
[2019-09-12] MEDS: MAGNESIUM HYDROXIDE 2,400 MG/30 ML ORAL.SUSP. PO PRN (09:33)
[2019-09-12] MEDS: SENNOSIDES/DOCUSATE 8.6/50MG TABLET. PO PRN (09:33)
[2019-09-12] MEDS ORDERED: DOXY100T PO (10:33)
[2019-09-12] MEDS ORDERED: MONT10TA49 PO (10:33)
[2019-09-12] MEDS ORDERED: PRED-220 PO (10:33)
[2019-09-12] MEDS ORDERED: AMLO5TAB10 PO (10:33)
--- NOTE | 2019-09-12 10:37 | DISCH ---
DISCHARGE INSTRUCTIONS Condition on Discharge Condition on Discharge: Stable Activity After Discharge Activity Instructions for Disc: Avoid exertion Lifting Instructions after Dis: No heavy lifting Diet after Discharge Diet after Discharge: Cardiac Diet Texture: Regular Wound Incision Care Wound/Incision Care: No wound care needed Checks after Discharge Checks after discharge: Check blood press - daily, Weigh Yourself Daily Contacting the DRChloé after DC Call your doctor for: If your condition worsens Follow-Up Follow up with: Dr.Pratip singleton in 6 days Follow Up With: Treatment/Equipment after DC Adaptive Equipment Issued: None Discharge Respiratory Equipmen: Oxygen (4 lit/min), CPAP CAROLINE SINGLETON MD September 12, 2019 10:37
--- NOTE | 2019-09-12 10:44 | PDOC3 ---
IM DISCHARGE SUMMARY Date of Admission Date of Admission Date of Admission: September 08, 2019 at 14:06 Date of Discharge Date of Discharge 09/12/19 Primary Diagnosis Primary Diagnosis 1. Acute on chronic hypoxic respiratory failure with hypercapnia. 2. Possible exacerbation of chronic obstructive pulmonary disease. 3. Rheumatoid lung disease. The patient was recently weaned off prednisone. 4. Diastolic congestive heart failure with ejection fraction of 50%. 5. Coronary artery disease. 6. History of cardiac arrhythmia with cardiac pacemaker. 7. Suspected COVID-19 infection. 8. Moderate pulmonary hypertension. 9. Physical deconditioning. 10. Osteoarthritis. 11. 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 12. Rheumatoid arthritis and rheumatoid lung disease. 13. Hypertension. 14. Hypomagnesemia with magnesium of 1.6. Consults Consults Que Garcia MD; Irwin Beltre MD Labs Labs Laboratory Tests Test 09/11/19 12:18 09/11/19 17:18 09/11/19 20:31 09/12/19 08:27 Glucose (Fingerstick) 103 mg/dL (70-99) H 107 mg/dL (70-99) H 141 mg/dL (70-99) H 126 mg/dL (70-99) H Brief hospital course Brief hospital course This is a 64-year-old -[place] Citizen female who is known to have rheumatoid lung disease and was treated previously with steroids for a long time and previously had bronchoscopy with negative workup for any fungal infection including histoplasmosis and has chronic hypoxic respiratory failure with hypercapnia on oxygen by nasal cannula 2 liters per minute at rest and 3 liters per minute with exertion, started getting worse for last 3 days. She became more short of breath and has been weaker. She was tapered off the steroids about [address] Mitchell. The patient denies any fever, cold, chest pains, abdominal pain, diarrhea or constipation. She does complain of slight cough with occasional clear mucus. She denies any vomiting, hematemesis, epistaxis or hemoptysis, but does have frequent nausea. For last 3 days, her oxygen requirements have increased and she is now using 3 liters per minute at rest and 4 liters per minute with exertion. She cannot go above 4 liters because she gets lot of side effects of oxygen including tremors, dizziness, weakness and confusion. Because of her persistent shortness of breath, she came to the emergency room. In the emergency room, the patient was examined. CT scan of chest with contrast showed no evidence of pulmonary embolism, but has diffuse mosaic ground-glass opacities, nonspecific. The patient has previously ground-glass opacities. She has multiple pulmonary masses, some of which are calcified. There is a mass in the left lower lobe. There is mildly larger moderate hilar and mediastinal and mild hilar lymphadenopathy is new and suggest metastatic cancer. Previously, she has been diagnosed with rheumatoid lung disease. WBC count was 6.8, hemoglobin 12.9. ABG revealed pH 7.36, pCO2 of 58 and pO2 of 70 on FiO2 36%. D-dimer is 2.01. Sodium 143, potassium 4.1, BUN 10, creatinine 0.9, glucose 115, magnesium is 1.6, calcium 8.8, albumin 2.7. BNP is 3256. Troponin 0.052, calcium 1.2. Urinalysis is negative except for 11-20 wbc's and 0 bacteria and nitrite negative. Because of the acute on chronic hypoxic respiratory failure and accelerated hypertension, the patient was admitted for further evaluation and management. The patient is also going to be placed in isolation for suspected COVID-19 infection. The patient denies any exposure to anyone with COVID-19 infection and does not have any other significant history including travel. For more details regarding the past history, family history, social history, surgical history and other details, please refer to History and Physical. The patient is currently hypoxic and is not able to tolerate increasing her oxygen because of the side effects and hypercapnia. I will not start her on steroids at this time because of the suspected COVID-19 infection. We will consult Dr. Clark for pulmonary evaluation and management and Dr. Garcia for Infectious Disease evaluation and management. COVID-19 test has been done and the patient has been placed in isolation. Currently, she is in the emergency room, awaiting for bed placement. For details, please refer to the orders. Because of the accelerated hypertension, I will add amlodipine 5 mg daily and also started on p.r.n. IV hydralazine. Prognosis of this patient is very poor due to her multiple medical problems. Because of the lymphadenopathy, consideration will be given to metastatic lung cancer, but previously the heating and ventilating drafter had stated that she did not appear to have metastatic lung cancer. For details, please refer to the orders. Covid-19 is negative. Respiratory failure - IV steroids responded requiring O2 4 lit/min. Rheumatoid Lung disease Hypomagnesemia- replace. ILD- IV steroids,Singulair. Discharge On Prednisone taper- 40-30-20-10 each for 4 days. Likely will need prison steroids. Atypical Pneumonia- Doxycycline.Tespan gill, Improving. Discharge on Doxycycline for 5 days. Constipation- Senna-s.MOM today. Hypertension- Amlodipine added.Last Echo Dec 19 reviewed. Pulmonary Hypertension- mild to moderate- based on the last workup. Improving- ok to discharge.terminologist prognosis is poor. Medications Current Medications Medications (Trade) Dose Ordered Sig/Riccardo Route PRN Reason Start Time Stop Time Status Last Admin Dose Admin Montelukast Sodium (Singulair) 10 mg QHS PO 09/11/19 21:00 09/11/19 21:26 Medications reviewed and reconciled for discharge. Allergy Allergies Coded Allergies Type Severity Reaction Last Updated Verified Penicillins Allergy Intermediate RASH AND ITCHING 12/28/18 Yes YADI Inhibitors Adverse Reaction Intermediate COUGH 12/28/18 Yes Follow up in 6 days.Also see . DISPOSITION: Home Comments Discharge Management - 35 minutes. For other details please refer to discharge instructions CAROLINE EATON MD September 12, 2019 10:44
--- NOTE | 2019-09-12 11:50 | PDOC ---
PULMONARY PROGRESS NOTES Subjective Patient not more short of air. At times she starts coughing mostly in the evening Vitals Vital Signs Date Time Temp Pulse Resp B/P (MAP) Pulse Ox O2 Delivery O2 Flow Rate FiO2 09/12/19 09:33 95 Nasal Cannula 4.0 09/12/19 09:24 66 153/90 09/12/19 07:00 97.5 18 97.5 ROS: No Nausea, No Chest Pain, No Abdominal Pain, No Increase Cough General: Alert, No acute distress Lungs: Other (diminshed in bases ) Cardiovascular: S1, S2 Abdomen: Soft Extremities: No Edema Labs Laboratory Tests Test 09/10/19 11:48 09/10/19 16:55 09/10/19 21:27 09/11/19 04:11 Glucose (Fingerstick) 163 mg/dL (70-99) 129 mg/dL (70-99) 121 mg/dL (70-99) White Blood Count 10.5 x10^3/uL (4.0-11.0) Red Blood Count 4.17 x10^6/uL (3.50-5.40) Hemoglobin 12.2 g/dL (12.0-15.5) Hematocrit 37.9 % (36.0-47.0) Mean Corpuscular Volume 91 fL (79-100) Mean Corpuscular Hemoglobin 29 pg (25-35) Mean Corpuscular Hemoglobin Concent 32 g/dL (31-37) Red Cell Distribution Width 13.5 % (11.5-14.5) Platelet Count 305 x10^3/uL (140-400) Neutrophils (%) (Auto) 97 % (31-73) Lymphocytes (%) (Auto) 2 % (24-48) Monocytes (%) (Auto) 1 % (0-9) Eosinophils (%) (Auto) 0 % (0-3) Basophils (%) (Auto) 0 % (0-3) Neutrophils # (Auto) 10.2 x10^3/uL (1.8-7.7) Lymphocytes # (Auto) 0.2 x10^3/uL (1.0-4.8) Monocytes # (Auto) 0.2 x10^3/uL (0.0-1.1) Eosinophils # (Auto) 0.0 x10^3/uL (0.0-0.7) Basophils # (Auto) 0.0 x10^3/uL (0.0-0.2) Segmented Neutrophils % 97 % (35-66) Band Neutrophils % 1 % (0-9) Lymphocytes % 1 % (24-48) Monocytes % 1 % (0-10) Platelet Estimate Adequate (ADEQUATE) Sodium Level 143 mmol/L (136-145) Potassium Level 4.2 mmol/L (3.5-5.1) Chloride Level 100 mmol/L (98-107) Carbon Dioxide Level 41 mmol/L (21-32) Anion Gap 2 (6-14) Blood Urea Nitrogen 13 mg/dL (7-20) Creatinine 0.8 mg/dL (0.6-1.0) Estimated GFR (Cockcroft-Gault) 86.8 Glucose Level 149 mg/dL (70-99) Calcium Level 8.9 mg/dL (8.5-10.1) Magnesium Level 1.8 mg/dL (1.8-2.4) Test 09/11/19 07:51 09/11/19 12:18 09/11/19 17:18 09/11/19 20:31 Glucose (Fingerstick) 125 mg/dL (70-99) 103 mg/dL (70-99) 107 mg/dL (70-99) 141 mg/dL (70-99) Test 09/12/19 08:27 Glucose (Fingerstick) 126 mg/dL (70-99) Laboratory Tests Test 09/11/19 12:18 09/11/19 17:18 09/11/19 20:31 09/12/19 08:27 Glucose (Fingerstick) 103 mg/dL (70-99) 107 mg/dL (70-99) 141 mg/dL (70-99) 126 mg/dL (70-99) Medications Active Scripts Medications Dose Route/Sig Max Daily Dose Days Date Category Once Daily (Multivitamin) 1 Each Tablet 1 Tab PO DAILY 05/05/19 Reported Colace (Docusate Sodium) 100 Mg Capsule 1 Cap PO PRN PRN 05/05/19 Reported Aspirin 81 Mg Tab.chew 1 Tab PO DAILY 05/05/19 Reported Klor-Con 10 (Potassium Chloride) 10 Meq Tablet.er 1 Tab PO BID 30 05/05/19 Reported Vitamin D3 (Cholecalciferol (Vitamin D3)) 2,000 Unit Tablet 1,000 Unit PO DAILY 05/05/19 Reported Losartan Potassium (Losartan Potassium) 25 Mg Tablet 25 Mg PO DAILY 05/05/19 Reported Symbicort 160-4.5 Mcg Inhaler (Budesonide/Formoterol Fumarate) 10.2 Gm Hfa.aer.ad 2 Puff IH BID 12/25/18 Reported Proventil Hfa (Albuterol Sulfate) 6.7 Gm Hfa.aer.ad 2 Puff IH Q4-6HRS PRN MDD 6 puff 7 11/03/18 Rx Aspirin Ec (Aspirin) 81 Mg Tablet.dr 81 Mg PO DAILYWBKFT 30 07/01/18 Rx Metoprolol Tartrate 25 Mg Tablet 25 Mg PO BID 06/28/18 Reported Hydrochlorothiazide Tablet (Hydrochlorothiazide) 12.5 Mg Tablet 12.5 Mg PO DAILY 02/19/15 Reported Simvastatin 40 Mg Tablet 40 Mg PO HS 02/19/15 Reported Ultram (Tramadol Hcl) 50 Mg Tablet 50 Mg PO Q6H PRN 02/19/15 Reported Comments CTA chest : Impression: 1. No evidence of pulmonary embolism. 2. Diffuse mosaic groundglass opacities nonspecific and could be secondary to pneumonitis. Atypical pneumonia such as viral pneumonia is possible. 3. Multiple pulmonary masses some of which are calcified. Most of the nodules appear stable since the prior examination however there is a mass in the left lower lobe which is mildly larger. This could be primary or metastatic lung cancer. 4. Moderate hilar and mediastinal and mild hilar lymphadenopathy is new and suggests metastatic cancer. Impression . IMPRESSION: 1. Acute on respiratory failure secondary to multifocal etiologies such as interstitial lung disease, pulmonary hypertension, acute exacerbation of COPD 2. Chronic obstructive pulmonary disease exacerbation. 3. Lung nodules with ground glass bilateral infiltrates, which have been present on CAT scan since 2017. 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 4. Severe pulmonary hypertension with last echocardiogram in June of 2018, which showed pulmonary artery pressure of 91 and an ejection fraction of 50%. Right heart cath 2019, PA 48 5. Rheumatoid arthritis, currently being followed by Dr. Mitchell, has been on intermittent steroid therapy, no longer taking Humira. 6. Mild obstructive sleep apnea, noncompliant with CPAP. 7. Cough. 8. Pt. had bronchoscopy in 12/2018 with no growth in BAL and negative for malignant cells Plan . Respiratory status compensated, okay to discharge soon, Home with Phenergan and codeine. See below 1. We will continue bronchodilators. SARS-CoV-2 testing, negative 2. Continue empiric antibiotics. 3. Recommend PFTs as an outpatient. 4. Recommend compliance with CPAP. Education provided on the importance of continuing CPAP therapy, was previously on 18 cm of water pressure. 5. IV steroids with a slow taper. 6. Discussed with RN 7. ct chest with persistent GG infiltrates likely RA induced ILD, most of the nodules unchanged except mild increase in one LLL nodule, reactive adenopathy. Pt to f/u with Dr Beltre this month in office DVT/GI PPX JOSE CRUZ VELASQUEZ MD September 12, 2019 11:50
--- NOTE | 2019-09-12 14:02 | NUR ---
Discharge Note: RG GUTIERRES Discharge instructions and discharge home medications reviewed with Patient and a copy given. All questions have been answered and understanding verbalized.
== END 2019-09-12 12:00 | disposition home or self-care (01) | DRG 193 ==
LOC: ER 09:20 → ED HOLD 14:06 → 6 SOUTH 18:29 → 2 NORTH 09-09 10:29
PROVIDERS: ADMIT Internal Medicine; ATTEND Internal Medicine
DX: J18.9 Pneumonia, unspecified organism (principal); J96.22 Acute and chronic respiratory failure with hypercapnia; J96.21 Acute and chronic respiratory failure with hypoxia; J44.1 Chronic obstructive pulmonary disease with (acute) exacerbation; I50.30 Unspecified diastolic (congestive) heart failure; J44.0 Chronic obstructive pulmonary disease with (acute) lower respiratory infection; E78.5 Hyperlipidemia, unspecified; I27.20 Pulmonary hypertension, unspecified; K59.00 Constipation, unspecified; E83.42 Hypomagnesemia; I25.10 Atherosclerotic heart disease of native coronary artery without angina pectoris; I11.0 Hypertensive heart disease with heart failure; E78.00 Pure hypercholesterolemia, unspecified; G47.33 Obstructive sleep apnea (adult) (pediatric); M05.10 Rheumatoid lung disease with rheumatoid arthritis of unspecified site; R59.0 Localized enlarged lymph nodes; Z20.828 Contact with and (suspected) exposure to other viral communicable diseases; F41.9 Anxiety disorder, unspecified; Z95.0 Presence of cardiac pacemaker; Z90.2 Acquired absence of lung [part of]; Z87.891 Personal history of nicotine dependence; Z90.710 Acquired absence of both cervix and uterus; Z82.49 Family history of ischemic heart disease and other diseases of the circulatory system; Z88.0 Allergy status to penicillin; Z88.8 Allergy status to other drugs, medicaments and biological substances; Z91.19 Patient's noncompliance with other medical treatment and regimen; Z87.81 Personal history of (healed) traumatic fracture; Z82.3 Family history of stroke; Z82.0 Family history of epilepsy and other diseases of the nervous system; Z78.9 Other specified health status; Z90.722 Acquired absence of ovaries, bilateral
CPT/HCPCS: 36415; 36600; 71045; 71275; 80048; 80053; 81001; 82805; 82962; 83605; 83735; 83880; 84484; 85007; 85025; 85379; 87040; 87086; 87635; 93005; 94640; 94760; J1650; J2930; J3475; Q9967; G0378; J7613; J7626

== ENCOUNTER → 2019-09-20 | Outpatient (CLI) | payer OTHER, MEDICARE ==
[2019-09-12 09:24] VITALS: BP 153/90
[~2019-09-20] MED LIST changes: +AMLO5TAB10 PO; +DOXY100T PO; +MONT10TA49 PO; +PRED-220 PO
[2019-09-20 10:32] LABS: BASO % 1 % (0-3); EOS # 0.1 x10^3/uL (0.0-0.7); EOS % 2 % (0-3); HEMOGLOBIN 14.1 g/dL (12.0-15.5); LYMPH # 0.7 x10^3/uL (1.0-4.8); LYMPH % 9 % (24-48); MEAN CORPUSCULAR HEMOGLOBIN 29 pg (25-35); MEAN CORPUSCULAR HGB CONC 31 g/dL (31-37); MEAN CORPUSCULAR VOLUME 92 fL (79-100); MONO # 0.6 x10^3/uL (0.0-1.1); MONO % 8 % (0-9); NEUT # 6.4 x10^3/uL (1.8-7.7); NEUT % 81 % (31-73); PLATELET COUNT 305 x10^3/uL (140-400); RED BLOOD COUNT 4.87 x10^6/uL (3.50-5.40); RED CELL DISTRIBUTION WIDTH 14.4 % (11.5-14.5); WHITE BLOOD COUNT 7.9 x10^3/uL (4.0-11.0)
[2019-09-20 10:53] LABS: ALBUMIN 3.2 g/dL (3.4-5.0); CREATININE 0.8 mg/dL (0.6-1.0); GFR 86.8; POTASSIUM 3.9 mmol/L (3.5-5.1); TOTAL BILIRUBIN 0.5 mg/dL (0.2-1.0); TOTAL PROTEIN 6.5 g/dL (6.4-8.2)
== END | disposition home or self-care (01) ==
LOC: LAB 09:54
PROVIDERS: ATTEND Internal Medicine
DX: J96.01 Acute respiratory failure with hypoxia (principal)
CPT/HCPCS: 36415; 80053; 85025

== ENCOUNTER 2019-10-16 23:21 | Emergency (ER) | payer OTHER, MEDICARE ==
[~2019-10-16] VITALS: Ht 162.6 cm; Wt 63.6 kg
[~2019-10-16 23:21] MED LIST changes: +MULT-445 PO; -MULT1TAB52 PO
--- NOTE | 2019-10-17 00:04 | PHYS DOC ---
Past Medical History Past Medical History: Anxiety, Arrhythmia, CAD, CHF, COPD, High Cholesterol, Hypertension, Other Additional Past Medical Histor: RA, CARPEL TUNNEL LEFT WRIST, PACEMAKER,SLEEP APNEA Past Surgical History: Hysterectomy, Pacemaker, Tonsillectomy, Other Additional Past Surgical Histo: RIGHT HAND,RIGHT LUNG LOBECTOMY Smoking Status: Former Smoker Alcohol Use: None Drug Use: None General Adult EDM: Chief Complaint: VAGINAL BLEEDING HPI: HPI: Patient is a 64 year old female who presents with complaint of seeing some blood when she wiped after urinating. Patient states that she has had a hysterectomy so does not understand why there was any blood. She does indicate that she had some gas pains and wonders if that may have been the problem. She denies any vomiting or diarrhea. She denies any recent trauma to the vagina. [] Review of Systems: Review of Systems: Constitutional: Denies fever or chills. [] Respiratory: Denies cough or shortness of breath. [] Cardiovascular: Denies chest pain or edema. [] GI: Denies abdominal pain, nausea, vomiting or diarrhea. [] : Denies dysuria. Complains of vaginal spotting. [] Neurologic: Denies headache, focal weakness or sensory changes. [] Heart Score: Risk Factors: Risk Factors: DM, Current or recent (<one month) smoker, HTN, HLP, family history of CAD, obesity. Risk Scores: Score 0 - 3: 2.5% MACE over next 6 weeks - Discharge Home Score 4 - 6: 20.3% MACE over next 6 weeks - Admit for Clinical Observation Score 7 - 10: 72.7% MACE over next 6 weeks - Early Invasive Strategies Allergies: Allergies: Allergies Coded Allergies Type Severity Reaction Last Updated Verified Penicillins Allergy Intermediate RASH AND ITCHING 12/28/18 Yes YADI Inhibitors Adverse Reaction Intermediate COUGH 12/28/18 Yes Physical Exam: PE: Constitutional: Well developed, well nourished, no acute distress, non-toxic appearance. [] Neck: Normal range of motion, no tenderness, supple, no stridor. [] Cardiovascular: Regular rate and rhythm [] Lungs & Thorax: Bilateral breath sounds clear to auscultation [] Abdomen: Bowel sounds normal, soft, no tenderness. [] Skin: Warm, dry, no erythema, no rash. [] Extremities: No tenderness, no cyanosis, no clubbing, ROM intact. [] Neurologic: Alert and oriented X 3, no focal deficits noted. [] EKG: EKG: [] Radiology/Procedures: Radiology/Procedures: [] Course & Med Decision Making: Course & Med Decision Making Pertinent Labs and Imaging studies reviewed. (See chart for details) [] Dragon Disclaimer: Dragon Disclaimer: This electronic medical record was generated, in whole or in part, using a voice recognition dictation system. Departure Departure Impression: Primary Impression: UTI (urinary tract infection) Qualified Codes: N39.0 - Urinary tract infection, site not specified; R31.9 - Hematuria, unspecified Additional Impression: Hematuria Qualified Codes: R31.9 - Hematuria, unspecified Disposition: 01 HOME, SELF-CARE Condition: STABLE Referrals: CAROLINE EATON MD (PCP) Patient Instructions: Hematuria, Adult, Urinary Tract Infection Scripts Nitrofurantoin Monohyd/M-Cryst (MACROBID 100 MG CAPSULE) 100 Mg Capsule 1 CAP PO BID for 7 Days, #14 CAP 0 Refills Prov: SUREKHA LINO Jr. DO 10/17/19 Justicifation of Admission Dx: Justifications for Admission: Justification of Admission Dx: Comment: (Not applicable) SUREKHA LINO Jr. DO Oct 17, 2019 00:04
[2019-10-17 00:26] LABS: BILIRUBIN,URINE NEGATIVE (NEG); CLARITY,URINE CLEAR; COLOR,URINE YELLOW; NITRITE,URINE NEGATIVE (NEG); PROTEIN,URINE 30 mg/dL (NEG-TRACE); UROBILINOGEN,URINE 0.2 mg/dL (0.2 mg/dL)
[2019-10-17 00:29] LABS: AMORPHOUS SEDIMENT,UR PRESENT /HPF; BACTERIA,URINE FEW /HPF (0-FEW); HYALINE CASTS, URINE MODERATE /HPF; RBC,URINE TNTC /HPF (0-2); SQUAMOUS EPITHELIAL CELL,UR FEW /LPF
[2019-10-17] MEDS ORDERED: NITR100C62 PO (00:53)
[2019-10-17 01:10] VITALS: BP 150/97
== END 2019-10-17 01:04 | disposition home or self-care (01) ==
LOC: ER 23:21
DX: N39.0 Urinary tract infection, site not specified (principal); R31.9 Hematuria, unspecified; N89.8 Other specified noninflammatory disorders of vagina; R14.1 Gas pain; F41.9 Anxiety disorder, unspecified; I11.0 Hypertensive heart disease with heart failure; I50.9 Heart failure, unspecified; J44.9 Chronic obstructive pulmonary disease, unspecified; Z90.710 Acquired absence of both cervix and uterus; Z98.890 Other specified postprocedural states; Z95.0 Presence of cardiac pacemaker; Z87.891 Personal history of nicotine dependence; Z88.8 Allergy status to other drugs, medicaments and biological substances; Z88.0 Allergy status to penicillin
CPT/HCPCS: 81001; 87086; 99283

== ENCOUNTER → 2020-04-12 | Outpatient (CLI) | payer OTHER ==
[~2020-04-12] MED LIST changes: +AMLO-186 PO; -AMLO5TAB10 PO; -ASPI-612 PO; +ASPI-886 PO; +NITR100C62 PO
[2020-04-12 13:14] LABS: BASO # 0.1 x10^3/uL (0.0-0.2); BASO % 1 % (0-3); EOS # 0.1 x10^3/uL (0.0-0.7); EOS % 2 % (0-3); HEMATOCRIT 42.9 % (36.0-47.0); HEMOGLOBIN 14.4 g/dL (12.0-15.5); LYMPH # 0.7 x10^3/uL (1.0-4.8); LYMPH % 9 % (24-48); MEAN CORPUSCULAR HEMOGLOBIN 31 pg (25-35); MEAN CORPUSCULAR HGB CONC 34 g/dL (31-37); MEAN CORPUSCULAR VOLUME 93 fL (79-100); MONO # 0.4 x10^3/uL (0.0-1.1); MONO % 5 % (0-9); NEUT # 6.4 x10^3/uL (1.8-7.7); NEUT % 83 % (31-73); PLATELET COUNT 225 x10^3/uL (140-400); RED BLOOD COUNT 4.62 x10^6/uL (3.50-5.40); WHITE BLOOD COUNT 7.7 x10^3/uL (4.0-11.0)
[2020-04-12 13:34] LABS: ALBUMIN 3.5 g/dL (3.4-5.0); ALBUMIN/GLOBULIN RATIO 0.9 (1.0-1.7); GFR 67.1; POTASSIUM 3.6 mmol/L (3.5-5.1); TOTAL BILIRUBIN 0.7 mg/dL (0.2-1.0); TOTAL PROTEIN 7.3 g/dL (6.4-8.2)
[2020-04-12 13:43] LABS: CHOLESTEROL/HDL RATIO 2.7
== END ==
LOC: LAB 12:48
PROVIDERS: ATTEND Internal Medicine
DX: I10 Essential (primary) hypertension (principal)
CPT/HCPCS: 36415; 80053; 80061; 82550; 85025

== ENCOUNTER → 2020-11-29 | Outpatient (CLI) | payer OTHER ==
[2020-11-29 11:36] LABS: BASO # 0.1 x10^3/uL (0.0-0.2); BASO % 1 % (0-3); EOS # 0.1 x10^3/uL (0.0-0.7); EOS % 1 % (0-3); HEMATOCRIT 40.8 % (36.0-47.0); HEMOGLOBIN 13.5 g/dL (12.0-15.5); LYMPH % 10 % (24-48); MEAN CORPUSCULAR HEMOGLOBIN 31 pg (25-35); MEAN CORPUSCULAR HGB CONC 33 g/dL (31-37); MEAN CORPUSCULAR VOLUME 95 fL (79-100); MONO # 0.6 x10^3/uL (0.0-1.1); MONO % 6 % (0-9); NEUT % 83 % (31-73); PLATELET COUNT 288 x10^3/uL (140-400); RED BLOOD COUNT 4.32 x10^6/uL (3.50-5.40); RED CELL DISTRIBUTION WIDTH 12.8 % (11.5-14.5); WHITE BLOOD COUNT 9.7 x10^3/uL (4.0-11.0)
[2020-11-29 11:52] LABS: ALBUMIN 3.2 g/dL (3.4-5.0); ALBUMIN/GLOBULIN RATIO 0.8 (1.0-1.7); CALCIUM 9.2 mg/dL (8.5-10.1); GFR 66.9; POTASSIUM 4.3 mmol/L (3.5-5.1); TOTAL BILIRUBIN 0.7 mg/dL (0.2-1.0); TOTAL PROTEIN 7.4 g/dL (6.4-8.2)
[2020-11-29 11:53] LABS: CHOLESTEROL/HDL RATIO 3.1
[2020-11-29 12:02] LABS: FREE T4 0.94 ng/dL (0.76-1.46); THYROID STIM HORMONE (TSH) 0.925 uIU/mL (0.358-3.74)
== END ==
LOC: LAB 11:01
PROVIDERS: ATTEND Internal Medicine
DX: I10 Essential (primary) hypertension (principal); E78.2 Mixed hyperlipidemia
CPT/HCPCS: 36415; 80053; 80061; 82550; 84439; 84443; 85025

== ENCOUNTER → 2021-06-20 | Outpatient (CLI) | payer OTHER ==
[~2021-06-20] MED LIST changes: +POTA-112 PO; -POTA10TA6 PO
[2021-06-20 12:36] LABS: BASO # 0.1 x10^3/uL (0.0-0.2); BASO % 1 % (0-3); EOS # 0.1 x10^3/uL (0.0-0.7); EOS % 1 % (0-3); HEMATOCRIT 42.6 % (36.0-47.0); HEMOGLOBIN 13.8 g/dL (12.0-15.5); LYMPH # 0.9 x10^3/uL (1.0-4.8); LYMPH % 14 % (24-48); MEAN CORPUSCULAR HEMOGLOBIN 30 pg (25-35); MEAN CORPUSCULAR HGB CONC 32 g/dL (31-37); MEAN CORPUSCULAR VOLUME 93 fL (79-100); MONO # 0.4 x10^3/uL (0.0-1.1); MONO % 6 % (0-9); NEUT % 79 % (31-73); PLATELET COUNT 241 x10^3/uL (140-400); RED BLOOD COUNT 4.58 x10^6/uL (3.50-5.40); RED CELL DISTRIBUTION WIDTH 12.8 % (11.5-14.5); WHITE BLOOD COUNT 6.4 x10^3/uL (4.0-11.0)
[2021-06-20 12:54] LABS: ALBUMIN 3.4 g/dL (3.4-5.0); CREATININE 0.9 mg/dL (0.6-1.0); GFR 75.3; POTASSIUM 3.6 mmol/L (3.5-5.1); TOTAL BILIRUBIN 0.8 mg/dL (0.2-1.0); TOTAL PROTEIN 6.9 g/dL (6.4-8.2)
[2021-06-20 12:58] LABS: CHOLESTEROL/HDL RATIO 2.8
== END ==
LOC: LAB 11:55
PROVIDERS: ATTEND Internal Medicine
DX: I10 Essential (primary) hypertension (principal); E78.2 Mixed hyperlipidemia
CPT/HCPCS: 36415; 80053; 80061; 82550; 85025

== ENCOUNTER → 2021-07-01 | Outpatient (CLI) | payer OTHER ==
--- NOTE | 2021-07-01 13:11 | KCIC ---
Bilateral digital screening 2-D and 3-D (digital breast tomosynthesis) mammogram: Reason for examination: Routine screening. Comparison: Mammogram from February 03, 2019. Interpretation was made with the benefit of CAD. FINDINGS: Breast density: Category B. There are scattered areas of fibroglandular density. No suspicious breast mass, malignant appearing calcifications, or architectural distortion is seen. P reviously noted areas of concern in the 10:00 B position of the right breast and in the right retroar eolar region are stable and consistent with normal dense fibroglandular tissue. There are very small oil cyst in the right breast that is a benign finding. The pacemaker generator obscures a portion lef t axilla. IMPRESSION: No evidence of malignancy. Assessment: BI-RADS 2. Benign findings. Recommendation: Routine screening mammograms. The patient will receive a letter with the results in the mail. Patient information will be entered i nto the mammography reminder system with a target recall date for the next mammogram. A reminder boaz er will be generated. Electronically signed by: Coleen Neal MD (07/01/2021 1:08 PM) [id number]
--- NOTE | 2021-07-01 13:17 | KCIC ---
DXA BONE DENSITY AXIAL History: Estrogen deficiency Comparison: 02/03/2019 TECHNIQUE: Dual energy x-ray absorptiometry of the lumbar spine and left hip was performed. T-score o f average bone mineral density based was calculated based on standard deviations above or below the e xpected young adult normal value. Diagnostic definitions were established by the [employer] at[employer]. FINDINGS: The average bone mineral density associated with L1-L4 is 0.962 g/cm^2, corresponding with a T-score of -0.8. Change from baseline is -5.0%. The average total bone mineral density associated with left hip is 0.787 g/cm^2, corresponding with a T-score of -1.3. Change from baseline is -0.4%. Refer to the worksheets for full detail. IMPRESSION: 1. Osteopenia of the left hip without -0.4% change from 2019. 2. Normal bone mineral density in the lumbar spine with -5.0% change from 2019. Electronically signed by: Marty Hillman MD (07/01/2021 1:14 PM) [id number]
== END ==
LOC: KCIC MAMMO 09:52
PROVIDERS: ATTEND Internal Medicine
DX: R92.8 Other abnormal and inconclusive findings on diagnostic imaging of breast (principal); E28.39 Other primary ovarian failure; M85.88 Other specified disorders of bone density and structure, other site
CPT/HCPCS: 77066; 77080; G0279; 77062